=== PATIENT | male | born 1955 | race Caucasian/White ===

== ENCOUNTER 2016-11-12 13:28 | Inpatient (IN) | payer BC ==
[~2016-11-12] VITALS: Ht 152.4 cm; Wt 83.0 kg
[~2016-11-12 13:28] MED LIST: ASPI-664 PO; LISI20TA11 PO; METF500T4 PO
[2016-11-12 20:32] VITALS: Ht 152.4 cm; Wt 83.0 kg
[2016-11-12] MEDS ORDERED: morphine 2 MG INJ IV PRN (21:30)
[2016-11-12] MEDS ORDERED: ONDANSETRON 4 MG INJ IV PRN (21:30)
[2016-11-12] MEDS ORDERED: GLUCOSE GEL 15 GRAM TUBE BUCCAL PRN (22:00)
[2016-11-12] MEDS ORDERED: DEXTROSE 50% 50 ML SYRINGE IV PRN ×2 (22:00)
[2016-11-12] MEDS ORDERED: GLUCOSE GEL 15 GRAM TUBE PO PRN ×2 (22:00)
[2016-11-12] MEDS ORDERED: GLUCAGON 1 MG INJ IM PRN (22:00)
[2016-11-12] MEDS: CEFTRIAXONE 1 GM/50 ML (PMX) 50 ML IVPB SCH (22:29)
[2016-11-13 02:00] VITALS: BP 144/78; PULSE 79; RESP 18
[2016-11-13] MEDS: ACCU-CHEK XX SCH (02:00)
[2016-11-13] MEDS: PANTOPRAZOLE (EC) 40 MG TAB PO SCH (05:50)
[2016-11-13 06:08] LABS: ADD SCAN DIFF NO
[2016-11-13 06:15] LABS: BASOPHILS % 0.3 % (0.0-2.0); EOSINOPHILS # 0.1 10^3/ul (0.0-0.5); EOSINOPHILS % 1.8 % (0.0-7.0); HEMATOCRIT 37.4 % (42.0-52.0); HEMOGLOBIN 12.6 g/dl (14.0-18.0); LYMPHOCYTES # 1.2 10^3/ul (0.8-2.9); MEAN CORPUSCULAR HEMOGLOBIN 28.8 pg (29.0-33.0); MEAN CORPUSCULAR HGB CONC 33.7 g/dl (32.0-37.0); MEAN CORPUSCULAR VOLUME 85.6 fl (82.0-101.0); MEAN PLATELET VOLUME 10.4 fl (7.4-10.4); MONOCYTE # 0.5 10^3/ul (0.3-0.9); MONOCYTES % 6.8 % (0.0-11.0); NEUTROPHIL # 5.2 10^3/ul (1.6-7.5); NEUTROPHILS % 73.5 % (39.0-77.0); PLATELET COUNT 195 10^3/UL (140-415); RED BLOOD COUNT 4.37 10^6/ul (4.70-6.10); RED CELL DISTRIBUTION WIDTH 12.2 % (11.5-14.5); WHITE BLOOD COUNT 7.1 10^3/ul (4.8-10.8)
[2016-11-13 07:00] LABS: ALBUMIN 4.4 g/dl (3.3-4.9); ALBUMIN/GLOBULIN RATIO 1.37; BILIRUBIN,INDIRECT 0.2 mg/dl (0-1.1); BILIRUBIN,TOTAL 0.2 mg/dl (0.2-1.3); CALCIUM 9.7 mg/dl (8.4-10.2); CREATININE 1.17 mg/dl (0.61-1.24); POTASSIUM 4.6 mmol/L (3.5-5.1); TOTAL PROTEIN 7.6 g/dl (6.1-8.1)
[2016-11-13] MEDS ORDERED: metFORMIN 500 MG TAB PO SCH (08:05)
[2016-11-13] MEDS: INSULIN ASPART [NOVOLOG] 3 ML PEN SC SCH ×6 (08:21→21:51)
[2016-11-13 08:23] VITALS: BP 157/87; RESP 18
[2016-11-13] MEDS: ASPIRIN (EC) 81 MG TAB PO SCH (08:58)
[2016-11-13] MEDS: ENOXAPARIN 40 MG/0.4 ML SYG SC SCH (09:02)
--- NOTE | 2016-11-13 12:06 | HP ---
Date/Time of Note Date/Time of Note DATE: 11/13/16 TIME: 12:04 Assessment/Plan VTE Prophylaxis VTE Prophylaxis Intervention: ambulation Lines/Catheters IV Catheter Type (from Nrs): Saline Lock Assessment/Plan Chief Complaint/Hosp Course 1. Cellulitis left foot 2. Anemia 3. Hypertension uncontrolled 4. DM type II, uncontrolled 5. CKD, GFR 56 ml/min 6. Obesity 7. S/p cardiac angioplasty 3 vessels 2004 Problems: Assessment/Plan 1. Better DM type II control 2. Continue a/b 3. Wound care by dr Pardo possible I and D HPI/ROS Admit Date/Time Admit Date/Time Nov 12, 2016 at 19:40 Hx of Present Illness 61 yo [place] male reported that he stepped on the nail on 11/07/16, after that he felt pain and his left leg increases in size. There were purulent drainage out. Pt went in [facility] 0n 11/12/2016. He was transferred to [facility] per his insurance coverage ROS Constitutional: no complaints Respiratory: no complaints Cardiovascular: no complaints Musculoskeletal: restricted range of motion (left leg), swelling (left leg) Skin: skin lesions (left leg with discharge) Endocrine: temp intolerance, No dry skin, No no complaints, No other, No polydypsia, No polyuria, No weight change Psychological: anxiety, confusion, depression, no complaints, No nl mood/affect, No other, No suicidal PMH/Family/Social Past Medical History Medical History: coronary artery disease, high cholesterol, hypertension Past Surgical History Past Surgical Hx: coronary bypass surgery (3 vessels), other (left hernia repair when pt was 18 yo) Family History Significant Family History: no pertinent family hx Social History Alcohol Use: rarely Smoking Status: Former smoker Drug Use: none Exam/Review of Systems Vital Signs Vitals Vital Signs Date Time Temp Pulse Resp B/P Pulse Ox O2 Delivery O2 Flow Rate FiO2 11/13/16 08:23 99.1 94 18 157/87 97 11/13/16 02:00 Room Air Intake and Output 11/12/16 11/12/16 11/13/16 15:00 23:00 07:00 Intake Total 350 ml Output Total 800 ml Balance -450 ml Exam Constitutional: alert, oriented Psych: no complaints Head: normocephalic Eyes: nl conjunctiva ENMT: nl external ears & nose Neck: supple Respiratory: clear to auscultation, normal air movement Cardiovascular: regular rate and rhythm Gastrointestinal: soft Genitourinary - Male: nl scrotum Musculoskeletal: swelling (left foot with wound) Neurological: SYSTEM AUDITOR II-XII intact Lymph: nl lymph nodes Labs Result Diagram: 11/13/1654211/13/16542 Medications Medications Current Medications Aspirin (Halfprin) 81 mg DAILY PO Last administered on 11/13/16 08:58; Admin Dose 81 MG; Start 11/13/16 at 09:00 Pantoprazole (Protonix Tab) 40 mg DAILY@06 PO Last administered on 11/13/16 05: 50; Admin Dose 40 MG; Start 11/13/16 at 06:00 Acetaminophen (Tylenol Tab) 650 mg Q6H PRN PO PAIN AND OR ELEVATED TEMP; Start 11/12/16 at 21:30 Enoxaparin Sodium (Lovenox) 40 mg DAILY SC Last administered on 11/13/16 09:02 ; Admin Dose 40 MG; Start 11/13/16 at 09:00 Morphine Sulfate (morphine) 2 mg Q4H PRN IV PAIN; Start 11/12/16 at 21:30 Ondansetron HCl 4 mg 4 mg Q6H PRN IV NAUSEA AND/OR VOMITING; Start 11/12/16 at 21:30 Ceftriaxone Sodium (Rocephin) 50 ml @ 100 mls/hr Q24H IVPB Last administered on 11/12/16 22:29; Admin Dose 100 MLS/HR; Start 11/12/16 at 21:30 Diagnostic Test (Pha) (Accu-Chek) 1 ea 02 XX Last administered on 11/13/16 02: 00; Admin Dose 1 EA; Start 11/13/16 at 02:00 Miscellaneous Information 1 ea NOTE XX ; Start 11/12/16 at 22:00 Glucose (Glutose) 15 gm Q15M PRN PO DECREASED GLUCOSE; Start 11/12/16 at 22:00 Glucose (Glutose) 22.5 gm Q15M PRN PO DECREASED GLUCOSE; Start 11/12/16 at 22:00 Dextrose (D50w Syringe) 25 ml Q15M PRN IV DECREASED GLUCOSE; Start 11/12/16 at 22:00 Dextrose (D50w Syringe) 50 ml Q15M PRN IV DECREASED GLUCOSE; Start 11/12/16 at 22:00 Glucagon (Glucagen) 1 mg Q15M PRN IM DECREASED GLUCOSE; Start 11/12/16 at 22:00 Glucose (Glutose) 15 gm Q15M PRN BUCCAL DECREASED GLUCOSE; Start 11/12/16 at 22: 00 Insulin Glargine (Lantus) 15 unit DAILY@20 SC ; Start 11/13/16 at 20:00 ADAN PALMA Nov 13, 2016 12:06
[2016-11-13] MEDS ORDERED: METOPROLOL (XL) 50 MG TAB PO SCH (12:30)
[2016-11-13] MEDS: LINAGLIPTIN 5 MG TABLET PO SCH (13:19)
--- NOTE | 2016-11-13 14:00 | CONS ---
Date/Time of Note Date/Time of Note DATE: 11/13/16 TIME: 13:59 Assessment/Plan Assessment/Plan Problems: (1) Abscess of left foot (2) Cellulitis of left foot Additional Assessment/Plan Patient will be scheduled for surgery (I&D) of left foot abscess with cellulitis. Remain nonweightbearing on the left foot. At risk for limb loss. Thank you again for involving me in the care of this patient. If you have any questions regarding this case, please feel free to contact me at pager: or reach me at mobile: [phone]. Consultation Date/Type/Reason Admit Date/Time Nov 12, 2016 at 19:40 Date of Consultation: Nov 13, 2016 Type of Consultation: Foot and ankle surgery Hx of Present Illness Thank you very much for involving me in the care of this patient. As you very well know this is a 61-year-old [place] male patient who apparently stepped on a nail on November 07, 2016. I was consulted for evaluation of an active infection in the left foot. Patient reports pain, swelling and drainage from the left foot. Patient says that he went to [facility] on November 12, 2016 because the condition was getting worse. He says that he was evaluated there and was transferred to [facility] secondary to insurance coverage. Currently, patient denies fever and chills. Patient's past medical history significant for type 2 diabetes mellitus, hypertension, CKD, obesity, status post cardiac angioplasty 3 vessels 2003. Constitutional: No chills, No diaphoresis, No disoriented, No febrile, No improved, No no complaints, No other, No poor po, No requiring IVF, No requiring O2 Eyes: No discharge, No no complaints, No other, No pain, No redness, No visual change ENT: No bleeding, No congestion, No discharge, No dysphagia, No no complaints, No other, No pain, No sore throat Respiratory: no complaints, No cough, No other, No pain, No pleuritic pain, No shortness of breath, No sputum, No wheezing Cardiovascular: no complaints, No chest pain, No edema, No lightheadedness, No orthopenea, No other, No palpitations, No paroxysmal nocturnal dyspnea Gastrointestinal: No blood, No constipation, No decreased appetite, No diarrhea , No flatus, No nausea, No no complaints, No other, No pain, No passing stool, No vomiting Musculoskeletal: restricted range of motion (left leg), swelling (left leg) Skin: skin lesions (left leg with discharge) Psychological: no complaints Past Medical History As per history of present illness. Medical History: coronary artery disease, high cholesterol, hypertension Past Surgical History As per history of present illness. Past Surgical Hx: coronary bypass surgery, other Social History As per history of present illness. Alcohol Use: rarely Smoking Status: Former smoker Drug Use: none Exam/Review of Systems Vital Signs Vitals Vital Signs Date Time Temp Pulse Resp B/P Pulse Ox O2 Delivery O2 Flow Rate FiO2 11/13/16 08:23 99.1 94 18 157/87 97 11/13/16 02:00 Room Air Intake and Output 11/12/16 11/12/16 11/13/16 15:00 23:00 07:00 Intake Total 350 ml Output Total 800 ml Balance -450 ml Exam Morbidly obese male patient laying supine in bed. Dressing present on the left foot. Dressing was removed. Erythema noted involving the plantar medial and medial left foot with an obvious abscess. Puncture wound 2 noted with purulent drainage. Tender to examination to palpation. There is malodor present. Erythema extends to proximal ankle joint and is marked since admission to the emergency room. Labs reviewed. Imaging reviewed. Results Result Diagram: 11/13/16 0543 11/13/16 0543 Results 24 hrs Laboratory Tests Test 11/13/16 02:16 11/13/16 05:43 11/13/16 08:12 11/13/16 11:58 Bedside Glucose 361 H 322 H 393 H White Blood Count 7.1 # Red Blood Count 4.37 L Hemoglobin 12.6 L Hematocrit 37.4 L Mean Corpuscular Volume 85.6 Mean Corpuscular Hemoglobin 28.8 L Mean Corpuscular Hemoglobin Concent 33.7 Red Cell Distribution Width 12.2 Platelet Count 195 Mean Platelet Volume 10.4 Neutrophils % 73.5 Lymphocytes % 17.0 Monocytes % 6.8 Eosinophils % 1.8 Basophils % 0.3 Nucleated Red Blood Cells % 0.0 Neutrophils # 5.2 Lymphocytes # 1.2 Monocytes # 0.5 Eosinophils # 0.1 Basophils # 0.0 Nucleated Red Blood Cells # 0.0 Sodium Level 139 Potassium Level 4.6 Chloride Level 96 L Carbon Dioxide Level 27 Anion Gap 21 H Blood Urea Nitrogen 21 H Creatinine 1.17 Glucose Level 374 H Hemoglobin A1c 10.7 H Calcium Level 9.7 Total Bilirubin 0.2 Direct Bilirubin 0.00 Indirect Bilirubin 0.2 Aspartate Amino Transf (AST/SGOT) 20 Alanine Aminotransferase (ALT/SGPT) 20 Alkaline Phosphatase 78 Total Protein 7.6 Albumin 4.4 Globulin 3.20 Albumin/Globulin Ratio 1.37 Medications Medications Current Medications Aspirin (Halfprin) 81 mg DAILY PO Last administered on 11/13/16 08:58; Admin Dose 81 MG; Start 11/13/16 at 09:00 Pantoprazole (Protonix Tab) 40 mg DAILY@06 PO Last administered on 11/13/16 05: 50; Admin Dose 40 MG; Start 11/13/16 at 06:00 Acetaminophen (Tylenol Tab) 650 mg Q6H PRN PO PAIN AND OR ELEVATED TEMP; Start 11/12/16 at 21:30 Enoxaparin Sodium (Lovenox) 40 mg DAILY SC Last administered on 11/13/16 09:02 ; Admin Dose 40 MG; Start 11/13/16 at 09:00 Morphine Sulfate (morphine) 2 mg Q4H PRN IV PAIN; Start 11/12/16 at 21:30 Ondansetron HCl 4 mg 4 mg Q6H PRN IV NAUSEA AND/OR VOMITING; Start 11/12/16 at 21:30 Ceftriaxone Sodium (Rocephin) 50 ml @ 100 mls/hr Q24H IVPB Last administered on 11/12/16 22:29; Admin Dose 100 MLS/HR; Start 11/12/16 at 21:30 Diagnostic Test (Pha) (Accu-Chek) 1 ea 02 XX Last administered on 11/13/16 02: 00; Admin Dose 1 EA; Start 11/13/16 at 02:00 Miscellaneous Information 1 ea NOTE XX ; Start 11/12/16 at 22:00 Glucose (Glutose) 15 gm Q15M PRN PO DECREASED GLUCOSE; Start 11/12/16 at 22:00 Glucose (Glutose) 22.5 gm Q15M PRN PO DECREASED GLUCOSE; Start 11/12/16 at 22:00 Dextrose (D50w Syringe) 25 ml Q15M PRN IV DECREASED GLUCOSE; Start 11/12/16 at 22:00 Dextrose (D50w Syringe) 50 ml Q15M PRN IV DECREASED GLUCOSE; Start 11/12/16 at 22:00 Glucagon (Glucagen) 1 mg Q15M PRN IM DECREASED GLUCOSE; Start 11/12/16 at 22:00 Glucose (Glutose) 15 gm Q15M PRN BUCCAL DECREASED GLUCOSE; Start 11/12/16 at 22: 00 Insulin Glargine (Lantus) 15 unit DAILY@20 SC ; Start 11/13/16 at 20:00 Linagliptin (Tradjenta) 5 mg DAILY PO Last administered on 11/13/16 13:19; Admin Dose 5 MG; Start 11/13/16 at 12:30 Metoprolol Succinate (Toprol Xl) 50 mg DAILY PO Last administered on 11/13/16 13:22; Admin Dose 50 MG; Start 11/13/16 at 12:30 RAMA ROSSI DPM Nov 13, 2016 14:00
[2016-11-13] MEDS ORDERED: VANCOMYCIN IV PER PHARMACY XX SCH (15:30)
[2016-11-13] MEDS ORDERED: VANCOMYCIN 1.5 GM in SOD CHLORIDE 0.9% 250 ML IVPB SCH (17:00)
[2016-11-13] MEDS: metFORMIN 500 MG TAB PO SCH (17:39)
[2016-11-13] MEDS ORDERED: INSULIN GLARGINE [LANtus] 3 ML PEN SC SCH (20:00)
[2016-11-13 21:38] VITALS: BP 134/71; PULSE 94; RESP 20
[2016-11-13] MEDS: CEFTRIAXONE 1 GM/50 ML (PMX) 50 ML IVPB SCH (23:28)
[2016-11-14] MEDS: ACCU-CHEK XX SCH (02:00)
[2016-11-14] MEDS: VANCOMYCIN 1 GM in NS 250 ML IVPB SCH ×2 (05:27→17:14)
[2016-11-14] MEDS: PANTOPRAZOLE (EC) 40 MG TAB PO SCH (05:30)
[2016-11-14 06:23] LABS: ADD SCAN DIFF NO
[2016-11-14 06:31] LABS: BASOPHILS % 0.2 % (0.0-2.0); EOSINOPHILS # 0.2 10^3/ul (0.0-0.5); EOSINOPHILS % 1.8 % (0.0-7.0); HEMATOCRIT 41.3 % (42.0-52.0); HEMOGLOBIN 13.5 g/dl (14.0-18.0); LYMPHOCYTES # 1.4 10^3/ul (0.8-2.9); LYMPHOCYTES % 15.9 % (15.0-51.0); MEAN CORPUSCULAR HEMOGLOBIN 28.7 pg (29.0-33.0); MEAN CORPUSCULAR HGB CONC 32.7 g/dl (32.0-37.0); MEAN CORPUSCULAR VOLUME 87.9 fl (82.0-101.0); MEAN PLATELET VOLUME 11.3 fl (7.4-10.4); MONOCYTE # 0.5 10^3/ul (0.3-0.9); MONOCYTES % 6.1 % (0.0-11.0); NEUTROPHIL # 6.6 10^3/ul (1.6-7.5); NEUTROPHILS % 75.5 % (39.0-77.0); PLATELET COUNT 183 10^3/UL (140-415); RED CELL DISTRIBUTION WIDTH 11.9 % (11.5-14.5); WHITE BLOOD COUNT 8.8 10^3/ul (4.8-10.8)
[2016-11-14 06:56] LABS: CALCIUM 9.9 mg/dl (8.4-10.2); CREATININE 1.18 mg/dl (0.61-1.24); POTASSIUM 4.3 mmol/L (3.5-5.1)
[2016-11-14 07:49] VITALS: BP 155/82; RESP 18
[2016-11-14] MEDS: METOPROLOL (XL) 100 MG TAB PO SCH (08:38)
[2016-11-14] MEDS: ASPIRIN (EC) 81 MG TAB PO SCH (08:38)
[2016-11-14] MEDS: LINAGLIPTIN 5 MG TABLET PO SCH (08:38)
[2016-11-14] MEDS: metFORMIN 500 MG TAB PO SCH ×2 (08:38→17:20)
[2016-11-14] MEDS: INSULIN ASPART [NOVOLOG] 3 ML PEN SC SCH ×7 (08:40→20:42)
[2016-11-14] MEDS: ENOXAPARIN 40 MG/0.4 ML SYG SC SCH (08:41)
--- NOTE | 2016-11-14 13:27 | RADRPT ---
PROCEDURE: MRI OF THE LEFT FOOT. CLINICAL INDICATION: Left foot abscess. Pain around the toes and metatarsals along with swelling TECHNIQUE: Multiple MRI images of the left foot were obtained in multiple planes utilizing multipl e pulse sequences. Images were interpreted on the high-resolution PACS system. COMPARISON: None. FINDINGS: 1st ray: No evidence for osteomyelitis or fracture. There is degenerative change of the base of the proximal phalanx with changes consisting of chondromalacia and subcortical cyst formation and bone marrow edema on sagittal image number 26. There is diffuse soft tissue swelling of the plantar aspe ct of the left foot superficial to the flexor hallucis longus. Findings could be a phlegmon or erwin y abscess inflammatory mass is best seen on axial STIR images 2 and 3 with a proximal to distal jose elias urement of 4.5 cm and a transverse dimension of 2.1 cm. Dorsal to ventral measurement is 11 mm. Co nsider ultrasound for further evaluation if clinically indicated. There is synovitis of the first m etatarsal phalangeal joint and there is marked thickening and edema and scarring of the medial colla teral ligament. Findings suggest a healing sprain. No 2nd ray: No evidence for osteochondral defect. No evidence for plantar plate defect. No evidence for subluxation. No mass lesion identified. No evidence for tendon tear. Ligaments are intact. No evidence for metatarsal fracture. 3rd ray through 5th ray: No evidence for osteochondral defect. No evidence for plantar plate defec t. No evidence for subluxation. No mass lesion identified. No evidence for tendon tear. Ligaments are intact. No evidence for metatarsal fracture. Other findings: There is no evidence for neuroma. No evidence for plantar fibroma. No solid mass l esion identified. IMPRESSION: 1. Inflammatory, possibly fluid filled mass along the plantar aspect of the left forefoot plantar t o the first metatarsal phalangeal joint. Findings could be a phlegmon or early abscess. Consider u ltrasound for further clarification if clinically indicated. 2. No evidence for osteomyelitis. There is moderate degenerative change of the first metatarsal ph alangeal joint and there are findings suggesting a healing medial collateral ligament tear. RPTAT: XX .Gregorio Morales MD, MD Date Time Electronically viewed and signed by .Gregorio Morales MD, on 11/14/2016 13:27 .T/
--- NOTE | 2016-11-14 15:09 | PN ---
Date/Time of Note Date/Time of Note DATE: 11/14/16 TIME: 15:08 Assessment/Plan VTE Prophylaxis VTE Prophylaxis Intervention: other Lines/Catheters IV Catheter Type (from Nrsg): Saline Lock Assessment/Plan Chief Complaint/Hosp Course 1. Cellulitis left foot,ABSCESS 2. Anemia 3. Hypertension 4. DM type II, uncontrolled 5. CKD, GFR 56 ml/min 6. Obesity 7. S/p cardiac angioplasty 3 vessels 2003 PLAN PER PODIATRY Problems: Subjective 24 Hr Interval Summary Respiratory: no complaints Cardiovascular: no complaints Skin: other (FOOT PAIN+) Exam/Review of Systems Vital Signs Vitals Vital Signs Date Time Temp Pulse Resp B/P Pulse Ox O2 Delivery O2 Flow Rate FiO2 11/14/16 07:49 98.6 89 18 155/82 96 11/13/16 21:38 Room Air Intake and Output 11/13/16 11/13/16 11/14/16 15:00 23:00 07:00 Intake Total 1450 ml 290 ml Output Total 350 ml Balance 1450 ml -60 ml Exam Neck: supple Respiratory: clear to auscultation Cardiovascular: regular rate and rhythm Gastrointestinal: soft Extremities: edema (+FOOT) Results Result Diagram: 11/14/16 0535 11/14/16 0535 Results 24 hrs Laboratory Tests Test 11/13/16 17:40 11/13/16 21:43 11/14/16 02:21 11/14/16 05:35 Bedside Glucose 238 H 281 H 212 White Blood Count 8.8 # Red Blood Count 4.70 Hemoglobin 13.5 L Hematocrit 41.3 L Mean Corpuscular Volume 87.9 Mean Corpuscular Hemoglobin 28.7 L Mean Corpuscular Hemoglobin Concent 32.7 Red Cell Distribution Width 11.9 Platelet Count 183 Mean Platelet Volume 11.3 H Neutrophils % 75.5 Lymphocytes % 15.9 Monocytes % 6.1 Eosinophils % 1.8 Basophils % 0.2 Nucleated Red Blood Cells % 0.0 Neutrophils # 6.6 Lymphocytes # 1.4 Monocytes # 0.5 Eosinophils # 0.2 Basophils # 0.0 Nucleated Red Blood Cells # 0.0 Sodium Level 140 Potassium Level 4.3 Chloride Level 95 L Carbon Dioxide Level 28 Anion Gap 21 H Blood Urea Nitrogen 21 H Creatinine 1.18 Glucose Level 233 #H Calcium Level 9.9 Test 11/14/16 08:12 11/14/16 12:11 Bedside Glucose 281 H 196 Medications Medications Current Medications Aspirin (Halfprin) 81 mg DAILY PO Last administered on 11/14/16 08:38; Admin Dose 81 MG; Start 11/13/16 at 09:00 Pantoprazole (Protonix Tab) 40 mg DAILY@06 PO Last administered on 11/14/16 05: 30; Admin Dose 40 MG; Start 11/13/16 at 06:00 Acetaminophen (Tylenol Tab) 650 mg Q6H PRN PO PAIN AND OR ELEVATED TEMP; Start 11/12/16 at 21:30 Enoxaparin Sodium (Lovenox) 40 mg DAILY SC Last administered on 11/14/16 08:41 ; Admin Dose 40 MG; Start 11/13/16 at 09:00 Morphine Sulfate (morphine) 2 mg Q4H PRN IV PAIN Last administered on 11/13/16 18:41; Admin Dose 2 MG; Start 11/12/16 at 21:30 Ondansetron HCl 4 mg 4 mg Q6H PRN IV NAUSEA AND/OR VOMITING; Start 11/12/16 at 21:30 Ceftriaxone Sodium (Rocephin) 50 ml @ 100 mls/hr Q24H IVPB Last administered on 11/13/16 23:28; Admin Dose 100 MLS/HR; Start 11/12/16 at 21:30 Diagnostic Test (Pha) (Accu-Chek) 1 ea 02 XX Last administered on 11/13/16 02: 00; Admin Dose 1 EA; Start 11/13/16 at 02:00 Miscellaneous Information 1 ea NOTE XX ; Start 11/12/16 at 22:00 Glucose (Glutose) 15 gm Q15M PRN PO DECREASED GLUCOSE; Start 11/12/16 at 22:00 Glucose (Glutose) 22.5 gm Q15M PRN PO DECREASED GLUCOSE; Start 11/12/16 at 22:00 Dextrose (D50w Syringe) 25 ml Q15M PRN IV DECREASED GLUCOSE; Start 11/12/16 at 22:00 Dextrose (D50w Syringe) 50 ml Q15M PRN IV DECREASED GLUCOSE; Start 11/12/16 at 22:00 Glucagon (Glucagen) 1 mg Q15M PRN IM DECREASED GLUCOSE; Start 11/12/16 at 22:00 Glucose (Glutose) 15 gm Q15M PRN BUCCAL DECREASED GLUCOSE; Start 11/12/16 at 22: 00 Insulin Glargine (Lantus) 15 unit DAILY@20 SC Last administered on 11/13/16 21: 48; Admin Dose 15 UNIT; Start 11/13/16 at 20:00 Linagliptin 5 mg 5 mg DAILY PO Last administered on 11/14/16 08:38; Admin Dose 5 MG; Start 11/13/16 at 12:30 Vancomycin HCl (Vancocin) 250 ml @ 125 mls/hr Q12H IVPB Last administered on 05:27; Admin Dose 125 MLS/HR; Start 11/14/16 at 05:00 Metoprolol Succinate (Toprol Xl) 100 mg DAILY PO Last administered on 11/14/16 08:38; Admin Dose 100 MG; Start 11/14/16 at 09:00 Miscellaneous Information (*Rx Drug Level Order Reminder*) VANCOMYCIN TROUGH AT 0400 ONCE ONCE XX ; Start 11/15/16 at 04:00; Stop 11/15/16 at 04:01 DENY VELASQUEZ MD Nov 14, 2016 15:09
--- NOTE | 2016-11-14 15:55 | CONS ---
Date/Time of Note Date/Time of Note DATE: 11/14/16 TIME: 15:54 Assessment/Plan Assessment/Plan Chief Complaint/Hosp Course No acute changes overnight, patient is alert, looks comfortable, no fevers T-max 99.6 pulse 89 respirations 18 blood pressure 155/82 saturation 96 on room air WBC 8.8, no shift, BUN 21 creatinine 1.18 MRI of the left foot revealed fluid-filled mass along the plantar aspect of the left forefoot. No evidence of osteomyelitis Antibiotics: Vancomycin Rocephin. Physical examination: Obese, well-developed elderly man who is alert in no distress. Head atraumatic, normocephalic. Neck is supple. Chest rise symmetrical breath sounds clear bilaterally. S1-S2. Abdomen soft, bowel tones present. Extremities with left foot edema and erythema Assessment: 1. Left foot cellulitis with abscess, no evidence of osteomyelitis per MRI 2. Systemic inflammatory response syndrome 3. Diabetes with diabetic neuropathy 4. Hypertension 5. Chronic kidney disease Plan: Continue present care, antibiotics, follow podiatry recommendations, pending debridement Discussed with staff and patient Problems: Consultation Date/Type/Reason Admit Date/Time Nov 12, 2016 at 19:40 Initial Consult Date Type of Consultation: id Exam/Review of Systems Vital Signs Vitals Vital Signs Date Time Temp Pulse Resp B/P Pulse Ox O2 Delivery O2 Flow Rate FiO2 11/14/16 07:49 98.6 89 18 155/82 96 11/13/16 21:38 Room Air Intake and Output 11/13/16 11/13/16 11/14/16 15:00 23:00 07:00 Intake Total 1450 ml 290 ml Output Total 350 ml Balance 1450 ml -60 ml Results Result Diagram: 11/14/16 0535 11/14/16 0535 Results 24 hrs Laboratory Tests Test 11/13/16 17:40 11/13/16 21:43 11/14/16 02:21 11/14/16 05:35 Bedside Glucose 238 H 281 H 212 White Blood Count 8.8 # Red Blood Count 4.70 Hemoglobin 13.5 L Hematocrit 41.3 L Mean Corpuscular Volume 87.9 Mean Corpuscular Hemoglobin 28.7 L Mean Corpuscular Hemoglobin Concent 32.7 Red Cell Distribution Width 11.9 Platelet Count 183 Mean Platelet Volume 11.3 H Neutrophils % 75.5 Lymphocytes % 15.9 Monocytes % 6.1 Eosinophils % 1.8 Basophils % 0.2 Nucleated Red Blood Cells % 0.0 Neutrophils # 6.6 Lymphocytes # 1.4 Monocytes # 0.5 Eosinophils # 0.2 Basophils # 0.0 Nucleated Red Blood Cells # 0.0 Sodium Level 140 Potassium Level 4.3 Chloride Level 95 L Carbon Dioxide Level 28 Anion Gap 21 H Blood Urea Nitrogen 21 H Creatinine 1.18 Glucose Level 233 #H Calcium Level 9.9 Test 11/14/16 08:12 11/14/16 12:11 Bedside Glucose 281 H 196 Medications Medications Current Medications Aspirin (Halfprin) 81 mg DAILY PO Last administered on 11/14/16 08:38; Admin Dose 81 MG; Start 11/13/16 at 09:00 Pantoprazole (Protonix Tab) 40 mg DAILY@06 PO Last administered on 11/14/16 05: 30; Admin Dose 40 MG; Start 11/13/16 at 06:00 Acetaminophen (Tylenol Tab) 650 mg Q6H PRN PO PAIN AND OR ELEVATED TEMP; Start 11/12/16 at 21:30 Enoxaparin Sodium (Lovenox) 40 mg DAILY SC Last administered on 11/14/16 08:41 ; Admin Dose 40 MG; Start 11/13/16 at 09:00 Morphine Sulfate (morphine) 2 mg Q4H PRN IV PAIN Last administered on 11/13/16 18:41; Admin Dose 2 MG; Start 11/12/16 at 21:30 Ondansetron HCl 4 mg 4 mg Q6H PRN IV NAUSEA AND/OR VOMITING; Start 11/12/16 at 21:30 Ceftriaxone Sodium (Rocephin) 50 ml @ 100 mls/hr Q24H IVPB Last administered on 11/13/16 23:28; Admin Dose 100 MLS/HR; Start 11/12/16 at 21:30 Diagnostic Test (Pha) (Accu-Chek) 1 ea 02 XX Last administered on 11/13/16 02: 00; Admin Dose 1 EA; Start 11/13/16 at 02:00 Miscellaneous Information 1 ea NOTE XX ; Start 11/12/16 at 22:00 Glucose (Glutose) 15 gm Q15M PRN PO DECREASED GLUCOSE; Start 11/12/16 at 22:00 Glucose (Glutose) 22.5 gm Q15M PRN PO DECREASED GLUCOSE; Start 11/12/16 at 22:00 Dextrose (D50w Syringe) 25 ml Q15M PRN IV DECREASED GLUCOSE; Start 11/12/16 at 22:00 Dextrose (D50w Syringe) 50 ml Q15M PRN IV DECREASED GLUCOSE; Start 11/12/16 at 22:00 Glucagon (Glucagen) 1 mg Q15M PRN IM DECREASED GLUCOSE; Start 11/12/16 at 22:00 Glucose (Glutose) 15 gm Q15M PRN BUCCAL DECREASED GLUCOSE; Start 11/12/16 at 22: 00 Linagliptin 5 mg 5 mg DAILY PO Last administered on 11/14/16 08:38; Admin Dose 5 MG; Start 11/13/16 at 12:30 Vancomycin HCl (Vancocin) 250 ml @ 125 mls/hr Q12H IVPB Last administered on 05:27; Admin Dose 125 MLS/HR; Start 11/14/16 at 05:00 Metoprolol Succinate (Toprol Xl) 100 mg DAILY PO Last administered on 11/14/16 08:38; Admin Dose 100 MG; Start 11/14/16 at 09:00 Miscellaneous Information (*Rx Drug Level Order Reminder*) VANCOMYCIN TROUGH AT 0400 ONCE ONCE XX ; Start 11/15/16 at 04:00; Stop 11/15/16 at 04:01 Insulin Glargine (Lantus) 20 unit DAILY@20 SC ; Start 11/14/16 at 20:00 SENG DUKE NP Nov 14, 2016 15:55
[2016-11-14 19:58] VITALS: BP 151/79; RESP 20
[2016-11-14] MEDS: INSULIN GLARGINE [LANtus] 3 ML PEN SC SCH (20:44)
[2016-11-14] MEDS: CEFTRIAXONE 1 GM/50 ML (PMX) 50 ML IVPB SCH (20:46)
[2016-11-14] MEDS: ACETAMINOPHEN 325 MG TAB PO PRN (20:53)
[2016-11-15] VITALS (15 sets, daily range): BP systolic 100–134; BP diastolic 56–78; PULSE 75–88; RESP 17–25
[2016-11-15] MEDS: ACCU-CHEK XX SCH (02:00)
[2016-11-15] MEDS: PANTOPRAZOLE (EC) 40 MG TAB PO SCH (05:26)
[2016-11-15] MEDS: VANCOMYCIN 1 GM in NS 250 ML IVPB SCH ×2 (05:26→17:20)
[2016-11-15] MEDS: metFORMIN 500 MG TAB PO SCH ×2 (07:51→17:19)
[2016-11-15] MEDS: INSULIN ASPART [NOVOLOG] 3 ML PEN SC SCH ×7 (07:57→21:00)
[2016-11-15] MEDS: ASPIRIN (EC) 81 MG TAB PO SCH (08:46)
[2016-11-15] MEDS: METOPROLOL (XL) 100 MG TAB PO SCH (08:47)
[2016-11-15] MEDS: LINAGLIPTIN 5 MG TABLET PO SCH (08:47)
[2016-11-15] MEDS: ENOXAPARIN 40 MG/0.4 ML SYG SC SCH (09:27)
--- NOTE | 2016-11-15 13:28 | CONS ---
Date/Time of Note Date/Time of Note DATE: 11/15/16 TIME: 13:27 Assessment/Plan Assessment/Plan Chief Complaint/Hosp Course No acute changes overnight, patient is alert, looks comfortable, no fevers MRI of the left foot revealed fluid-filled mass along the plantar aspect of the left forefoot. No evidence of osteomyelitis Antibiotics: Vancomycin Rocephin. Microbiology: Left foot drainage growing staph aureus preliminary Physical examination: Obese, well-developed elderly man who is alert in no distress. Head atraumatic, normocephalic. Neck is supple. Chest rise symmetrical breath sounds clear bilaterally. S1-S2. Abdomen soft, bowel tones present. Extremities with left foot edema, erythema and purulent drainage Assessment: 1. Left foot cellulitis with abscess, no evidence of osteomyelitis per MRI 2. Systemic inflammatory response syndrome 3. Diabetes with diabetic neuropathy 4. Hypertension 5. Chronic kidney disease Plan: Remains stable, continue present care, antibiotics, follow final cultures and podiatry recommendations, pending debridement Discussed with staff and patient Problems: Consultation Date/Type/Reason Admit Date/Time Nov 12, 2016 at 19:40 Type of Consultation: id Exam/Review of Systems Vital Signs Vitals Vital Signs Date Time Temp Pulse Resp B/P Pulse Ox O2 Delivery O2 Flow Rate FiO2 11/15/16 07:23 98.0 76 18 134/78 96 11/13/16 21:38 Room Air Intake and Output 11/14/16 11/14/16 11/15/16 15:00 23:00 07:00 Intake Total 250 ml 900 ml 360 ml Balance 250 ml 900 ml 360 ml Results Result Diagram: 11/14/16 0535 11/14/16 0535 Results 24 hrs Laboratory Tests Test 11/14/16 17:11 11/14/16 20:41 11/15/16 03:54 11/15/16 07:50 Bedside Glucose 243 H 151 151 Vancomycin Level Trough 12.9 Test 11/15/16 12:00 Bedside Glucose 160 Medications Medications Current Medications Aspirin (Halfprin) 81 mg DAILY PO Last administered on 11/15/16 08:46; Admin Dose 81 MG; Start 11/13/16 at 09:00 Pantoprazole (Protonix Tab) 40 mg DAILY@06 PO Last administered on 11/15/16 05 :26; Admin Dose 40 MG; Start 11/13/16 at 06:00 Acetaminophen (Tylenol Tab) 650 mg Q6H PRN PO PAIN AND OR ELEVATED TEMP Last administered on 11/14/16 20:53; Admin Dose 650 MG; Start 11/12/16 at 21:30 Enoxaparin Sodium (Lovenox) 40 mg DAILY SC Last administered on 11/15/16 09:27 ; Admin Dose 40 MG; Start 11/13/16 at 09:00 Morphine Sulfate (morphine) 2 mg Q4H PRN IV PAIN Last administered on 11/13/16 18:41; Admin Dose 2 MG; Start 11/12/16 at 21:30 Ondansetron HCl 4 mg 4 mg Q6H PRN IV NAUSEA AND/OR VOMITING; Start 11/12/16 at 21:30 Ceftriaxone Sodium (Rocephin) 50 ml @ 100 mls/hr Q24H IVPB Last administered on 11/14/16 20:46; Admin Dose 100 MLS/HR; Start 11/12/16 at 21:30 Diagnostic Test (Pha) (Accu-Chek) 1 ea 02 XX Last administered on 11/13/16 02: 00; Admin Dose 1 EA; Start 11/13/16 at 02:00 Miscellaneous Information 1 ea NOTE XX ; Start 11/12/16 at 22:00 Glucose (Glutose) 15 gm Q15M PRN PO DECREASED GLUCOSE; Start 11/12/16 at 22:00 Glucose (Glutose) 22.5 gm Q15M PRN PO DECREASED GLUCOSE; Start 11/12/16 at 22:00 Dextrose (D50w Syringe) 25 ml Q15M PRN IV DECREASED GLUCOSE; Start 11/12/16 at 22:00 Dextrose (D50w Syringe) 50 ml Q15M PRN IV DECREASED GLUCOSE; Start 11/12/16 at 22:00 Glucagon (Glucagen) 1 mg Q15M PRN IM DECREASED GLUCOSE; Start 11/12/16 at 22:00 Glucose (Glutose) 15 gm Q15M PRN BUCCAL DECREASED GLUCOSE; Start 11/12/16 at 22: 00 Linagliptin 5 mg 5 mg DAILY PO Last administered on 11/15/16 08:47; Admin Dose 5 MG; Start 11/13/16 at 12:30 Vancomycin HCl (Vancocin) 250 ml @ 125 mls/hr Q12H IVPB Last administered on 05:26; Admin Dose 125 MLS/HR; Start 11/14/16 at 05:00 Metoprolol Succinate (Toprol Xl) 100 mg DAILY PO Last administered on 08:47; Admin Dose 100 MG; Start 11/14/16 at 09:00 Insulin Glargine (Lantus) 20 unit DAILY@20 SC Last administered on 11/14/16 20: 44; Admin Dose 20 UNIT; Start 11/14/16 at 20:00 SENG DUKE NP Nov 15, 2016 13:28
--- NOTE | 2016-11-15 18:22 | HPN ---
Date/Time of Note Date/Time of Note DATE: 11/15/16 TIME: 18:21 Interval H&P Admission Note Pt. seen H&P reviewed: No system changes RAMA ROSSI DPM Nov 15, 2016 18:22
--- NOTE | 2016-11-15 18:22 | PN ---
Date/Time of Note Date/Time of Note DATE: 11/15/16 TIME: 18:21 Assessment/Plan Lines/Catheters IV Catheter Type (from [facility]): Saline Lock Assessment/Plan Problems: (1) Abscess of left foot (2) Cellulitis of left foot (3) S/P angioplasties (4) Former cigarette smoker Assessment/Plan Patient is scheduled for surgical intervention to include incision and drainage of the left foot. Patient will be seen in the operating room. Preoperative orders have been written. Risks and complications of this type of surgery was discussed with patient in great detail. Risks and complications include, but are not limited to, postop pain, postoperative infection, chronic pain and disability, failure of surgery to correct the problem, need for additional surgical procedures, wound infection , allergic reactions to suture material, deep venous thrombosis, limb loss, loss of life. Patient seems to understand the risks and complications discussed and agrees to the procedure. An informed consent was signed, obtained and placed in the chart. Subjective 24 Hr Interval Summary Patient was seen at bedside. Patient is in no acute distress. Patient reports no new adverse events. Patient denies fever, chills, nausea or vomiting. Patient denies pain. Patient denies recent trauma. Patient reports bandages are being changed as directed. Patient does not report any new problems. Constitutional: BM, ambulates, flatus, improved, no complaints, urine output Pain Control: well controlled Exam/Review of Systems Vital Signs Vitals Vital Signs Date Time Temp Pulse Resp B/P Pulse Ox O2 Delivery O2 Flow Rate FiO2 11/17/16 07:26 98.1 66 18 127/68 68 11/15/16 23:00 Room Air Intake and Output 11/16/16 11/16/16 11/17/16 15:00 23:00 07:00 Intake Total 1410 ml 340 ml Balance 1410 ml 340 ml Exam Free Text/Dictation No major changes noted on examination today except for slight decrease in erythema of the left foot. Patient continues to have purulent drainage from the left foot and has open wound 2 from the puncture lesion. There is decrease in tenderness to palpation. Temperature gradient is also normalized. Patient is scheduled for incision and drainage. Results Result Diagram: 11/16/16 0501 11/16/16 0501 RAMA ROSSI DPM Nov 15, 2016 18:21
[2016-11-15] MEDS ORDERED: ROPIVACAINE 0.5 % 30 ML VIAL ONE (19:32)
[2016-11-15] MEDS ORDERED: MIDAZOLAM 1 MG/ML 2 ML INJ ONE (19:32)
[2016-11-15] MEDS ORDERED: FENTAnyl 50 MCG/ML VIAL ONE (19:49)
[2016-11-15] MEDS ORDERED: LIDOCAINE 1% (MDV) 20 ML INJ ONE (19:51)
[2016-11-15] MEDS ORDERED: LIDOCAINE 1% (MDV) 20 ML INJ INJ ONE (19:52)
[2016-11-15] MEDS ORDERED: POLYMYXIN/BACITRACIN 1L IRRIG IRR ONE (19:52)
[2016-11-15] MEDS ORDERED: LABETALOL HCL 20MG INJ ONE (20:00)
[2016-11-15] MEDS ORDERED: KETAMINE 500 MG INJ ONE (20:19)
[2016-11-15] MEDS ORDERED: HYDROmorphONE (0.2 MG/ML) 10ML SYG IV ONE (20:37)
--- NOTE | 2016-11-15 20:58 | PN ---
Date/Time of Note Date/Time of Note DATE: 11/15/16 TIME: 20:57 Assessment/Plan VTE Prophylaxis VTE Prophylaxis Intervention: other Lines/Catheters IV Catheter Type (from [facility]): Saline Lock Assessment/Plan Chief Complaint/Hosp Course 1. Cellulitis left foot,ABSCESS 2. Anemia 3. Hypertension 4. DM type II, uncontrolled 5. CKD, GFR 56 ml/min 6. Obesity 7. S/p cardiac angioplasty 3 vessels 2003 PLAN PER PODIATRY antibiotic Problems: Subjective 24 Hr Interval Summary Subjective hx not possible: other (surgery today) Exam/Review of Systems Vital Signs Vitals Vital Signs Date Time Temp Pulse Resp B/P Pulse Ox O2 Delivery O2 Flow Rate FiO2 11/15/16 20:28 75 18 127/70 98 Room Air 11/15/16 20:18 98.2 Intake and Output 11/14/16 11/14/16 11/15/16 15:00 23:00 07:00 Intake Total 250 ml 900 ml 360 ml Balance 250 ml 900 ml 360 ml Exam Respiratory: clear to auscultation Cardiovascular: regular rate and rhythm Gastrointestinal: soft Results Result Diagram: 11/14/16 0535 11/14/16 0535 Results 24 hrs Laboratory Tests Test 11/15/16 03:54 11/15/16 07:50 11/15/16 12:00 11/15/16 17:15 Vancomycin Level Trough 12.9 Bedside Glucose 151 160 127 Medications Medications Current Medications Aspirin (Halfprin) 81 mg DAILY PO Last administered on 11/15/16 08:46; Admin Dose 81 MG; Start 11/13/16 at 09:00 Pantoprazole (Protonix Tab) 40 mg DAILY@06 PO Last administered on 11/15/16 05 :26; Admin Dose 40 MG; Start 11/13/16 at 06:00 Acetaminophen (Tylenol Tab) 650 mg Q6H PRN PO PAIN AND OR ELEVATED TEMP Last administered on 11/14/16 20:53; Admin Dose 650 MG; Start 11/12/16 at 21:30 Enoxaparin Sodium (Lovenox) 40 mg DAILY SC Last administered on 11/15/16 09:27 ; Admin Dose 40 MG; Start 11/13/16 at 09:00 Morphine Sulfate (morphine) 2 mg Q4H PRN IV PAIN Last administered on 11/13/16 18:41; Admin Dose 2 MG; Start 11/12/16 at 21:30 Ondansetron HCl 4 mg 4 mg Q6H PRN IV NAUSEA AND/OR VOMITING; Start 11/12/16 at 21:30 Ceftriaxone Sodium (Rocephin) 50 ml @ 100 mls/hr Q24H IVPB Last administered on 11/14/16 20:46; Admin Dose 100 MLS/HR; Start 11/12/16 at 21:30 Diagnostic Test (Pha) (Accu-Chek) 1 ea 02 XX Last administered on 11/13/16 02: 00; Admin Dose 1 EA; Start 11/13/16 at 02:00 Miscellaneous Information 1 ea NOTE XX ; Start 11/12/16 at 22:00 Glucose (Glutose) 15 gm Q15M PRN PO DECREASED GLUCOSE; Start 11/12/16 at 22:00 Glucose (Glutose) 22.5 gm Q15M PRN PO DECREASED GLUCOSE; Start 11/12/16 at 22:00 Dextrose (D50w Syringe) 25 ml Q15M PRN IV DECREASED GLUCOSE; Start 11/12/16 at 22:00 Dextrose (D50w Syringe) 50 ml Q15M PRN IV DECREASED GLUCOSE; Start 11/12/16 at 22:00 Glucagon (Glucagen) 1 mg Q15M PRN IM DECREASED GLUCOSE; Start 11/12/16 at 22:00 Glucose (Glutose) 15 gm Q15M PRN BUCCAL DECREASED GLUCOSE; Start 11/12/16 at 22: 00 Linagliptin 5 mg 5 mg DAILY PO Last administered on 11/15/16 08:47; Admin Dose 5 MG; Start 11/13/16 at 12:30 Vancomycin HCl (Vancocin) 250 ml @ 125 mls/hr Q12H IVPB Last administered on 17:20; Admin Dose 125 MLS/HR; Start 11/14/16 at 05:00 Metoprolol Succinate (Toprol Xl) 100 mg DAILY PO Last administered on 08:47; Admin Dose 100 MG; Start 11/14/16 at 09:00 Insulin Glargine (Lantus) 20 unit DAILY@20 SC Last administered on 11/14/16 20: 44; Admin Dose 20 UNIT; Start 11/14/16 at 20:00 DENY VELASQUEZ MD Nov 15, 2016 20:57
[2016-11-15] MEDS ORDERED: HYDROmorphONE (0.2 MG/ML) 10ML SYG IV PRN ×2 (21:00)
[2016-11-15] MEDS ORDERED: DIPHENHYDRAMINE 50 MG INJ IV PRN (21:00)
[2016-11-15] MEDS ORDERED: ONDANSETRON 4 MG INJ IV PRN (21:00)
[2016-11-15] MEDS ORDERED: LABETALOL HCL 20MG INJ IV PRN (21:00)
[2016-11-15] MEDS ORDERED: MEPERIDINE 25 MG INJ IV PRN (21:00)
[2016-11-15] MEDS ORDERED: hydrALAzine 20 MG INJ IV PRN (21:00)
[2016-11-15] MEDS: CEFTRIAXONE 1 GM/50 ML (PMX) 50 ML IVPB SCH (21:38)
[2016-11-15] MEDS: INSULIN GLARGINE [LANtus] 3 ML PEN SC SCH (21:40)
--- NOTE | 2016-11-15 21:52 | RADRPT ---
PROCEDURE: XR Left Foot. CLINICAL INDICATION: Left foot pain. Postop. TECHNIQUE: Three views. Frontal, lateral, and oblique. COMPARISON: None. FINDINGS: There is no fracture or dislocation. There is soft tissue swelling overlying the metatarsals. Articular surfaces are intact. There is no lytic or blastic lesion. There is no radiopaque foreign body. IMPRESSION: 1. Soft tissue swelling overlying the metatarsals. 2. Otherwise unremarkable images of the left foot. RPTAT: QQ .Colton Ansari MD, MD Date Time Electronically viewed and signed by .Colton Ansari MD, on 11/15/2016 21:51 .R/
--- NOTE | 2016-11-15 21:52 | OPR ---
Date/Time of Note Date/Time of Note DATE: 11/15/16 TIME: 20:15 Operative Report Procedure Date: Nov 15, 2016 Preoperative Diagnosis left foot abscess left foot cellulitis s/p puncture wound to the left foot Postoperative Diagnosis same Operation Performed Incision and drainage of left foot abscess with cellulitis Surgeon: RAMA ROSSI DPM Anesthesia: MAC Estimated Blood Loss: minimal Specimens wound culture of the left foot Complications: None Pt Condition Post Procedure: stable Disposition: PACU Indications Risks and complications of this type of surgery was discussed with patient in great detail. Risks and complications discussed include, but are not limited to , post operative infection, post operative pain, chronic pain and disability, gait disturbance, non union, delayed union, mal union of bone, failure of surgery to correct the problem, need for additional surgical procedures, DVT, limb loss and loss of life. Patient understands the above discussion and agrees to the procedure. An informed consent was obtained, signed and placed in the chart. No guarantee or warrantee was given or implied as to the outcome of the procedure, either in verbal or written form. Operative\Procedure Findings Left foot abscess with cellulitis. Procedure Description Patient was seen in the pre operative area. Proposed surgery was discussed with patient in great detail. Risks and complications were discussed in detail. An informed consent was obtained, signed and placed in the chart. The patient was then taken to the operating room and was placed on the operating table in the supine position. The patient was placed under general anesthesia. The anesthesiologist administered a left popliteal block. The left lower extremity was then scrubbed, prepped and draped in the usual aseptic manner. A time-out was called by the circulating nurse. Attention was directed to the left foot. Large abscess with cellulitis of the left foot noted on the plantar medial and distal left foot. Using a #10 blade, an incision was made in the center of the abscess. Jose C purulent drainage noted. This drainage was cultured. A second small wound was explored and was found to communicate with the abscess. Using sharp curette, the wound was sharply debrided to bleeding wound. Next, the area was flushed with copious amounts of sterile normal saline using pulse irrigation. Next, the wound was also irrigated with PB irrigation. Post operative injection was done using 10cc of 1% Lidocaine plain. Next, sterile dressing was applied to the left foot. RAMA ROSSI DPM Nov 15, 2016 20:25
[2016-11-16] MEDS: ACCU-CHEK XX SCH (02:00)
[2016-11-16 02:32] VITALS: BP 119/68; RESP 20
[2016-11-16] MEDS: VANCOMYCIN 1 GM in NS 250 ML IVPB SCH (05:34)
[2016-11-16] MEDS: PANTOPRAZOLE (EC) 40 MG TAB PO SCH (05:34)
[2016-11-16 05:44] LABS: ADD SCAN DIFF NO
[2016-11-16 05:45] LABS: BASOPHILS % 0.3 % (0.0-2.0); EOSINOPHILS # 0.2 10^3/ul (0.0-0.5); EOSINOPHILS % 2.2 % (0.0-7.0); HEMATOCRIT 34.8 % (42.0-52.0); HEMOGLOBIN 11.5 g/dl (14.0-18.0); LYMPHOCYTES # 0.8 10^3/ul (0.8-2.9); LYMPHOCYTES % 11.2 % (15.0-51.0); MEAN CORPUSCULAR HEMOGLOBIN 28.8 pg (29.0-33.0); MEAN CORPUSCULAR VOLUME 87.2 fl (82.0-101.0); MEAN PLATELET VOLUME 10.2 fl (7.4-10.4); MONOCYTE # 0.5 10^3/ul (0.3-0.9); MONOCYTES % 7.2 % (0.0-11.0); NEUTROPHIL # 5.2 10^3/ul (1.6-7.5); NEUTROPHILS % 78.2 % (39.0-77.0); PLATELET COUNT 208 10^3/UL (140-415); RED BLOOD COUNT 3.99 10^6/ul (4.70-6.10); RED CELL DISTRIBUTION WIDTH 11.8 % (11.5-14.5); WHITE BLOOD COUNT 6.7 10^3/ul (4.8-10.8)
[2016-11-16 06:25] LABS: ALBUMIN 3.9 g/dl (3.3-4.9); ALBUMIN/GLOBULIN RATIO 1.3; BILIRUBIN,INDIRECT 0.1 mg/dl (0-1.1); BILIRUBIN,TOTAL 0.1 mg/dl (0.2-1.3); CALCIUM 9.2 mg/dl (8.4-10.2); CREATININE 1.15 mg/dl (0.61-1.24); POTASSIUM 4.5 mmol/L (3.5-5.1); TOTAL PROTEIN 6.9 g/dl (6.1-8.1)
[2016-11-16 07:53] VITALS: BP 123/59; RESP 18
[2016-11-16] MEDS: metFORMIN 500 MG TAB PO SCH ×2 (08:04→17:13)
[2016-11-16] MEDS: ASPIRIN (EC) 81 MG TAB PO SCH (08:10)
[2016-11-16] MEDS: LINAGLIPTIN 5 MG TABLET PO SCH (08:10)
[2016-11-16] MEDS: METOPROLOL (XL) 100 MG TAB PO SCH (08:10)
[2016-11-16] MEDS: ENOXAPARIN 40 MG/0.4 ML SYG SC SCH (08:30)
[2016-11-16] MEDS: INSULIN ASPART [NOVOLOG] 3 ML PEN SC SCH ×7 (08:30→20:49)
--- NOTE | 2016-11-16 13:41 | CONS ---
Date/Time of Note Date/Time of Note DATE: 11/16/16 TIME: 13:39 Assessment/Plan Assessment/Plan Chief Complaint/Hosp Course No acute changes overnight, patient is alert, looks comfortable, no fevers MRI of the left foot revealed fluid-filled mass along the plantar aspect of the left forefoot. No evidence of osteomyelitis Antibiotics: Vancomycin Rocephin. Microbiology: Left foot drainage growing methicillin sensitive staph aureus Physical examination: Obese, well-developed elderly man who is alert in no distress. Head atraumatic, normocephalic. Neck is supple. Chest rise symmetrical breath sounds clear bilaterally. S1-S2. Abdomen soft, bowel tones present. Extremities with left foot Renzo wrap intact Assessment: 1. Left foot cellulitis with abscess, no evidence of osteomyelitis per MRI===> status post debridement with abscess drainage 2. Systemic inflammatory response syndrome 3. Diabetes with diabetic neuropathy 4. Hypertension 5. Chronic kidney disease Plan: Remains stable, change antibiotics to clindamycin, out the probiotics continue present care, follow podiatry recommendations Discussed with staff and patient Problems: Consultation Date/Type/Reason Admit Date/Time Nov 12, 2016 at 19:40 Type of Consultation: id Exam/Review of Systems Vital Signs Vitals Vital Signs Date Time Temp Pulse Resp B/P Pulse Ox O2 Delivery O2 Flow Rate FiO2 11/16/16 07:53 98.3 83 18 123/59 97 11/15/16 23:00 Room Air Intake and Output 11/15/16 11/15/16 11/16/16 15:00 23:00 07:00 Intake Total 250 ml 1025 ml 1625 ml Output Total 20 ml Balance 250 ml 1005 ml 1625 ml Results Result Diagram: 11/16/16 0501 11/16/16 0501 Results 24 hrs Laboratory Tests Test 11/15/16 17:15 11/15/16 21:36 11/16/16 05:01 11/16/16 08:11 Bedside Glucose 127 152 329 H White Blood Count 6.7 # Red Blood Count 3.99 L Hemoglobin 11.5 L Hematocrit 34.8 L Mean Corpuscular Volume 87.2 Mean Corpuscular Hemoglobin 28.8 L Mean Corpuscular Hemoglobin Concent 33.0 Red Cell Distribution Width 11.8 Platelet Count 208 Mean Platelet Volume 10.2 Neutrophils % 78.2 H Lymphocytes % 11.2 L Monocytes % 7.2 Eosinophils % 2.2 Basophils % 0.3 Nucleated Red Blood Cells % 0.0 Neutrophils # 5.2 Lymphocytes # 0.8 Monocytes # 0.5 Eosinophils # 0.2 Basophils # 0.0 Nucleated Red Blood Cells # 0.0 Sodium Level 138 Potassium Level 4.5 Chloride Level 95 L Carbon Dioxide Level 26 Anion Gap 22 H Blood Urea Nitrogen 27 H Creatinine 1.15 Glucose Level 365 H Calcium Level 9.2 Total Bilirubin 0.1 L Direct Bilirubin 0.00 Indirect Bilirubin 0.1 Aspartate Amino Transf (AST/SGOT) 15 Alanine Aminotransferase (ALT/SGPT) 19 Alkaline Phosphatase 57 Total Protein 6.9 Albumin 3.9 Globulin 3.00 Albumin/Globulin Ratio 1.30 Test 11/16/16 11:49 Bedside Glucose 253 H Medications Medications Current Medications Aspirin (Halfprin) 81 mg DAILY PO Last administered on 11/16/16 08:10; Admin Dose 81 MG; Start 11/13/16 at 09:00 Pantoprazole (Protonix Tab) 40 mg DAILY@06 PO Last administered on 11/16/16 05 :34; Admin Dose 40 MG; Start 11/13/16 at 06:00 Acetaminophen (Tylenol Tab) 650 mg Q6H PRN PO PAIN AND OR ELEVATED TEMP Last administered on 11/14/16 20:53; Admin Dose 650 MG; Start 11/12/16 at 21:30 Enoxaparin Sodium (Lovenox) 40 mg DAILY SC Last administered on 11/16/16 08:30 ; Admin Dose 40 MG; Start 11/13/16 at 09:00 Morphine Sulfate (morphine) 2 mg Q4H PRN IV PAIN Last administered on 11/13/16 18:41; Admin Dose 2 MG; Start 11/12/16 at 21:30 Ondansetron HCl 4 mg 4 mg Q6H PRN IV NAUSEA AND/OR VOMITING; Start 11/12/16 at 21:30 Ceftriaxone Sodium (Rocephin) 50 ml @ 100 mls/hr Q24H IVPB Last administered on 11/15/16 21:38; Admin Dose 100 MLS/HR; Start 11/12/16 at 21:30 Diagnostic Test (Pha) (Accu-Chek) 1 ea 02 XX Last administered on 11/13/16 02: 00; Admin Dose 1 EA; Start 11/13/16 at 02:00 Miscellaneous Information 1 ea NOTE XX ; Start 11/12/16 at 22:00 Glucose (Glutose) 15 gm Q15M PRN PO DECREASED GLUCOSE; Start 11/12/16 at 22:00 Glucose (Glutose) 22.5 gm Q15M PRN PO DECREASED GLUCOSE; Start 11/12/16 at 22:00 Dextrose (D50w Syringe) 25 ml Q15M PRN IV DECREASED GLUCOSE; Start 11/12/16 at 22:00 Dextrose (D50w Syringe) 50 ml Q15M PRN IV DECREASED GLUCOSE; Start 11/12/16 at 22:00 Glucagon (Glucagen) 1 mg Q15M PRN IM DECREASED GLUCOSE; Start 11/12/16 at 22:00 Glucose (Glutose) 15 gm Q15M PRN BUCCAL DECREASED GLUCOSE; Start 11/12/16 at 22: 00 Linagliptin 5 mg 5 mg DAILY PO Last administered on 11/16/16 08:10; Admin Dose 5 MG; Start 11/13/16 at 12:30 Vancomycin HCl (Vancocin) 250 ml @ 125 mls/hr Q12H IVPB Last administered on 05:34; Admin Dose 125 MLS/HR; Start 11/14/16 at 05:00 Metoprolol Succinate (Toprol Xl) 100 mg DAILY PO Last administered on 08:10; Admin Dose 100 MG; Start 11/14/16 at 09:00 Insulin Glargine (Lantus) 25 unit DAILY@20 SC ; Start 11/16/16 at 20:00 SENG DUKE NP Nov 16, 2016 13:40
[2016-11-16] MEDS: CLINDAMYCIN 600 MG/D5W (PMX) 50 ML IVPB SCH ×2 (17:14→23:50)
[2016-11-16 19:33] VITALS: BP 119/75; RESP 20
[2016-11-16] MEDS: L ACIDOPHIL/B LACTIS/B LONGUM CAPSULE PO SCH (20:37)
--- NOTE | 2016-11-16 20:42 | PN ---
Date/Time of Note Date/Time of Note DATE: 11/16/16 TIME: 20:41 Assessment/Plan VTE Prophylaxis VTE Prophylaxis Intervention: other Lines/Catheters [facility] Saline Lock Assessment/Plan Chief Complaint/Hosp Course 1. Cellulitis left foot,ABSCESS 2. Anemia 3. Hypertension 4. DM type II, uncontrolled 5. CKD, GFR 56 ml/min 6. Obesity 7. S/p cardiac angioplasty 3 vessels 2003 8 s/p i and d PLAN PER PODIATRY antibiotic Problems: Subjective 24 Hr Interval Summary Subjective hx not possible: other (s/p i and d) Exam/Review of Systems Vital Signs Vitals Vital Signs Date Time Temp Pulse Resp B/P Pulse Ox O2 Delivery O2 Flow Rate FiO2 11/16/16 19:33 98.0 82 20 119/75 94 11/15/16 23:00 Room Air Intake and Output 11/15/16 11/15/16 11/16/16 15:00 23:00 07:00 Intake Total 250 ml 1025 ml 1625 ml Output Total 20 ml Balance 250 ml 1005 ml 1625 ml Exam Neck: supple Respiratory: clear to auscultation Cardiovascular: regular rate and rhythm Gastrointestinal: soft Musculoskeletal: nl extremities to inspection Results Result Diagram: 11/16/16 0501 11/16/16 0501 Results 24 hrs Laboratory Tests Test 11/15/16 21:36 11/16/16 05:01 11/16/16 08:11 11/16/16 11:49 Bedside Glucose 152 329 H 253 H White Blood Count 6.7 # Red Blood Count 3.99 L Hemoglobin 11.5 L Hematocrit 34.8 L Mean Corpuscular Volume 87.2 Mean Corpuscular Hemoglobin 28.8 L Mean Corpuscular Hemoglobin Concent 33.0 Red Cell Distribution Width 11.8 Platelet Count 208 Mean Platelet Volume 10.2 Neutrophils % 78.2 H Lymphocytes % 11.2 L Monocytes % 7.2 Eosinophils % 2.2 Basophils % 0.3 Nucleated Red Blood Cells % 0.0 Neutrophils # 5.2 Lymphocytes # 0.8 Monocytes # 0.5 Eosinophils # 0.2 Basophils # 0.0 Nucleated Red Blood Cells # 0.0 Sodium Level 138 Potassium Level 4.5 Chloride Level 95 L Carbon Dioxide Level 26 Anion Gap 22 H Blood Urea Nitrogen 27 H Creatinine 1.15 Glucose Level 365 H Calcium Level 9.2 Total Bilirubin 0.1 L Direct Bilirubin 0.00 Indirect Bilirubin 0.1 Aspartate Amino Transf (AST/SGOT) 15 Alanine Aminotransferase (ALT/SGPT) 19 Alkaline Phosphatase 57 Total Protein 6.9 Albumin 3.9 Globulin 3.00 Albumin/Globulin Ratio 1.30 Test 11/16/16 17:12 11/16/16 20:35 Bedside Glucose 115 75 Medications Medications Current Medications Aspirin (Halfprin) 81 mg DAILY PO Last administered on 11/16/16 08:10; Admin Dose 81 MG; Start 11/13/16 at 09:00 Pantoprazole (Protonix Tab) 40 mg DAILY@06 PO Last administered on 11/16/16 05 :34; Admin Dose 40 MG; Start 11/13/16 at 06:00 Acetaminophen (Tylenol Tab) 650 mg Q6H PRN PO PAIN AND OR ELEVATED TEMP Last administered on 11/14/16 20:53; Admin Dose 650 MG; Start 11/12/16 at 21:30 Enoxaparin Sodium (Lovenox) 40 mg DAILY SC Last administered on 11/16/16 08:30 ; Admin Dose 40 MG; Start 11/13/16 at 09:00 Morphine Sulfate (morphine) 2 mg Q4H PRN IV PAIN Last administered on 11/13/16 18:41; Admin Dose 2 MG; Start 11/12/16 at 21:30 Ondansetron HCl (Zofran Inj) 4 mg Q6H PRN IV NAUSEA AND/OR VOMITING; Start 11/12 at 21:30 Diagnostic Test (Pha) (Accu-Chek) 1 ea 02 XX Last administered on 11/13/16 02: 00; Admin Dose 1 EA; Start 11/13/16 at 02:00 Miscellaneous Information 1 ea NOTE XX ; Start 11/12/16 at 22:00 Glucose (Glutose) 15 gm Q15M PRN PO DECREASED GLUCOSE; Start 11/12/16 at 22:00 Glucose (Glutose) 22.5 gm Q15M PRN PO DECREASED GLUCOSE; Start 11/12/16 at 22:00 Dextrose (D50w Syringe) 25 ml Q15M PRN IV DECREASED GLUCOSE; Start 11/12/16 at 22:00 Dextrose (D50w Syringe) 50 ml Q15M PRN IV DECREASED GLUCOSE; Start 11/12/16 at 22:00 Glucagon (Glucagen) 1 mg Q15M PRN IM DECREASED GLUCOSE; Start 11/12/16 at 22:00 Glucose (Glutose) 15 gm Q15M PRN BUCCAL DECREASED GLUCOSE; Start 11/12/16 at 22: 00 Linagliptin (Tradjenta) 5 mg DAILY PO Last administered on 11/16/16 08:10; Admin Dose 5 MG; Start 11/13/16 at 12:30 Metoprolol Succinate (Toprol Xl) 100 mg DAILY PO Last administered on 08:10; Admin Dose 100 MG; Start 11/14/16 at 09:00 Insulin Glargine 25 unit 25 unit DAILY@20 SC ; Start 11/16/16 at 20:00 Clindamycin HCl/ Dextrose (Cleocin 600 Mg/ D5W (Pmx)) 50 ml @ 50 mls/hr Q6 IVPB Last administered on 11/16/16 17:14; Admin Dose 50 MLS/HR; Start 11/16/16 at 18:00 Lactobacillus Acidophilus (Florajen3 Capsule) 1 each BID PO ; Start 11/16/16 at 21:00 DENY VELASQUEZ MD Nov 16, 2016 20:42
[2016-11-16] MEDS: INSULIN GLARGINE [LANtus] 3 ML PEN SC SCH (20:49)
[2016-11-17] MEDS: ACCU-CHEK XX SCH (02:00)
[2016-11-17] MEDS: PANTOPRAZOLE (EC) 40 MG TAB PO SCH (05:29)
[2016-11-17] MEDS: CLINDAMYCIN 600 MG/D5W (PMX) 50 ML IVPB SCH ×4 (05:29→23:43)
[2016-11-17] MEDS: ACETAMINOPHEN 325 MG TAB PO PRN ×2 (05:35→23:50)
[2016-11-17 07:26] VITALS: BP 127/68; RESP 18
[2016-11-17] MEDS: ASPIRIN (EC) 81 MG TAB PO SCH (08:03)
[2016-11-17] MEDS: LINAGLIPTIN 5 MG TABLET PO SCH (08:03)
[2016-11-17] MEDS: METOPROLOL (XL) 100 MG TAB PO SCH (08:03)
[2016-11-17] MEDS: metFORMIN 500 MG TAB PO SCH ×2 (08:03→17:14)
[2016-11-17] MEDS: INSULIN ASPART [NOVOLOG] 3 ML PEN SC SCH ×7 (08:11→21:00)
[2016-11-17] MEDS: ENOXAPARIN 40 MG/0.4 ML SYG SC SCH (08:12)
[2016-11-17] MEDS: L ACIDOPHIL/B LACTIS/B LONGUM CAPSULE PO SCH ×2 (08:53→21:15)
--- NOTE | 2016-11-17 08:54 | CONS ---
Date/Time of Note Date/Time of Note DATE: 11/17/16 TIME: 08:54 Consultation Date/Type/Reason Admit Date/Time Nov 12, 2016 at 19:40 Respiratory: no complaints Cardiovascular: no complaints Musculoskeletal: restricted range of motion (left leg), swelling (left leg) Skin: other (FOOT PAIN+) Psychological: no complaints Past Medical History Medical History: coronary artery disease, high cholesterol, hypertension Past Surgical History Past Surgical Hx: coronary bypass surgery, other Social History Alcohol Use: rarely Smoking Status: Former smoker Drug Use: none Exam/Review of Systems Vital Signs Vitals Vital Signs Date Time Temp Pulse Resp B/P Pulse Ox O2 Delivery O2 Flow Rate FiO2 11/17/16 07:26 98.1 66 18 127/68 68 11/15/16 23:00 Room Air Intake and Output 11/16/16 11/16/16 11/17/16 15:00 23:00 07:00 Intake Total 1410 ml 340 ml Balance 1410 ml 340 ml Results Result Diagram: 11/16/16 0501 11/16/16 0501 Results 24 hrs Laboratory Tests Test 11/16/16 11:49 11/16/16 17:12 11/16/16 20:35 11/17/16 08:01 Bedside Glucose 253 H 115 75 212 Medications Medications Current Medications Aspirin (Halfprin) 81 mg DAILY PO Last administered on 11/17/16 08:03; Admin Dose 81 MG; Start 11/13/16 at 09:00 Pantoprazole (Protonix Tab) 40 mg DAILY@06 PO Last administered on 11/17/16 05 :29; Admin Dose 40 MG; Start 11/13/16 at 06:00 Acetaminophen (Tylenol Tab) 650 mg Q6H PRN PO PAIN AND OR ELEVATED TEMP Last administered on 11/17/16 05:35; Admin Dose 650 MG; Start 11/12/16 at 21:30 Enoxaparin Sodium (Lovenox) 40 mg DAILY SC Last administered on 11/17/16 08:12 ; Admin Dose 40 MG; Start 11/13/16 at 09:00 Morphine Sulfate (morphine) 2 mg Q4H PRN IV PAIN Last administered on 11/13/16 18:41; Admin Dose 2 MG; Start 11/12/16 at 21:30 Ondansetron HCl (Zofran Inj) 4 mg Q6H PRN IV NAUSEA AND/OR VOMITING; Start 11/12 at 21:30 Diagnostic Test (Pha) (Accu-Chek) 1 ea 02 XX Last administered on 11/13/16 02: 00; Admin Dose 1 EA; Start 11/13/16 at 02:00 Miscellaneous Information 1 ea NOTE XX ; Start 11/12/16 at 22:00 Glucose (Glutose) 15 gm Q15M PRN PO DECREASED GLUCOSE; Start 11/12/16 at 22:00 Glucose (Glutose) 22.5 gm Q15M PRN PO DECREASED GLUCOSE; Start 11/12/16 at 22:00 Dextrose (D50w Syringe) 25 ml Q15M PRN IV DECREASED GLUCOSE; Start 11/12/16 at 22:00 Dextrose (D50w Syringe) 50 ml Q15M PRN IV DECREASED GLUCOSE; Start 11/12/16 at 22:00 Glucagon (Glucagen) 1 mg Q15M PRN IM DECREASED GLUCOSE; Start 11/12/16 at 22:00 Glucose (Glutose) 15 gm Q15M PRN BUCCAL DECREASED GLUCOSE; Start 11/12/16 at 22: 00 Linagliptin (Tradjenta) 5 mg DAILY PO Last administered on 11/17/16 08:03; Admin Dose 5 MG; Start 11/13/16 at 12:30 Metoprolol Succinate (Toprol Xl) 100 mg DAILY PO Last administered on 08:03; Admin Dose 100 MG; Start 11/14/16 at 09:00 Insulin Glargine 25 unit 25 unit DAILY@20 SC Last administered on 11/16/16 20: 49; Admin Dose 25 UNIT; Start 11/16/16 at 20:00 Clindamycin HCl/ Dextrose (Cleocin 600 Mg/ D5W (Pmx)) 50 ml @ 50 mls/hr Q6 IVPB Last administered on 11/17/16 05:29; Admin Dose 50 MLS/HR; Start 11/16/16 at 18:00 Lactobacillus Acidophilus (Florajen3 Capsule) 1 each BID PO Last administered on 11/16/16 20:37; Admin Dose 1 EACH; Start 11/16/16 at 21:00 CHARAN MAGAÑA MD Nov 17, 2016 08:54
--- NOTE | 2016-11-17 11:39 | RADRPT ---
PROCEDURE: US Lower extremity Venous. CLINICAL INDICATION: Vein mapping, TECHNIQUE: Multiple sonographic images of the bilateral lower extremity superficial venous system was obtained utilizing grayscale, color-flow, compressive sonography and doppler imaging with augmen tation. The images were reviewed on a PACS workstation. COMPARISON: None. FINDINGS: Measurements from the great saphenous veins were obtained. Right great saphenous vein was divided into eight segments with the first segment being more proxima l in the 8th segment more distal. Measurements were obtained as below in mm. 1. 5.2 mm 2. 2.7 mm 3. 2.3 mm 4. 2.2 mm 5. 1.9 mm 6. 1.5 mm 7. 1.3 mm 8. 0.9 mm Right LSV in the calf: Proximal: 2.3 mm Mid: 1.7 mm Distal: 1.3 mm Left great saphenous vein was divided into eight segments with the first segment being more proximal in the 8th segment more distal. Measurements were obtained as below in mm. 1. 4.5 mm 2. 4.8 mm 3. 4.6 mm 4. 4.5 mm 5. 2.3 mm 6. 1.9 mm 7. 1.5 mm 8. 1.3 mm . Left LSV in the calf: Proximal: 2.3 mm Mid: 1.9 mm Distal: 1.7 mm IMPRESSION: Bilateral greater saphenous vein mapping as described.. RPTAT: AA .Dawson Enriquez MD, MD Date Time Electronically viewed and signed by .Dawson Enriquez MD, MD on 11/17/2016 11:39 .S/
--- NOTE | 2016-11-17 12:03 | CONS ---
Date/Time of Note Date/Time of Note DATE: 11/17/16 TIME: 12:02 Assessment/Plan Assessment/Plan Chief Complaint/Hosp Course No acute changes overnight, patient is alert, looks comfortable, no fevers MRI of the left foot revealed fluid-filled mass along the plantar aspect of the left forefoot. No evidence of osteomyelitis Antibiotics: Clindamycin. Microbiology: Left foot drainage growing methicillin sensitive staph aureus, negative for anaerobes Physical examination: Obese, well-developed elderly man who is alert in no distress. Head atraumatic, normocephalic. Neck is supple. Chest rise symmetrical breath sounds clear bilaterally. S1-S2. Abdomen soft, bowel tones present. Extremities with left foot Rnezo wrap intact Assessment: 1. Left foot cellulitis with abscess, no evidence of osteomyelitis per MRI===> status post debridement with abscess drainage 2. Systemic inflammatory response syndrome 3. Diabetes with diabetic neuropathy 4. Hypertension 5. Chronic kidney disease Plan: Remains stable, continue antibiotics and probiotics, follow podiatry and vascular surgery recommendations Discussed with staff Problems: Consultation Date/Type/Reason Admit Date/Time Nov 12, 2016 at 19:40 Type of Consultation: id Exam/Review of Systems Vital Signs Vitals Vital Signs Date Time Temp Pulse Resp B/P Pulse Ox O2 Delivery O2 Flow Rate FiO2 11/17/16 07:26 98.1 66 18 127/68 68 11/15/16 23:00 Room Air Intake and Output 11/16/16 11/16/16 11/17/16 15:00 23:00 07:00 Intake Total 1410 ml 340 ml Balance 1410 ml 340 ml Results Result Diagram: 11/16/16 0501 11/16/16 0501 Results 24 hrs Laboratory Tests Test 11/16/16 17:12 11/16/16 20:35 11/17/16 08:01 Bedside Glucose 115 75 212 Medications Medications Current Medications Aspirin (Halfprin) 81 mg DAILY PO Last administered on 11/17/16 08:03; Admin Dose 81 MG; Start 11/13/16 at 09:00 Pantoprazole (Protonix Tab) 40 mg DAILY@06 PO Last administered on 11/17/16 05 :29; Admin Dose 40 MG; Start 11/13/16 at 06:00 Acetaminophen (Tylenol Tab) 650 mg Q6H PRN PO PAIN AND OR ELEVATED TEMP Last administered on 11/17/16 05:35; Admin Dose 650 MG; Start 11/12/16 at 21:30 Enoxaparin Sodium (Lovenox) 40 mg DAILY SC Last administered on 11/17/16 08:12 ; Admin Dose 40 MG; Start 11/13/16 at 09:00 Morphine Sulfate (morphine) 2 mg Q4H PRN IV PAIN Last administered on 11/13/16 18:41; Admin Dose 2 MG; Start 11/12/16 at 21:30 Ondansetron HCl (Zofran Inj) 4 mg Q6H PRN IV NAUSEA AND/OR VOMITING; Start 11/12 at 21:30 Diagnostic Test (Pha) (Accu-Chek) 1 ea 02 XX Last administered on 11/13/16 02: 00; Admin Dose 1 EA; Start 11/13/16 at 02:00 Miscellaneous Information 1 ea NOTE XX ; Start 11/12/16 at 22:00 Glucose (Glutose) 15 gm Q15M PRN PO DECREASED GLUCOSE; Start 11/12/16 at 22:00 Glucose (Glutose) 22.5 gm Q15M PRN PO DECREASED GLUCOSE; Start 11/12/16 at 22:00 Dextrose (D50w Syringe) 25 ml Q15M PRN IV DECREASED GLUCOSE; Start 11/12/16 at 22:00 Dextrose (D50w Syringe) 50 ml Q15M PRN IV DECREASED GLUCOSE; Start 11/12/16 at 22:00 Glucagon (Glucagen) 1 mg Q15M PRN IM DECREASED GLUCOSE; Start 11/12/16 at 22:00 Glucose (Glutose) 15 gm Q15M PRN BUCCAL DECREASED GLUCOSE; Start 11/12/16 at 22: 00 Linagliptin (Tradjenta) 5 mg DAILY PO Last administered on 11/17/16 08:03; Admin Dose 5 MG; Start 11/13/16 at 12:30 Metoprolol Succinate (Toprol Xl) 100 mg DAILY PO Last administered on 08:03; Admin Dose 100 MG; Start 11/14/16 at 09:00 Insulin Glargine 25 unit 25 unit DAILY@20 SC Last administered on 11/16/16 20: 49; Admin Dose 25 UNIT; Start 11/16/16 at 20:00 Clindamycin HCl/ Dextrose (Cleocin 600 Mg/ D5W (Pmx)) 50 ml @ 50 mls/hr Q6 IVPB Last administered on 11/17/16 05:29; Admin Dose 50 MLS/HR; Start 11/16/16 at 18:00 Lactobacillus Acidophilus (Florajen3 Capsule) 1 each BID PO Last administered on 11/17/16 08:53; Admin Dose 1 EACH; Start 11/16/16 at 21:00 SENG DUKE NP Nov 17, 2016 12:03
--- NOTE | 2016-11-17 14:02 | RADRPT ---
PROCEDURE: US bilateral lower extremity arteries. CLINICAL INDICATION: Bilateral leg pain. Claudication that interferes significantly with the meliton ent's lifestyle. TECHNIQUE: Multiple longitudinal and transverse images of the bilateral lower extremity arteries w ere obtained with oliveros scale, pulsed Doppler, and color Doppler imaging. COMPARISON: No prior studies are available for comparison. FINDINGS: Right PRE PRESS PROOFER:87 cm/sec PSFA:73 cm/sec MSFA:48 cm/sec DSFA:50 cm/sec POP:44 cm/sec WIRELINE SUPERVISOR:71 cm/sec DPA:46 cm/sec Left PRE PRESS PROOFER:79 cm/sec PSFA:67 cm/sec MSFA:83 cm/sec DSFA:69 cm/sec POP:52 cm/sec WIRELINE SUPERVISOR:60 cm/sec DPA:75 cm/sec On the right side, there is normal triphasic flow throughout the arterial system. On the left side, there is normal triphasic flow in the femoral and popliteal systems. Biphasic yvan w is present in the calf arteries. IMPRESSION: 1. Possible stenosis in the left calf arteries or distal left popliteal artery. 2. Otherwise unremarkable study. RPTAT: QQ .Colton Ansari MD, MD Date Time Electronically viewed and signed by .Colton Ansari MD, on 11/17/2016 14:01 .R/
--- NOTE | 2016-11-17 19:36 | PN ---
Date/Time of Note Date/Time of Note DATE: 11/17/16 TIME: 19:33 Assessment/Plan Lines/Catheters IV [facility]from [facility] Saline Lock Assessment/Plan Problems: (1) Abscess of left foot (2) Cellulitis of left foot (3) S/P angioplasties (4) Former cigarette smoker Assessment/Plan The cellulitis is apparently resolved and the abscess has been drained. Patient 's prognosis has improved. I would like him to continue nonweightbearing on the left foot for now. Dressing was removed and a new dressing was applied to the left foot. As far as foot and ankle surgery is concerned, patient may be discharged home. Patient will follow up next week in the amputation prevention center. Thank you again for involving me in the care of this patient. Subjective 24 Hr Interval Summary Postop day 2, status post incision and drainage of the left foot. Patient denies overnight adverse events. Reports that his pain is no longer present in the left foot. Patient denies fever and chills and denies chest pain or shortness of breath. Patient has remained nonweightbearing as directed. Constitutional: BM, ambulates, flatus, improved, no complaints, urine output Pain Control: well controlled Exam/Review of Systems Vital Signs Vitals Vital Signs Date Time Temp Pulse Resp B/P Pulse Ox O2 Delivery O2 Flow Rate FiO2 11/17/16 07:26 98.1 66 18 127/68 68 11/15/16 23:00 Room Air Intake and Output 11/16/16 11/16/16 11/17/16 15:00 23:00 07:00 Intake Total 1410 ml 340 ml Balance 1410 ml 340 ml Exam Free Text/Dictation Morbidly obese male in no acute distress. Bandages were removed from the left foot. The foot appears to have improved significantly with significant reduction in edema. The erythema is practically gone and there is no drainage of any kind noted. The area is nontender to palpation according to the patient. Labs reviewed. Imaging reviewed. Results Result Diagram: 11/16/16 0501 11/16/16 0501 RAMA ROSSI DPM Nov 17, 2016 19:36
[2016-11-17 20:00] VITALS: BP 128/70; PULSE 72; RESP 18
--- NOTE | 2016-11-17 20:38 | PN ---
Date/Time of Note Date/Time of Note DATE: 11/17/16 TIME: 20:37 Assessment/Plan VTE Prophylaxis VTE Prophylaxis Intervention: other Lines/Catheters IV Catheter Type (from Nrsg): Saline Lock Assessment/Plan Chief Complaint/Hosp Course 1. Cellulitis left foot,ABSCESS 2. Anemia 3. Hypertension 4. DM type II, uncontrolled 5. CKD, GFR 56 ml/min 6. Obesity 7. S/p cardiac angioplasty 3 vessels 2004 8 s/p i and d PLAN PER PODIATRY and surgery antibiotic Problems: Subjective 24 Hr Interval Summary Cardiovascular: no complaints Gastrointestinal: no complaints Exam/Review of Systems Vital Signs Vitals Vital Signs Date Time Temp Pulse Resp B/P Pulse Ox O2 Delivery O2 Flow Rate FiO2 11/17/16 07:26 98.1 66 18 127/68 68 11/15/16 23:00 Room Air Intake and Output 11/16/16 11/16/16 11/17/16 15:00 23:00 07:00 Intake Total 1410 ml 340 ml Balance 1410 ml 340 ml Exam Respiratory: clear to auscultation Cardiovascular: regular rate and rhythm Gastrointestinal: soft Musculoskeletal: nl extremities to inspection Extremities: edema (+) Results Result Diagram: 11/16/16 0501 11/16/16 0501 Results 24 hrs Laboratory Tests Test 11/17/16 08:01 11/17/16 12:11 11/17/16 17:14 Bedside Glucose 212 188 128 Medications Medications Current Medications Aspirin (Halfprin) 81 mg DAILY PO Last administered on 11/17/16 08:03; Admin Dose 81 MG; Start 11/13/16 at 09:00 Pantoprazole (Protonix Tab) 40 mg DAILY@06 PO Last administered on 11/17/16 05 :29; Admin Dose 40 MG; Start 11/13/16 at 06:00 Acetaminophen (Tylenol Tab) 650 mg Q6H PRN PO PAIN AND OR ELEVATED TEMP Last administered on 11/17/16 05:35; Admin Dose 650 MG; Start 11/12/16 at 21:30 Enoxaparin Sodium (Lovenox) 40 mg DAILY SC Last administered on 11/17/16 08:12 ; Admin Dose 40 MG; Start 11/13/16 at 09:00 Morphine Sulfate (morphine) 2 mg Q4H PRN IV PAIN Last administered on 11/13/16 18:41; Admin Dose 2 MG; Start 11/12/16 at 21:30 Ondansetron HCl (Zofran Inj) 4 mg Q6H PRN IV NAUSEA AND/OR VOMITING; Start 11/12 at 21:30 Diagnostic Test (Pha) (Accu-Chek) 1 ea 02 XX Last administered on 11/13/16 02: 00; Admin Dose 1 EA; Start 11/13/16 at 02:00 Miscellaneous Information 1 ea NOTE XX ; Start 11/12/16 at 22:00 Glucose (Glutose) 15 gm Q15M PRN PO DECREASED GLUCOSE; Start 11/12/16 at 22:00 Glucose (Glutose) 22.5 gm Q15M PRN PO DECREASED GLUCOSE; Start 11/12/16 at 22:00 Dextrose (D50w Syringe) 25 ml Q15M PRN IV DECREASED GLUCOSE; Start 11/12/16 at 22:00 Dextrose (D50w Syringe) 50 ml Q15M PRN IV DECREASED GLUCOSE; Start 11/12/16 at 22:00 Glucagon (Glucagen) 1 mg Q15M PRN IM DECREASED GLUCOSE; Start 11/12/16 at 22:00 Glucose (Glutose) 15 gm Q15M PRN BUCCAL DECREASED GLUCOSE; Start 11/12/16 at 22: 00 Linagliptin (Tradjenta) 5 mg DAILY PO Last administered on 11/17/16 08:03; Admin Dose 5 MG; Start 11/13/16 at 12:30 Metoprolol Succinate (Toprol Xl) 100 mg DAILY PO Last administered on 08:03; Admin Dose 100 MG; Start 11/14/16 at 09:00 Insulin Glargine 25 unit 25 unit DAILY@20 SC Last administered on 11/16/16 20: 49; Admin Dose 25 UNIT; Start 11/16/16 at 20:00 Clindamycin HCl/ Dextrose (Cleocin 600 Mg/ D5W (Pmx)) 50 ml @ 50 mls/hr Q6 IVPB Last administered on 11/17/16 17:18; Admin Dose 50 MLS/HR; Start 11/16/16 at 18:00 Lactobacillus Acidophilus (Florajen3 Capsule) 1 each BID PO Last administered on 11/17/16 08:53; Admin Dose 1 EACH; Start 7/11/17 at 21:00 DENY VELASQUEZ MD Nov 17, 2016 20:38
[2016-11-17] MEDS: INSULIN GLARGINE [LANtus] 3 ML PEN SC SCH (21:17)
[2016-11-18 02:00] VITALS: BP 144/70; PULSE 68; RESP 19
[2016-11-18] MEDS: ACCU-CHEK XX SCH (02:00)
[2016-11-18] MEDS: PANTOPRAZOLE (EC) 40 MG TAB PO SCH (05:48)
[2016-11-18] MEDS: CLINDAMYCIN 600 MG/D5W (PMX) 50 ML IVPB SCH ×3 (05:49→17:16)
[2016-11-18] MEDS: metFORMIN 500 MG TAB PO SCH ×2 (07:56→17:16)
[2016-11-18] MEDS: METOPROLOL (XL) 100 MG TAB PO SCH (07:56)
[2016-11-18] MEDS: L ACIDOPHIL/B LACTIS/B LONGUM CAPSULE PO SCH (07:56)
[2016-11-18] MEDS: ASPIRIN (EC) 81 MG TAB PO SCH (07:56)
[2016-11-18] MEDS: LINAGLIPTIN 5 MG TABLET PO SCH (07:56)
[2016-11-18] MEDS: ENOXAPARIN 40 MG/0.4 ML SYG SC SCH (08:08)
[2016-11-18] MEDS: INSULIN ASPART [NOVOLOG] 3 ML PEN SC SCH ×6 (08:08→17:18)
[2016-11-18 08:10] VITALS: BP 128/73; RESP 18
--- NOTE | 2016-11-18 10:25 | CONS ---
DATE OF ADMISSION: 11/12/2016 DATE OF CONSULTATION: 11/17/2016 Dear Doctors: Mr. Ferro is a 61-year-old gentleman who presented to [facility] secondary to left lower extremity pain and discomfort that had increased with a purulent drainage from his plantar aspect of his left foot. It was identified that the patient has had a history of second toe and third toe metatarsal ulcers. The patient mentioned that he has been having the issue with this for over the past few months, however, it has been gradually getting worse. The patient currently denies shortness of breath, chest pain, nausea, vomiting, fever or chills. Denies lower extremity rest pain. REASON FOR CONSULTATION: A 14-point review performed and negative except what is mentioned in the HPI. PAST MEDICAL HISTORY: Entails anemia of chronic disease, hypertension, coronary artery disease, diabetes, obesity, morbidly obese. PAST SURGICAL HISTORY: Coronary artery angioplasty, chronic kidney disease stage II to III, CABG, history of left hernia repair. FAMILY HISTORY: Positive for coronary artery disease and hypertension. SOCIAL HISTORY: Ex-smoker. Denies current tobacco, alcohol or illicit drug use. PHYSICAL EXAMINATION: GENERAL: Alert and oriented x3. In no apparent distress. HEENT: Normocephalic, atraumatic. PERRLA. EOMI. Mucosa moist. NECK: Supple. No carotid bruits. LUNGS: Clear to auscultation bilaterally. No crackles. HEART: S1, S2 present. No murmurs. ABDOMEN: Soft, nontender, nondistended. Positive bowel sounds. Truncal obesity. EXTREMITIES: Right lower extremity: Palpable femoral pulse. Nonpalpable pedal pulse. Motor and sensory intact. Capillary refill 3 to 4 seconds. Left lower extremity: Palpable femoral pulse. Nonpalpable pedal pulse. Motor and sensory intact. Capillary refill 3 to 4 seconds. Dressing with serosanguineous drainage on the plantar aspect of the foot. ASSESSMENT AND PLAN: 1. Bilateral lower extremity atherosclerosis with left lower extremity diabetic foot infection and nonhealing ulcer. It seems that the patient has developed significant diabetic foot ulcer in addition to him having an infrainguinal disease. Will plan to obtain noninvasive vascular studies for further evaluation of his lower extremity perfusion. 2. Optimize vascular status (diet and nutrition, exercise, antiplatelets). 3. Discussed findings and management with the patient. He understands. 4. Encouraged the patient for weight loss and continue with his smoking cessation. 5. Will continue his wound care management per our podiatry colleagues. Thank you for allowing us to partake in the care of your patient. Please call with any questions. Dictated By: Carlos Richards MD /[email or web address]/[email or web address] /Document#: [id number]
--- NOTE | 2016-11-18 12:33 | CONS ---
Date/Time of Note Date/Time of Note DATE: 11/18/16 TIME: 12:32 Assessment/Plan Assessment/Plan Chief Complaint/Hosp Course No acute changes overnight, patient is alert, looks comfortable, no fevers MRI of the left foot revealed fluid-filled mass along the plantar aspect of the left forefoot. No evidence of osteomyelitis Antibiotics: Clindamycin. Microbiology: Left foot drainage growing methicillin sensitive staph aureus, negative for anaerobes Physical examination: Obese, well-developed elderly man who is alert in no distress. Head atraumatic, normocephalic. Neck is supple. Chest rise symmetrical breath sounds clear bilaterally. S1-S2. Abdomen soft, bowel tones present. Extremities with left foot Renzo wrap intact Assessment: 1. Left foot cellulitis with abscess, no evidence of osteomyelitis per MRI===> status post debridement with abscess drainage 2. Systemic inflammatory response syndrome 3. Diabetes with diabetic neuropathy 4. Hypertension 5. Chronic kidney disease Plan: Remains stable, anticipate discharge on oral clindamycin for 2 more weeks , continue probiotics, follow podiatry and vascular surgery recommendations Discussed with staff Problems: Consultation Date/Type/Reason Admit Date/Time Nov 12, 2016 at 19:40 Type of Consultation: ID Exam/Review of Systems Vital Signs Vitals Vital Signs Date Time Temp Pulse Resp B/P Pulse Ox O2 Delivery O2 Flow Rate FiO2 11/18/16 08:10 98.4 75 18 128/73 98 11/18/16 02:00 Room Air Intake and Output 11/17/16 11/17/16 11/18/16 15:00 23:00 07:00 Intake Total 980 ml 780 ml Balance 980 ml 780 ml Results Result Diagram: 11/16/16 0501 11/16/16 0501 Results 24 hrs Laboratory Tests Test 11/17/16 17:14 11/17/16 21:13 11/18/16 07:58 11/18/16 12:02 Bedside Glucose 128 101 249 H 88 Medications Medications Current Medications Aspirin (Halfprin) 81 mg DAILY PO Last administered on 11/18/16 07:56; Admin Dose 81 MG; Start 11/13/16 at 09:00 Pantoprazole (Protonix Tab) 40 mg DAILY@06 PO Last administered on 11/18/16 05 :48; Admin Dose 40 MG; Start 11/13/16 at 06:00 Acetaminophen (Tylenol Tab) 650 mg Q6H PRN PO PAIN AND OR ELEVATED TEMP Last administered on 11/17/16 23:50; Admin Dose 650 MG; Start 11/12/16 at 21:30 Enoxaparin Sodium (Lovenox) 40 mg DAILY SC Last administered on 11/18/16 08:08 ; Admin Dose 40 MG; Start 11/13/16 at 09:00 Morphine Sulfate (morphine) 2 mg Q4H PRN IV PAIN Last administered on 11/13/16 18:41; Admin Dose 2 MG; Start 11/12/16 at 21:30 Ondansetron HCl (Zofran Inj) 4 mg Q6H PRN IV NAUSEA AND/OR VOMITING; Start 11/12 at 21:30 Diagnostic Test (Pha) (Accu-Chek) 1 ea 02 XX Last administered on 11/13/16 02: 00; Admin Dose 1 EA; Start 11/13/16 at 02:00 Miscellaneous Information 1 ea NOTE XX ; Start 11/12/16 at 22:00 Glucose (Glutose) 15 gm Q15M PRN PO DECREASED GLUCOSE; Start 11/12/16 at 22:00 Glucose (Glutose) 22.5 gm Q15M PRN PO DECREASED GLUCOSE; Start 11/12/16 at 22:00 Dextrose (D50w Syringe) 25 ml Q15M PRN IV DECREASED GLUCOSE; Start 11/12/16 at 22:00 Dextrose (D50w Syringe) 50 ml Q15M PRN IV DECREASED GLUCOSE; Start 11/12/16 at 22:00 Glucagon (Glucagen) 1 mg Q15M PRN IM DECREASED GLUCOSE; Start 11/12/16 at 22:00 Glucose (Glutose) 15 gm Q15M PRN BUCCAL DECREASED GLUCOSE; Start 11/12/16 at 22: 00 Linagliptin (Tradjenta) 5 mg DAILY PO Last administered on 11/18/16 07:56; Admin Dose 5 MG; Start 11/13/16 at 12:30 Metoprolol Succinate (Toprol Xl) 100 mg DAILY PO Last administered on 07:56; Admin Dose 100 MG; Start 11/14/16 at 09:00 Insulin Glargine 25 unit 25 unit DAILY@20 SC Last administered on 11/17/16 21: 17; Admin Dose 25 UNIT; Start 11/16/16 at 20:00 Clindamycin HCl/ Dextrose (Cleocin 600 Mg/ D5W (Pmx)) 50 ml @ 50 mls/hr Q6 IVPB Last administered on 11/18/16 12:04; Admin Dose 50 MLS/HR; Start 11/16/16 at 18:00 Lactobacillus Acidophilus (Florajen3 Capsule) 1 each BID PO Last administered on 11/18/16 07:56; Admin Dose 1 EACH; Start 11/16/16 at 21:00 SENG DUKE NP Nov 18, 2016 12:33
[2016-11-18 13:40] VITALS: BP 113/71; RESP 18
--- NOTE | 2016-11-18 17:05 | PDOCDIS ---
Discharge Instructions CONDITION Patient Condition: Stable HOME CARE INSTRUCTIONS: Special Diet: 1800 leonardo diet ACTIVITY: Activity Restrictions: Slowly Increase Activity FOLLOW UP/APPOINTMENTS Follow-up Plan f/u own pcp [address] servin [address] caceres 2 wks DENY VELASQUEZ MD Nov 18, 2016 17:04
[2016-11-18] MEDS ORDERED: LANT3I SC (17:08)
[2016-11-18] MEDS ORDERED: METF500T PO (17:08)
[2016-11-18] MEDS ORDERED: NOVO3I SC (17:08)
[2016-11-18] MEDS ORDERED: LINA5TAB PO (17:08)
[2016-11-18] MEDS ORDERED: PANT40TA4 PO (17:08)
[2016-11-18] MEDS ORDERED: METO100T13 PO (17:08)
[2016-11-18] MEDS ORDERED: L.AC460C PO (17:08)
[2016-11-18] MEDS ORDERED: CLIN-73 PO (17:11)
--- NOTE | 2016-11-21 08:31 | CONS ---
DATE OF ADMISSION: 11/12/2016 DATE OF CONSULTATION: 11/13/2016 REASON FOR CONSULTATION: Antibiotic management. HISTORY OF PRESENT ILLNESS: Simi Ferro is a 61-year-old Malay male who reportedly stepped on a nail on 11/07/2016. Subsequently, he had pain and the left leg became swollen and increased in size along with purulent drainage. He went to [facility] and was transferred to [facility]. PAST MEDICAL HISTORY: His past problems include: 1. Coronary artery disease. 2. Hypercholesterolemia. 3. Hypertension. PAST SURGICAL HISTORY: Status post coronary artery bypass grafting x3 and left hernia repair when he was 18. FAMILY HISTORY: Noncontributory. SOCIAL HISTORY: He is a former smoker. He rarely uses alcohol and he does not abuse drugs. ALLERGIES: NONE TO PENICILLIN, SULFA OR FOODS. MEDICATION: Per chart. REVIEW OF SYSTEMS: As per HPI. PHYSICAL EXAMINATION: GENERAL APPEARANCE: The patient is a well-developed, well- nourished male, who is awake, responsive, in no acute distress. VITAL SIGNS: Stable. He is afebrile. T-max 99.1. SKIN: Without generalized rash. HEENT: Within normal limits. NECK: Supple. Lymph nodes nonpalpable. CHEST: Clear to P and A. CARDIAC: Without murmur or gallop. ABDOMEN: Soft, nontender, without organosplenomegaly or masses. EXTREMITIES: Without clubbing, cyanosis, or edema. He has a swollen left foot with a draining wound. RECTAL AND GENITAL: Exams deferred. NEUROLOGIC: No focal neurological abnormalities. LABORATORY: His white count was 7.1, H and H 12.6 and 37.4, platelet count of 195,000. BUN and creatinine 21/1.17 and random glucose was 374, indicative of the fact that the patient is diabetic. IMPRESSION AND PLAN: Patient was seen by Dr. Eyal Pardo, who noted that patient had an abscess of left foot, along with cellulitis and will be scheduled for surgery, incision and drainage of the left foot abscess. The patient was begun on vancomycin and ceftriaxone. We will await culture reports, as well as the incision and drainage. I will dictate my findings to Dr. Pardo. Dictated By: Mike Day MD JD/yaima/chung /Document#: [id number]
--- NOTE | 2016-11-22 22:05 | DS ---
Date/Time of Note Date/Time of Note DATE: 11/22/16 TIME: 21:59 Discharge Summary Admission/Discharge Info Admit Date/Time Nov 12, 2016 at 19:40 Discharge Date/Time Nov 18, 2016 at 19:00 Discharge Diagnosis left foot abscess Patient Condition: Good Consults dr Day and Dr Ortiz Procedures i and d left foot Hx of Present Illness 61 yo [place] male reported that he stepped on the nail on 11/07/16, after that he felt pain and his left leg increases in size. There were purulent drainage out. Pt went in [facility] 0n 11/12/2016. He was transferred to [facility] per his insurance coverage Hospital Course No acute changes overnight, patient is alert, looks comfortable, no fevers MRI of the left foot revealed fluid-filled mass along the plantar aspect of the left forefoot. No evidence of osteomyelitis Antibiotics: Clindamycin. Microbiology: Left foot drainage growing methicillin sensitive staph aureus, negative for anaerobes Physical examination: Obese, well-developed elderly man who is alert in no distress. Head atraumatic, normocephalic. Neck is supple. Chest rise symmetrical breath sounds clear bilaterally. S1-S2. Abdomen soft, bowel tones present. Extremities with left foot Renzo wrap intact Assessment: 1. Left foot cellulitis with abscess, no evidence of osteomyelitis per MRI===> status post debridement with abscess drainage 2. Systemic inflammatory response syndrome 3. Diabetes with diabetic neuropathy 4. Hypertension 5. Chronic kidney disease Plan: Remains stable, anticipate discharge on oral clindamycin for 2 more weeks , continue probiotics, follow podiatry and vascular surgery recommendations Discussed with staff Home Meds Active Scripts Clindamycin Hcl* (Clindamycin Hcl*) 300 Mg Capsule, 300 MG PO Q6 for 14 Days, CAP Prov:DENY VELASQUEZ MD 11/18/16 Metformin Hcl (Glucophage) 500 Mg Tablet, 1000 MG PO BID WITH MEALS for 28 Days , TAB Prov:DENY VELASQUEZ MD 11/18/16 Linagliptin (TRADJENTA) 5 Mg Tablet, 5 MG PO DAILY for 28 Days, TAB Prov:DENY VELASQUEZ MD 11/18/16 Insulin Glargine* (Lantus*) 100 Unit/Ml Soln, 25 UNIT SC DAILY@20 for 28 Days Prov:DENY VELASQUEZ MD 11/18/16 Insulin Aspart* (Novolog Insulin Pen*) 100 Unit/Ml Soln, 10 UNIT SC WITH MEALS for 28 Days Prov:DENY VELASQUEZ MD 11/18/16 Pantoprazole* (Pantoprazole*) 40 Mg Tablet.dr, 40 MG PO DAILY@06 for 14 Days Prov:DENY VELASQUEZ MD 11/18/16 L Acidophil/B Lactis/B Longum (FLORAJEN3 CAPSULE) 460 Mg Capsule, 1 EACH PO BID for 28 Days, CAP Prov:DENY VELASQUEZ MD 11/18/16 Metoprolol Succinate* (Toprol XL*) 100 Mg Tab.sr.24h, 100 MG PO DAILY for 28 Days Prov:DENY VELASQUEZ MD 11/18/16 Reported Medications Metformin Hcl* (Metformin Hcl*) 500 Mg Tablet, 500 MG PO WITH BREAKFAST, #30 TAB 10/22/15 Aspirin* (Aspirin* EC) 81 Mg Tablet.dr, 81 MG PO DAILY, TAB 10/22/15 Lisinopril* (Lisinopril*) 20 Mg Tablet, 20 MG PO DAILY, #30 TAB 10/22/15 Follow-up Plan amputation prevention center Primary Care Provider Danni Powell Time spent on discharge: < 30 minutes ADAN PALMA Nov 22, 2016 22:05
== END 2016-11-18 19:00 | disposition home health service (06) | DRG 603 ==
LOC: MS2 19:40
PROVIDERS: ADMIT Internal Medicine Nephrology; ATTEND Internal Medicine Nephrology
PROC: 0J9R3ZZ Drainage of Left Foot Subcutaneous Tissue and Fascia, Percutaneous Approach (ICD-10-PCS; principal; 2016-11-15 18:00)
DX: L03.116 Cellulitis of left lower limb (principal); R65.10 Systemic inflammatory response syndrome (SIRS) of non-infectious origin without acute organ dysfunction; E11.22 Type 2 diabetes mellitus with diabetic chronic kidney disease; N18.3 Chronic kidney disease, stage 3 (moderate); E11.42 Type 2 diabetes mellitus with diabetic polyneuropathy; L02.612 Cutaneous abscess of left foot; E11.65 Type 2 diabetes mellitus with hyperglycemia; I12.9 Hypertensive chronic kidney disease with stage 1 through stage 4 chronic kidney disease, or unspecified chronic kidney disease; E66.9 Obesity, unspecified; Z68.35 Body mass index [BMI] 35.0-35.9, adult; D64.9 Anemia, unspecified; I25.10 Atherosclerotic heart disease of native coronary artery without angina pectoris; I70.245 Atherosclerosis of native arteries of left leg with ulceration of other part of foot; E11.51 Type 2 diabetes mellitus with diabetic peripheral angiopathy without gangrene; E11.621 Type 2 diabetes mellitus with foot ulcer; L97.529 Non-pressure chronic ulcer of other part of left foot with unspecified severity; Z95.1 Presence of aortocoronary bypass graft; Z95.5 Presence of coronary angioplasty implant and graft; Z87.891 Personal history of nicotine dependence
CPT/HCPCS: 73718; 80048; 80053; 80202; 82962; 83036; 85025; 87070; 87075; 87081; 87102; 93922; 93970; J0696; J1170; J1650; J1815; J2250; J2270; J2795; J3010; J3370; J7050

== ENCOUNTER 2018-11-18 18:14 | Inpatient (IN) | payer BC ==
[~2018-11-18] VITALS: Ht 165.1 cm; Wt 82.2 kg
[~2018-11-18 18:14] MED LIST changes: -ASPI-664 PO; +ASPI-817 PO; +CLIN300C10 PO; +L.AC460C PO; +LANT3I SC; +LINA5TAB PO; +LISI-471 PO; -LISI20TA11 PO; +METF500T PO; +METF500T24 PO; -METF500T4 PO; +METO-336 PO; +NOVO3I SC; +PANT40TA4 PO
[2018-11-18 18:30] VITALS: BP 130/61; PULSE 99; RESP 17; Ht 165.1 cm; Wt 82.2 kg
[2018-11-18] MEDS ORDERED: hydrALAzine 20 MG INJ IV PRN (20:00)
[2018-11-18] MEDS ORDERED: ACETAMINOPHEN 325 MG TAB PO PRN (20:00)
[2018-11-18] MEDS ORDERED: GLUCAGON 1 MG INJ IM PRN (21:00)
[2018-11-18] MEDS: INSULIN ASPART [NOVOLOG] 3 ML PEN SC SCH (21:00)
[2018-11-18] MEDS ORDERED: DEXTROSE 50% 50 ML SYRINGE IV PRN ×2 (21:00)
[2018-11-18] MEDS ORDERED: GLUCOSE GEL 15 GRAM TUBE PO PRN ×2 (21:00)
[2018-11-18] MEDS ORDERED: GLUCOSE GEL 15 GRAM TUBE BUCCAL PRN (21:00)
[2018-11-18 21:21] VITALS: BP 171/97; PULSE 95; RESP 20
[2018-11-18] MEDS: DEXTROSE 5%-0.9% NACL 1,000 ML IV SCH (23:14)
[2018-11-19 00:40] VITALS: BP 143/83; PULSE 86; RESP 18
[2018-11-19] MEDS: INSULIN ASPART [NOVOLOG] 3 ML PEN SC SCH ×5 (01:00→16:16)
[2018-11-19 05:19] VITALS: BP 138/86; PULSE 87; RESP 20
[2018-11-19] MEDS ORDERED: PANTOPRAZOLE 40 MG INJ IV SCH (06:00)
[2018-11-19] MEDS: ACCU-CHEK XX SCH ×3 (07:00→16:10)
[2018-11-19] MEDS: ASPIRIN 81 MG TAB PO SCH (09:00)
[2018-11-19] MEDS: DEXTROSE 5%-0.9% NACL 1,000 ML IV SCH (09:35)
[2018-11-19 10:02] VITALS: BP 132/86; PULSE 90; RESP 17
[2018-11-19 11:47] VITALS: BP 145/86; PULSE 95; RESP 18
--- NOTE | 2018-11-19 13:29 | HP ---
Date/Time of Note Date/Time of Note DATE: 11/19/18 TIME: 13:20 Assessment/Plan VTE Prophylaxis Risk score (from Ns)>0 risk: 4 SCD applied (from [facility]): No SCD contraindicated: low risk/ambulating Pharmacological prophylaxis: NA/contraindicated Pharm contraindication: other (diagnostic in process) Lines/Catheters IV C[facility]ter Type (from [facility]): Peripheral IV Assessment/Plan Hospital Course 1. right arm weakness 2. DM type II 3. Obesity 4. Hypertension 5. SIRS, with elevated lactic acid twice. The left shift of neutrophils. 6. Hx of 3 vessel heart bypass. 2003 7. hx of herniorrhaphy left 8. Injury of the right big toe 9. Hx of cellulitis 10. Chronic kidney disease. UA is negative Assessment/Plan -DVT proph. -Start physical therapy -if passes swallow eval start 1800 ADA iet _GI proph. Protonix -MRI head done, pending -hypoglycemic control -MRI brain pending -c/w home meds -c/w Aspirin due to stents -cardiology consult dr Bonner -neurology consult Dr Matthews Results 24hrs Laboratory Tests Test 11/18/18 21:02 11/18/18 23:02 11/19/18 00:37 11/19/18 01:55 Triglycerides Level 210 H Cholesterol Level 281 H LDL Cholesterol, 198 Calculated HDL Cholesterol 41 Cholesterol/HDL 6.8 Ratio Bedside Glucose 105 115 Troponin I 0.013 Test 11/19/18 05:06 11/19/18 05:48 11/19/18 09:36 11/19/18 11:40 Troponin I < 0.012 < 0.012 Bedside Glucose 166 176 HPI/ROS Admit Date/Time Admit Date/Time Nov 18, 2018 at 18:14 Hx of Present Illness This 63 y.o male woke up two days ago and felt weakness of right arm. He has hx of DM type ii, obesity, CAD, hypertension. While walking he injured big toe right foot. Denied ground fall, pt headed to [facility]. X-ray of the chest was performed ; showed mild cardiomegaly without significant pulmonary vascular congestion no discrete focal pneumonia effusion or pneumothorax. Sternotomy sutures and surgical s[place] in the mediastinal upper abdomen appears normal.. Hematology showed WBC 5.7 RBC 5.63. Hemoglobin 14.7 hematocrit crit 45.8 sodium 136 potassium 4.6 chloride 102 CO2 19 gap 15 BUN 20 creatinine 1.31 glucose 81 GFR 66 lactate was 2.8 once and lactate was 2.4 once troponin I was negative UA showed pH 5.5 protein 300 glucose 300 UA blood small leukocyte esterase negative nitrate negative. CT brain without contrast showed no definite acute intracranial or cranial findings. No midline shift no hydrocephalus diffuse chronic microvascular ischemic changes. Small likely chronic lacunar along the left posterior cerebellum. No definite large te rritorial acute cortical infarct. Recommended MRI. Social history , denied alcohol or smoking ROS Musculoskeletal: other (weakness right arm) PMH/Family/Social Past Medical History Medical History: coronary artery disease, diabetes, hypertension Medications Current Medications Aspirin (Aspirin) 81 mg DAILY PO ; Start 11/19/18 at 09:00 Dextrose/Sodium Chloride 1,000 ml @ 30 mls/hr Q24H IV Last administered on 11/19/18at 09:35; Admin Dose 30 MLS/HR; Start 11/18/18 at 20:00 Pantoprazole (Protonix Iv) 40 mg DAILY@06 IV Last administered on 11/19/18at 05:49; Admin Dose 40 MG; Start 11/19/18 at 06:00 Acetaminophen (Tylenol Tab) 650 mg Q6H PRN PO MILD PAIN(1-3)OR ELEVATED TEMP; Start 11/18/18 at 20:00 Diagnostic Test (Pha) (Accu-Chek) 1 ea AC MEALS XX ; Start 11/19/18 at 07:00 Hydralazine HCl (Apresoline) 5 mg Q6H PRN IV SBP GREATER THAN 160; Start 11/18/18 at 20:00 Insulin Aspart (Novolog Insulin Pen) NOVOLOG *MILD* ALGORI... Q4 SC Last administered on 11/19/18at 09:40; Admin Dose 1 UNIT; Start 11/18/18 at 21:00 Miscellaneous Information 1 ea NOTE XX ; Start 11/18/18 at 21:00 Glucose (Glutose) 15 gm Q15M PRN PO DECREASED GLUCOSE; Start 11/18/18 at 21:00 Glucose (Glutose) 22.5 gm Q15M PRN PO DECREASED GLUCOSE; Start 11/18/18 at 21:00 Dextrose (D50w Syringe) 25 ml Q15M PRN IV DECREASED GLUCOSE; Start 11/18/18 at 21:00 Dextrose (D50w Syringe) 50 ml Q15M PRN IV DECREASED GLUCOSE; Start 11/18/18 at 21:00 Glucagon (Glucagen) 1 mg Q15M PRN IM DECREASED GLUCOSE; Start 11/18/18 at 21:00 Glucose (Glutose) 15 gm Q15M PRN BUCCAL DECREASED GLUCOSE; Start 11/18/18 at 21:00 Coded Allergies: iodine (Verified Allergy, Unknown, 10/22/15) Past Surgical History Past Surgical Hx: coronary bypass surgery (2003), other (inguinal hernia repair 30 years ago) Family History Significant Family History: no pertinent family hx Social History Alcohol Use: none Smoking Status: Never smoker Drug Use: none Exam/Review of Systems Vital Signs Vitals Vital Signs Date Temp Pulse Resp B/P (MAP) Pulse Ox O2 O2 Flow FiO2 Time Delivery Rate 11/19/18 Room Air 12:00 11/19/18 98.2 95 18 145/86 97 11:47 (105) 11/18/18 2.0 22:00 Exam Constitutional: alert, oriented Head: normocephalic Eyes: nl conjunctiva Neck: supple Respiratory: diminished breath sounds Cardiovascular: regular rate and rhythm Gastrointestinal: soft, surgical scars Musculoskeletal: muscle weakness (right arm) Extremities: other (right big toe wound) ADAN PALMA Nov 19, 2018 13:29
[2018-11-19 15:44] VITALS: BP 137/84; PULSE 98; RESP 18
[2018-11-19] MEDS: ASPIRIN (EC) 81 MG TAB PO SCH (16:10)
[2018-11-19] MEDS: LISINOPRIL 20 MG TAB PO SCH (16:10)
[2018-11-19] MEDS: LINAGLIPTIN 5 MG TABLET PO SCH (16:10)
[2018-11-19] MEDS: MUPIROCIN 2% 22 GM OINT TOP SCH ×2 (16:46→20:21)
--- NOTE | 2018-11-19 18:03 | CONS ---
DATE OF ADMISSION: 11/18/2018 DATE OF CONSULTATION: 11/19/2018 REASON FOR CONSULTATION: CAD, history of CABG, assess for acute coronary syndrome as well as hyperte nsion. REQUESTING PHYSICIAN: Akin Velasquez MD HISTORY OF PRESENT ILLNESS: Mr. Ferro is a 63-year-old male with history of coronary artery dise ase, status post coronary artery bypass graft surgery 2004 x3 with 2 grafts being patent by catheteri zation 2016, ECHEVARRIA to LAD and an SVG to OM with a third graft occluded at that time, diabetes mellitus , hypertension, prior hernia surgery who initially presented to an outside hospital, [facility], with complaints of right arm weakness. The patient at the outside hospital was noted to h ave a negative troponin, underwent a head CT that revealed no acute intracranial abnormalities. The patient thereafter transferred to [facility] due to insurance reasons. Since arri seth at [facility], the patient with relatively reasonable blood pressures with some lability and mild elevations, and heart rates have been sinus rhythm to sinus tachycardia, especiall y with ambulation. PAST MEDICAL HISTORY: As above in HPI. MEDICATIONS CURRENTLY IN HOSPITAL: 1. Toprol-XL 100 mg daily being started today. 2. Metformin. 3. Protonix. 4. Insulin. 5. Aspirin 81 mg daily. 6. Tradjenta. 7. Zestril 20 mg daily. 8. D5 fluid hydration. 9. Tylenol. 10. Hydralazine IV push p.r.n. ALLERGIES: IODINE. SOCIAL HISTORY: No current tobacco, ETOH or illicit drug use. FAMILY HISTORY: No history of sudden cardiac or early CAD. REVIEW OF SYSTEMS: As above in HPI. CONSTITUTIONAL: No fevers, chills. PULMONARY: No current signs of respiratory compromise. GASTROINTESTINAL: No vomiting. GENITOURINARY: No hematuria. MUSCULOSKELETAL: Right arm weakness. PSYCHIATRIC: No documented psych history. NEUROLOGIC: Right arm weakness. ENDOCRINE: Diabetes mellitus. CARDIOVASCULAR: History of coronary artery bypass graft. PHYSICAL EXAMINATION: VITAL SIGNS: Temperature 98.2, blood pressure 145/86, pulse 95, respiratory rate 18, satting 97%. GENERAL: The patient is alert, awake, complaining of right arm weakness. NECK: JVP approximately 8 to 9 of water. CHEST: Fair air movement throughout. HEART: Tachycardic, regular rhythm, normal S1, S2, I/ systolic murmur, nondisplaced PMI. ABDOMEN: Positive bowel sounds, soft. EXTREMITIES: No edema, 1+ pulses bilaterally at the dorsalis pedis. LABORATORIES: Most recently since arrival here, LDL of 198, HDL of 41. Troponins are negative x3. From an outside hospital on November 18 was also noted to have renal failure with a creatinine of 1.31, w zana blood cell count of 5.7, hemoglobin 14.7, platelet count 204. IMAGING STUDIES: A carotid Doppler done here reveals no evidence for hemodynamically significant chip nosis. ECG: No electrocardiograms for my review at this time. IMPRESSION: 1. Hypertension, mildly elevated but since started on baseline antihypertensives. Follow up after r eceiving. 2. History of coronary artery disease, status post coronary artery bypass grafting with a known occl usion of one graft by catheterization 2015. Negative troponin x3 here. No chest pain. 3. Dyslipidemia. 4. Right arm weakness. Rule out acute cerebrovascular accident, rule out radiculopathy. Negative h ead CT at outside hospital. 5. Diabetes mellitus. 6. Renal failure from outside hospital. RECOMMENDATIONS: 1. At this time, would maintain patient on telemetry monitoring to follow rhythm and rates closely. 2. Continue the patient's aspirin for prophylaxis against further cardiovascular events and for chin t patency. Would continue the patient's current lisinopril and Toprol and follow blood pressure afte r receiving. 3. Start patient on statin therapy in the setting of a significantly elevated LDL and known coronary artery bypass graft surgery. 4. Continue the patient's metformin. Follow blood sugars closely. 5. Pending neurologic evaluation of right arm weakness. Thank you for allowing me to take part in the care of this patient. I will continue to follow him al nuria very closely with you. Further recommendations will be made as the patient progresses through hi s inpatient hospital course. Dictated By: JUDAH SALEH/FLAKITA Conf#: [id number] DID#: [id number] CC: AKIN VELASQUEZ MD;*EndCC*
[2018-11-19] MEDS: ATORVASTATIN 40 MG TAB PO SCH (20:20)
[2018-11-19] MEDS: INSULIN GLARGINE [LANTus] (100 UNITS/ML) SYG SC SCH (20:26)
[2018-11-19 20:36] VITALS: BP 117/67; PULSE 86; RESP 18
--- NOTE | 2018-11-19 21:34 | HKNOTE ---
DATE OF SERVICE: HISTORY OF PRESENT ILLNESS: The patient is 63 years old status post past medical history of diabetes , hypertension, obesity, coronary artery disease, bypass in 2003, in which the patient was admitted w ith right-sided weakness in which the patient got a call about him today for more evaluation and tray tment. CURRENT MEDICATIONS: Includes: 1. Toprol 100 mg once a day. 2. Glucophage 500 mg twice a day. 3. Protonix 40 mg once a day. 4. Lipitor 40 mg once a day. 5. Aspirin 81 mg once a day. 6. Tradjenta 5 mg once a day. 7. Zestoretic 20 mg once a day. 8. Aspirin 81 mg once a day. PAST MEDICAL HISTORY: As above, which include non-insulin dependent diabetes, hypertension, dyslipid emia, coronary artery disease, CABG. PHYSICAL EXAMINATION: GENERAL: Patient is alert, awake, oriented, following simple commands. HEART: Regular rate and rhythm. LUNGS: Equal breath sounds. ABDOMEN: Soft, relaxed, nondistended, no tenderness. CRANIAL NERVES: Cranial nerve II: Pupils equal on both sides, reactive to light. Cranial nerves II I, IV, and : Extraocular muscles are intact without nystagmus. Cranial nerve V: Equal sensation to face. Cranial nerve VII: Decreased nasolabial fold on the right side. Cranial nerve VIII: Decr eased hearing bilaterally. Cranial nerves IX and X: Elevates palate. Cranial nerve XI: Elevates s houlder 5/5. Cranial nerve XII: With straight tongue. MOTOR: Decreased right side 4+/5. Sensation decreased on the right side for light touch and tempera ture. COORDINATION: [id number] test intact. HEART: Regular rate and rhythm. LUNGS: Equal. ASSESSMENT AND PLAN: 1. The patient is 63 years old status post right-sided weakness, possibility of underlying acute sub cortical stroke. Follow up the patient's MRI, carotid Doppler, 2D echocardiogram. I will start the patient on Plavix 75 mg once a day until we get the results. 2. Hypertension. Keep the blood pressure at the level of 140/90 to avoid any extension of the strok e. 3. Diabetes. Follow up the patient's sliding scale insulin and Accu-Chek. Patient already include ____. 4. Keep the patient under deep venous thrombosis prophylaxis and decubitus ulcer prophylaxis. 5. Follow up the patient with physical therapy and rehabilitation. 6. Decreased gait. Follow up the patient with gait balance. 7. Peripheral neuropathy, probably secondary to diabetes. Follow up the patient with nerve conducti on study and electromyogram. Again, thank you for asking me to see the patient with you. Dictated By: HALIMA DIEZ MD NA/NTS Conf#: [id number] DID#: [id number] CC: DENY VELASQUEZ MD;*EndCC*
[2018-11-20 00:35] VITALS: BP 144/68; PULSE 78; RESP 20
[2018-11-20 04:31] VITALS: BP 121/69; PULSE 79; RESP 16
[2018-11-20] MEDS: PANTOPRAZOLE (EC) 40 MG TAB PO SCH (05:04)
[2018-11-20 07:18] VITALS: BP 130/72; PULSE 86; RESP 18
[2018-11-20] MEDS: ACCU-CHEK XX SCH ×3 (07:51→17:24)
[2018-11-20] MEDS ORDERED: metFORMIN 500 MG TAB PO SCH (08:00)
[2018-11-20] MEDS: LINAGLIPTIN 5 MG TABLET PO SCH (08:10)
[2018-11-20] MEDS: ASPIRIN 81 MG TAB PO SCH ×2 (08:10→09:00)
[2018-11-20] MEDS: CLOPIDOGREL 75 MG TAB PO SCH (08:10)
[2018-11-20] MEDS: ASPIRIN (EC) 81 MG TAB PO SCH (08:10)
[2018-11-20] MEDS: INSULIN ASPART [NOVOLOG] 3 ML PEN SC SCH ×3 (08:13→17:24)
[2018-11-20] MEDS: LISINOPRIL 20 MG TAB PO SCH (09:00)
[2018-11-20] MEDS ORDERED: METOPROLOL (XL) 100 MG TAB PO SCH (09:00)
[2018-11-20] MEDS: MUPIROCIN 2% 22 GM OINT TOP SCH ×2 (09:59→21:40)
--- NOTE | 2018-11-20 10:43 | CONS ---
Assessment/Plan Assessment/Plan Hospital Course (Demo Recall) IMPRESSION: 1. Hypertension, mildly elevate-per neuro is to have mild permissive HTN>140/90 2. History of coronary artery disease, status post coronary artery bypass grafting with a known occlusion of one graft by catheterization 2016. Negative troponin x3 here. No chest pain. 3. Dyslipidemia. 4. Right arm weakness. Rule out acute cerebrovascular accident. Negative head CT at outside hospital. Now s/p MRI revealing acute CVA. No sig arrythmias noted on tele 5. Diabetes mellitus. 6. Renal failure from outside hospital. Recc: -Tele -Reduce doses of BB/ACEI and give hold parameters to allow for permissive HTN -Continue asa/plavix -will f/u echo -neuro following -continue statin Consultation Date/Type/Reason Admit Date/Time Nov 18, 2018 at 18:14 Initial Consult Date 11/19/18 Type of Consult Cardiology Reason for Consultation cad s/p cabg Requesting Provider: DENY VELASQUEZ MD Date/Time of Note DATE: 11/20/18 TIME: 10:39 Exam/Review of Systems Vital Signs Vitals Vital Signs Date Temp Pulse Resp B/P (MAP) Pulse Ox O2 O2 Flow FiO2 Time Delivery Rate 11/20/18 97.8 86 18 130/72 95 Room Air 07:18 (91) 11/18/18 2.0 22:00 Intake and Output 11/19/18 11/19/18 11/20/18 1515:00 23:00 07:00 IntakeIntake Total 60 ml 1300 ml BalanceBalance 60 ml 1300 ml Exam Exam Review of Systems: CONSTITUTIONAL: No fevers, chills. PULMONARY: No sob CARDIOVASCULAR: No chest pain/palpitations GASTROINTESTINAL: No nausea/vomiting. GENITOURINARY: No hematuria/dysuria. MUSCULOSKELETAL: No myagias/arthalgias. PSYCHIATRIC: The patient denies depression. NEUROLOGIC: RUE weakness Constitutional: alert Psych: no complaints Head: normocephalic ENMT: mucosa pink and moist Neck: supple, jvd (8 cm wter) Respiratory: clear to auscultation Cardiovascular: regular rate and rhythm Gastrointestinal: soft, non-tender Musculoskeletal: muscle tone (normal) Extremities: edema (none) Neurological: focal weakness (RUE) Labs Result Diagram: 11/20/1852511/20/18 05 Results 24hrs Laboratory Tests Test 11/19/18 11:40 11/19/18 16:12 11/19/18 20:15 11/20/18 05:26 Troponin I < 0.012 Bedside Glucose 226 H 191 White Blood Count 5.3 # Red Blood Count 5.40 # Hemoglobin 14.2 # Hematocrit 43.9 # Mean Corpuscular 81.3 L Volume Mean Corpuscular 26.3 L Hemoglobin Mean Corpuscular 32.3 Hemoglobin Concent Red Cell 14.7 #H Distribution Width Platelet Count 198 Mean Platelet Volume 10.2 Immature 0.600 H Granulocytes % Neutrophils % 67.7 Lymphocytes % 21.8 Monocytes % 7.0 Eosinophils % 2.3 Basophils % 0.6 Nucleated Red Blood 0.0 Cells % Immature 0.030 Granulocytes # Neutrophils # 3.6 Lymphocytes # 1.2 Monocytes # 0.4 Eosinophils # 0.1 Basophils # 0.0 Nucleated Red Blood 0.0 Cells # Sodium Level 141 Potassium Level 4.3 Chloride Level 106 Carbon Dioxide Level 25 Anion Gap 10 Blood Urea Nitrogen 25 H Creatinine 1.32 H Est Glomerular 54 L Filtrat Rate mL/min Glucose Level 215 Hemoglobin A1c 9.5 H Calcium Level 9.3 Test 11/20/18 07:37 Bedside Glucose 192 Medications Medications Current Medications Aspirin (Aspirin) 81 mg DAILY PO ; Start 11/19/18 at 09:00 Acetaminophen (Tylenol Tab) 650 mg Q6H PRN PO MILD PAIN(1-3)OR ELEVATED TEMP; Start 11/18/18 at 20:00 Diagnostic Test (Pha) (Accu-Chek) 1 ea AC MEALS XX Last administered on 11/20/18at 07:51; Admin Dose 1 EA; Start 11/19/18 at 07:00 Hydralazine HCl (Apresoline) 5 mg Q6H PRN IV SBP GREATER THAN 160; Start 11/18/18 at 20:00 Miscellaneous Information 1 ea NOTE XX ; Start 11/18/18 at 21:00 Glucose (Glutose) 15 gm Q15M PRN PO DECREASED GLUCOSE; Start 11/18/18 at 21:00 Glucose (Glutose) 22.5 gm Q15M PRN PO DECREASED GLUCOSE; Start 11/18/18 at 21:00 Dextrose (D50w Syringe) 25 ml Q15M PRN IV DECREASED GLUCOSE; Start 11/18/18 at 21:00 Dextrose (D50w Syringe) 50 ml Q15M PRN IV DECREASED GLUCOSE; Start 11/18/18 at 21:00 Glucagon (Glucagen) 1 mg Q15M PRN IM DECREASED GLUCOSE; Start 11/18/18 at 21:00 Glucose (Glutose) 15 gm Q15M PRN BUCCAL DECREASED GLUCOSE; Start 11/18/18 at 21:00 Aspirin (Halfprin) 81 mg DAILY PO Last administered on 11/20/18 08:10; Admin Dose 81 MG; Start 11/19/18 at 14:30 Linagliptin (Tradjenta) 5 mg DAILY PO Last administered on 11/20/18 08:10; Admin Dose 5 MG; Start 11/19/18 at 14:30 Lisinopril (Zestril) 20 mg DAILY PO Last administered on 11/19/18 16:10; Admin Dose 20 MG; Start 11/19/18 at 14:30 Metoprolol Succinate (Toprol Xl) 100 mg DAILY PO ; Start 11/20/18 at 09:00 Pantoprazole (Protonix Tab) 40 mg DAILY@06 PO Last administered on 11/20/18 05:04; Admin Dose 40 MG; Start 11/20/18 at 06:00 Insulin Aspart (Novolog Insulin Pen) NOVOLOG *MILD* ALGORI... AC MEALS SC Last administered on 11/20/18 08:13; Admin Dose 2 UNIT; Start 11/19/18 at 17:30 Atorvastatin Calcium (Lipitor) 40 mg HS PO Last administered on 11/19/18 20:20; Admin Dose 40 MG; Start 11/19/18 at 21:00 Clopidogrel Bisulfate (plaVIX) 75 mg DAILY PO Last administered on 11/20/18 08:10; Admin Dose 75 MG; Start 11/20/18 at 09:00 Mupirocin (Bactroban) 1 applic BID TOP Last administered on 11/20/18 09:59; Admin Dose 1 APPLIC; Start 11/19/18 at 17:30 Insulin Glargine (Lantus) 12 units QHS SC Last administered on 11/19/18 20:26; Admin Dose 12 UNITS; Start 11/19/18 at 21:00 JUDAH SU 15, 2019 10:43
[2018-11-20 11:12] VITALS: BP 109/76; PULSE 95; RESP 18
--- NOTE | 2018-11-20 12:38 | PN ---
Date/Time of Note Date/Time of Note DATE: 11/20/18 TIME: 12:33 Assessment/Plan VTE Prophylaxis Risk score (from [facility] [place])>0 risk: 3 SCD applied (from [facility] [place]): Yes Pharmacological prophylaxis: NA/contraindicated Pharm contraindication: low risk/ambulating Lines/Catheters IV Catheter Type (from [facility]): Saline Lock Assessment/Plan Assessment/Plan 1. right arm weakness MRI brain 11/20/18 1. Acute, ischemic, infarcts in the left posterior frontal paige radiography and left external capsule 2. DM type II 3. Obesity 4. Hypertension 5. SIRS, source ? 6. Hx of 3 vessel heart bypass. 2003 7. hx of herniorrhaphy left 8. Injury of the right big toe 9. Hx of cellulitis 10. Chronic kidney disease. UA is negative CR 1.3 Assessment/Plan -CW ASA 81 and plavix 75 and atorvastatin 40 -Lisinopril and metoprolol per cardiology -Aggressive PT/OT -cwWith Lantus 12/Tradjenta -Echo pending and carotid ultrasound negative -cardiology consult dr Bonner -neurology consult Dr Byron lacy Result Diagram: 11/20/1852511/20/18525 Results 24hrs Laboratory Tests Test 11/19/18 16:12 11/19/18 20:15 11/20/18 05:26 11/20/18 07:37 Bedside Glucose 226 H 191 192 White Blood Count 5.3 # Red Blood Count 5.40 # Hemoglobin 14.2 # Hematocrit 43.9 # Mean Corpuscular 81.3 L Volume Mean Corpuscular 26.3 L Hemoglobin Mean Corpuscular 32.3 Hemoglobin Concent Red Cell 14.7 #H Distribution Width Platelet Count 198 Mean Platelet Volume 10.2 Immature 0.600 H Granulocytes % Neutrophils % 67.7 Lymphocytes % 21.8 Monocytes % 7.0 Eosinophils % 2.3 Basophils % 0.6 Nucleated Red Blood 0.0 Cells % Immature 0.030 Granulocytes # Neutrophils # 3.6 Lymphocytes # 1.2 Monocytes # 0.4 Eosinophils # 0.1 Basophils # 0.0 Nucleated Red Blood 0.0 Cells # Sodium Level 141 Potassium Level 4.3 Chloride Level 106 Carbon Dioxide Level 25 Anion Gap 10 Blood Urea Nitrogen 25 H Creatinine 1.32 H Est Glomerular 54 L Filtrat Rate mL/min Glucose Level 215 Hemoglobin A1c 9.5 H Calcium Level 9.3 Test 11/20/18 11:58 Bedside Glucose 252 H Subjective 24 Hr Interval Summary Free Text/Dictation mri revirewed Weakness in RUE Exam/Review of Systems Exam Vitals onstitutional: alert, oriented Head: normocephalic Eyes: nl conjunctiva Neck: supple Respiratory: diminished breath sounds Cardiovascular: regular rate and rhythm Gastrointestinal: soft, surgical scars Musculoskeletal: muscle weakness (right arm) Results Results 24hrs Laboratory Tests Test 11/19/18 16:12 11/19/18 20:15 11/20/18 05:26 11/20/18 07:37 Bedside Glucose 226 H 191 192 White Blood Count 5.3 # Red Blood Count 5.40 # Hemoglobin 14.2 # Hematocrit 43.9 # Mean Corpuscular 81.3 L Volume Mean Corpuscular 26.3 L Hemoglobin Mean Corpuscular 32.3 Hemoglobin Concent Red Cell 14.7 #H Distribution Width Platelet Count 198 Mean Platelet Volume 10.2 Immature 0.600 H Granulocytes % Neutrophils % 67.7 Lymphocytes % 21.8 Monocytes % 7.0 Eosinophils % 2.3 Basophils % 0.6 Nucleated Red Blood 0.0 Cells % Immature 0.030 Granulocytes # Neutrophils # 3.6 Lymphocytes # 1.2 Monocytes # 0.4 Eosinophils # 0.1 Basophils # 0.0 Nucleated Red Blood 0.0 Cells # Sodium Level 141 Potassium Level 4.3 Chloride Level 106 Carbon Dioxide Level 25 Anion Gap 10 Blood Urea Nitrogen 25 H Creatinine 1.32 H Est Glomerular 54 L Filtrat Rate mL/min Glucose Level 215 Hemoglobin A1c 9.5 H Calcium Level 9.3 Test 11/20/18 11:58 Bedside Glucose 252 H Medications Medication Current Medications Aspirin (Aspirin) 81 mg DAILY PO ; Start 11/19/18 at 09:00 Acetaminophen (Tylenol Tab) 650 mg Q6H PRN PO MILD PAIN(1-3)OR ELEVATED TEMP; Start 11/18/18 at 20:00 Diagnostic Test (Pha) (Accu-Chek) 1 ea AC MEALS XX Last administered on 11/20/18at 12:10; Admin Dose 1 EA; Start 11/19/18 at 07:00 Hydralazine HCl (Apresoline) 5 mg Q6H PRN IV SBP GREATER THAN 160; Start 11/18/18 at 20:00 Miscellaneous Information 1 ea NOTE XX ; Start 11/18/18 at 21:00 Glucose (Glutose) 15 gm Q15M PRN PO DECREASED GLUCOSE; Start 11/18/18 at 21:00 Glucose (Glutose) 22.5 gm Q15M PRN PO DECREASED GLUCOSE; Start 11/18/18 at 21:00 Dextrose (D50w Syringe) 25 ml Q15M PRN IV DECREASED GLUCOSE; Start 11/18/18 at 21:00 Dextrose (D50w Syringe) 50 ml Q15M PRN IV DECREASED GLUCOSE; Start 11/18/18 at 21:00 Glucagon (Glucagen) 1 mg Q15M PRN IM DECREASED GLUCOSE; Start 11/18/18 at 21:00 Glucose (Glutose) 15 gm Q15M PRN BUCCAL DECREASED GLUCOSE; Start 11/18/18 at 21:00 Linagliptin (Tradjenta) 5 mg DAILY PO Last administered on 11/20/18at 08:10; Admin Dose 5 MG; Start 11/19/18 at 14:30 Pantoprazole (Protonix Tab) 40 mg DAILY@06 PO Last administered on 11/20/18at 05:04; Admin Dose 40 MG; Start 11/20/18 at 06:00 Insulin Aspart (Novolog Insulin Pen) NOVOLOG *MILD* ALGORI... AC MEALS SC Last administered on 11/20/18at 12:04; Admin Dose 3 UNIT; Start 11/19/18 at 17:30 Atorvastatin Calcium (Lipitor) 40 mg HS PO Last administered on 11/19/18at 20:20; Admin Dose 40 MG; Start 11/19/18 at 21:00 Clopidogrel Bisulfate (plaVIX) 75 mg DAILY PO Last administered on 11/20/18at 08:10; Admin Dose 75 MG; Start 11/20/18 at 09:00 Mupirocin (Bactroban) 1 applic BID TOP Last administered on 11/20/18at 09:59; Admin Dose 1 APPLIC; Start 11/19/18 at 17:30 Insulin Glargine (Lantus) 12 units QHS SC Last administered on 11/19/18at 20:26; Admin Dose 12 UNITS; Start 11/19/18 at 21:00 Lisinopril (Zestril) 10 mg DAILY PO ; Start 11/21/18 at 09:00 Metoprolol Succinate (Toprol Xl) 50 mg DAILY PO ; Start 11/21/18 at 09:00 JAMES WILLIS MD Nov 20, 2018 12:37
--- NOTE | 2018-11-20 13:19 | RADRPT ---
Echocardiogram Report Patient Name: TERESITA JOSÉPatient ID: [id number] : 1955 (63y 3m)Study Date: 11/20/2018 7:06:49 AM Gender: MAccession #: [id number] Tech: RaymondElyssa Pritchett [facility] Location: 626 Ref.Physician: DENY VELASQUEZ Height(Cm): BSA: Weight(Kg): Quality: Technically Difficult StudyOrder Physician: DENY VELASQUEZ Account #: Procedures: Echocardiographic Report: Transthoracic echocardiogram with complete 2D, M-Mode, and doppler examination. Indications: RS weakness. Measurements: 2D/M Mode Doppler Measurement Value Normal Range Measurement Value Normal Range LVIDd 2D 4.8 [ 4.2 - 5.8 ] cm AV Peak William 1.7 [ 100.0 - 170.0 ] cm/sec LVIDs 2D 3.7 [ 2.5 - 4.0 ] cm AV Peak PG 12.0 [ 2.0 - 9.0 ] mmHg LVPWd 2D 1.0 [ 0.6 - 1.0 ] cm LVOT Peak William 0.8 [ 70.0 - 110.0 ] cm/sec IVSd 2D 1.0 [ 0.6 - 1.0 ] cm LVOT Peak PG 3.0 [ 2.0 - 6.0 ] mmHg AoR Diam 2D 3.4 [ 2.6 - 3.4 ] cm MV E Peak William 0.8 [ 60.0 - 130.0 ] cm/sec EDV 2D 105.0 [ 62.0 - 150.0 ] ml MV A Peak William 0.6 [ 100.0 - 120.0 ] cm/sec ESV 2D 58.5 [ 21.0 - 61.0 ] ml MV E/A 1.3 [ 0.8 - 1.5 ] ratio EF 2D 44.3 [ 52.0 - 72.0 ] percent MV Decel Time 204 [ 104 - 258 ] msec LA Dimen 2D 4.0 [ 3.0 - 4.0 ] cm Lat E` William 0.1 [ 10.0 - 15.0 ] cm/sec Lateral E/E` 11.9 [ 1.0 - 2.0 ] ratio MV E/A 1.3 [ 0.8 - 1.5 ] ratio TR Peak William 2.0 [ 100.0 - 280.0 ] cm/sec TR Peak PG 16.0 mmHg RVSP 19.0 [ 10.0 - 36.0 ] mmHg RA Pressure 3.0 mmHg Findings: Left Ventricle: Lower limits of normal systolic function. Normal left ventricular cavity size. Normal left ventricular wall thickness. Ejection fraction is visually estimated at 50 %. Right Ventricle: Normal right ventricular size. Normal right ventricular systolic function. Left Atrium: There is mild enlargement of left atrium. Right Atrium: The right atrium is normal in size. Mitral Valve: Mitral valve leaflets appear mildly thickened. Mild mitral annular calcification. Trace mitral regurgitation. Aortic Valve: No significant aortic stenosis or insufficiency. Aortic cusps appear mildly calcified. Tricuspid Valve: Normal appearance of the tricuspid valve. The estimated Peak RVSP is 19 mmHg. There is trace tricuspid regurgitation. Pulmonic Valve: Normal pulmonic valve appearance. Pericardium: Normal pericardium with no significant pericardial effusion. Aorta: Normal aortic root. IVC: Normal size and normal respiratory collapse consistent with normal right atrial pressure. Conclusions: Lower limits of normal systolic function. Normal left ventricular cavity size. Normal left ventricular wall thickness. Ejection fraction is visually estimated at 50 %. There is mild enlargement of left atrium. Mitral valve leaflets appear mildly thickened. Mild mitral annular calcification. Trace mitral regurgitation. Normal appearance of the tricuspid valve. The estimated Peak RVSP is 19 mmHg. There is trace tricuspid regurgitation. Electronically Signed By: Cristo Bonner 2018-11-20 13:18:21 PDT
[2018-11-20 15:47] VITALS: BP 154/88; PULSE 89; RESP 18
[2018-11-20 19:56] VITALS: BP 132/74; PULSE 96; RESP 20
[2018-11-20] MEDS: ATORVASTATIN 40 MG TAB PO SCH (21:39)
[2018-11-20] MEDS: INSULIN GLARGINE [LANTus] (100 UNITS/ML) SYG SC SCH (21:42)
[2018-11-21 00:08] VITALS: BP 124/79; PULSE 97; RESP 20
[2018-11-21 04:14] VITALS: BP 125/80; PULSE 85; RESP 20
--- NOTE | 2018-11-21 04:24 | HKNOTE ---
DATE OF SERVICE: HISTORY OF PRESENT ILLNESS: The patient is a 63-year-old status post right-sided weakness with the p atient having underlying hypertension, diabetes, dyslipidemia. CURRENT MEDICATIONS: 1. Plavix 75 mg once a day. 2. Aspirin 81 mg once a day. 3. Zestoretic 20 mg once a day. 4. Tradjenta 5 mg once a day. 5. Lipitor 40 mg once a day. 6. Protonix 40 mg once a day. 7. Glucophage 500 mg twice a day. 8. Toprol 100 mg once a day. PAST MEDICAL HISTORY: As above, includes hypertension, diabetes, dyslipidemia, coronary artery disea se, CABG. PHYSICAL EXAMINATION: GENERAL: Today, the patient is alert, awake, following simple commands. CRANIAL NERVES: Cranial nerve II: Pupils equal both sides, reactive to light. Cranial nerves III, IV and : Extraocular muscles are intact without nystagmus. Cranial nerve V: Equal sensation to f hosea. Cranial nerve VII: Decreased nasolabial fold on the right side. Cranial nerve VIII: Decrease d hearing bilaterally. Cranial nerve IX and X: Elevates palate. Cranial nerve XI: Elevates should er 5/5. Cranial nerve XII: With straight tongue. MOTOR: Right side 4+/5. SENSATION: Decreased on the right side for glove and sock area for light touch and temperature. COORDINATION: [id number] test intact with some weakness on the right side. HEART: Regular rate and rhythm. LUNGS: Equal breath sounds. ABDOMEN: Soft, relaxed, nondistended. No tenderness. ASSESSMENT AND PLAN: 1. The patient is 63 years old status post right hemiparesis. Follow up the patient with physical t herapy and rehabilitation. 2. Left subcortical stroke. Continue the patient on Plavix 75 mg once a day for stroke prophylaxis besides the aspirin. 3. Hypertension. Keep the blood pressure at the level of 140/90 to avoid any extension of the strok e. 4. Diabetes. Followup the patient's sliding scale insulin and Accu-Chek twice a day. 5. Keep the patient under deep venous thrombosis prophylaxis and decubitus ulcer prophylaxis. 6. Follow up the patient with fall precaution and gait balance. 7. Peripheral neuropathy, probably secondary to diabetes. Follow up in outpatient clinic. 8. Continue the patient with physical medicine and rehabilitation. Dictated By: HALIMA JACOB/FLAKITA Conf#: [id number] DID#: [id number] CC: DENY VELASQUEZ MD;*End*
[2018-11-21] MEDS: PANTOPRAZOLE (EC) 40 MG TAB PO SCH (06:34)
[2018-11-21] MEDS: INSULIN ASPART [NOVOLOG] 3 ML PEN SC SCH ×2 (06:50→12:10)
[2018-11-21] MEDS: ACCU-CHEK XX SCH ×2 (07:19→12:08)
[2018-11-21 07:47] VITALS: BP 118/74; PULSE 85; RESP 20
[2018-11-21] MEDS: CLOPIDOGREL 75 MG TAB PO SCH (08:12)
[2018-11-21] MEDS: LINAGLIPTIN 5 MG TABLET PO SCH (08:12)
[2018-11-21] MEDS: MUPIROCIN 2% 22 GM OINT TOP SCH (08:13)
[2018-11-21] MEDS: ASPIRIN 81 MG TAB PO SCH (08:13)
[2018-11-21] MEDS ORDERED: LISINOPRIL 10 MG TAB PO SCH (09:00)
[2018-11-21] MEDS ORDERED: METOPROLOL (XL) 50 MG TAB PO SCH (09:00)
--- NOTE | 2018-11-21 11:26 | CONS ---
Consult Date/Type/Reason Admit Date/Time Nov 18, 2018 at 18:14 Initial Consult Date Requesting Provider: DENY VELASQUEZ MD Date/Time of Note DATE: 11/21/18 TIME: 11:25 Subjective NO acute events - pt reasonably controlled - no CP -now - in good fluid status ROS: No fever, no chills, no nausea, no vomiting, no diarrhea/constipation No recent weight changes No chest pain, no PND, no orthopnea No dizziness, blurred vision No thirst, no heat or cold intolerance Objective Vitals Vital Signs Date Temp Pulse Resp B/P (MAP) Pulse Ox O2 O2 Flow FiO2 Time Delivery Rate 11/21/18 97.7 85 20 118/74 97 Room Air 07:47 (89) 11/18/18 2.0 22:00 Intake and Output 11/20/18 11/20/18 11/21/18 1515:00 23:00 07:00 IntakeIntake Total 700 ml OutputOutput Total 200 ml BalanceBalance 500 ml Exam General: WN/WD/NAD, AOx 3 HEENT: Unicetric/atraumatic/EOMI (follows commands) NECK: JVD elevated, no thyromegaly Lymph: no lymphadenopathy HEART: regular with no S3, II/ systolic murmur at apex, PMI L LUNGS: Coarse sounds ABD: soft, NT, ND, +BS : Intact Neuro: non focal SKIN: chronic changes EXT: trace edema Results/Medications Result Diagram: 11/20/1852511/20/18 05 Results 24 hrs Laboratory Tests Test 11/20/18 11:58 11/20/18 17:21 11/20/18 21:36 11/21/18 06:44 Bedside Glucose 252 H 181 201 254 H Home Meds Active Scripts Clindamycin Hcl* (Clindamycin Hcl*) 300 Mg Capsule, 300 MG PO Q6 for 14 Days, CAP Prov:DENY VELASQUEZ MD 11/18/16 Metformin Hcl (Glucophage) 500 Mg Tablet, 1000 MG PO BID WITH MEALS for 28 Days, TAB Prov:DENY VELASQUEZ MD 11/18/16 Linagliptin (TRADJENTA) 5 Mg Tablet, 5 MG PO DAILY for 28 Days, TAB Prov:DENY VELASQUEZ MD 11/18/16 Insulin Glargine* (Lantus*) 100 Unit/Ml Soln, 25 UNIT SC DAILY@20 for 28 Days Prov:DENY VELASQUEZ MD 11/18/16 Insulin Aspart* (Novolog Insulin Pen*) 100 Unit/Ml Soln, 10 UNIT SC WITH MEALS for 28 Days Prov:DEYN VELASQUEZ MD 11/18/16 Pantoprazole* (Pantoprazole*) 40 Mg Tablet.dr, 40 MG PO DAILY@06 for 14 Days Prov:DENY VELASQUEZ MD 11/18/16 L Acidophil/B Lactis/B Longum (FLORAJEN3 CAPSULE) 460 Mg Capsule, 1 EACH PO BID for 28 Days, CAP Prov:DENY VELASQUEZ MD 11/18/16 Metoprolol Succinate* (Toprol XL*) 100 Mg Tab.sr.24h, 100 MG PO DAILY for 28 Days Prov:DENY VELASQUEZ MD 11/18/16 Reported Medications Metformin Hcl* (Metformin Hcl*) 500 Mg Tablet, 500 MG PO WITH BREAKFAST, #30 TAB 10/22/15 Aspirin* (Aspirin* EC) 81 Mg Tablet.dr, 81 MG PO DAILY, TAB 10/22/15 Lisinopril* (Lisinopril*) 20 Mg Tablet, 20 MG PO DAILY, #30 TAB 10/22/15 Medications Current Medications Aspirin (Aspirin) 81 mg DAILY PO ; Start 11/19/18 at 09:00 Acetaminophen (Tylenol Tab) 650 mg Q6H PRN PO MILD PAIN(1-3)OR ELEVATED TEMP; Start 11/18/18 at 20:00 Diagnostic Test (Pha) (Accu-Chek) 1 ea AC MEALS XX Last administered on 11/21/18at 07:19; Admin Dose 1 EA; Start 11/19/18 at 07:00 Hydralazine HCl (Apresoline) 5 mg Q6H PRN IV SBP GREATER THAN 160; Start 11/18/18 at 20:00 Miscellaneous Information 1 ea NOTE XX ; Start 11/18/18 at 21:00 Glucose (Glutose) 15 gm Q15M PRN PO DECREASED GLUCOSE; Start 11/18/18 at 21:00 Glucose (Glutose) 22.5 gm Q15M PRN PO DECREASED GLUCOSE; Start 11/18/18 at 21:00 Dextrose (D50w Syringe) 25 ml Q15M PRN IV DECREASED GLUCOSE; Start 11/18/18 at 21:00 Dextrose (D50w Syringe) 50 ml Q15M PRN IV DECREASED GLUCOSE; Start 11/18/18 at 21:00 Glucagon (Glucagen) 1 mg Q15M PRN IM DECREASED GLUCOSE; Start 11/18/18 at 21:00 Glucose (Glutose) 15 gm Q15M PRN BUCCAL DECREASED GLUCOSE; Start 11/18/18 at 21:00 Linagliptin (Tradjenta) 5 mg DAILY PO Last administered on 11/21/18at 08:12; Admin Dose 5 MG; Start 11/19/18 at 14:30 Pantoprazole (Protonix Tab) 40 mg DAILY@06 PO Last administered on 11/21/18at 06:34; Admin Dose 40 MG; Start 11/20/18 at 06:00 Insulin Aspart (Novolog Insulin Pen) NOVOLOG *MILD* ALGORI... AC MEALS SC Last administered on 11/21/18at 06:50; Admin Dose 3 UNIT; Start 11/19/18 at 17:30 Atorvastatin Calcium (Lipitor) 40 mg HS PO Last administered on 11/20/18at 21:39; Admin Dose 40 MG; Start 11/19/18 at 21:00 Clopidogrel Bisulfate (plaVIX) 75 mg DAILY PO Last administered on 11/21/18at 08:12; Admin Dose 75 MG; Start 11/20/18 at 09:00 Mupirocin (Bactroban) 1 applic BID TOP Last administered on 11/21/18at 08:13; Admin Dose 1 APPLIC; Start 11/19/18 at 17:30 Insulin Glargine (Lantus) 12 units QHS SC Last administered on 11/20/18at 21:42; Admin Dose 12 UNITS; Start 11/19/18 at 21:00 Lisinopril (Zestril) 10 mg DAILY PO ; Start 11/21/18 at 09:00 Metoprolol Succinate (Toprol Xl) 50 mg DAILY PO ; Start 11/21/18 at 09:00 Imaging 1. Hypertension, mildly elevate-per neuro is to have mild permissive HTN>140/90 - better now, cont to monitor - CP free now 2. History of coronary artery disease, status post coronary artery bypass grafting with a known occlusion of one graft by catheterization 2015. Negative troponin x3 here. No chest pain. On meds. 3. Dyslipidemia statin Rx 4. Right arm weakness. Rule out acute cerebrovascular accident. Negative head CT at outside hospital. Now s/p MRI revealing acute CVA. No sig arrythmias noted on tele - neuro follows 5. Diabetes mellitus- on meds, keep euglycemic 6. Renal failure from outside hospital - good urine output now TOSHIA LUND MD Nov 21, 2018 11:26
[2018-11-21 12:18] VITALS: BP 124/58; PULSE 89; RESP 20
--- NOTE | 2018-11-21 15:07 | PN ---
Date/Time of Note Date/Time of Note DATE: 11/21/18 TIME: 15:04 Assessment/Plan VTE Prophylaxis [place] [facility] [place]: 3 [place]CD applied [place] [facility] [place] Yes Pharmacological prophylaxis: NA/contraindicated Pharm contraindication: low risk/ambulating Lines/Catheters [facility] Saline Lock Urinary Cath still in place: No Assessment/Plan Assessment/Plan 1 right arm weakness MRI brain 11/20/18 1. Acute, ischemic, infarcts in the left posterior frontal paige radiography and left external capsule 2. DM type II uncontrolled 3. Obesity 4. Hypertension 5. SIRS, source ? 6. Hx of 3 vessel heart bypass. 2003 7. hx of herniorrhaphy left 8. Injury of the right big toe 9. Hx of cellulitis 10. Chronic kidney disease. UA is negative CR 1.3 Assessment/Plan -CW ASA 81 and plavix 75 and atorvastatin 40 -Lisinopril and metoprolol per cardiology -Aggressive PT/OT -cwWith Lantus 12/Tradjenta. add mealtime insulin, increase lantus -Echo neg and carotid ultrasound negative -cardiology consult dr Bonner -neurology consult Dr Matthews transfer to ARU Result Diagram: 11/20/18 0511/20/18 05 Results 24hrs Laboratory Tests Test 11/20/18 17:21 11/20/18 21:36 11/21/18 06:44 11/21/18 12:06 Bedside Glucose 181 201 254 H 341 H Subjective 24 Hr Interval Summary Free Text/Dictation RUE weakness Exam/Review of Systems Exam Vitals Vital Signs Date Temp Pulse Resp B/P (MAP) Pulse Ox O2 O2 Flow FiO2 Time Delivery Rate 11/21/18 98.0 89 20 124/58 95 12:18 (80) 11/21/18 Room Air 07:47 11/18/18 2.0 22:00 Intake and Output 11/20/18 11/20/18 11/21/18 1515:00 23:00 07:00 IntakeIntake Total 700 ml OutputOutput Total 200 ml BalanceBalance 500 ml Exam nstitutional: alert, oriented Head: normocephalic Eyes: nl conjunctiva Neck: supple Respiratory: diminished breath sounds Cardiovascular: regular rate and rhythm Gastrointestinal: soft, surgical scars Musculoskeletal: muscle weakness (right arm) Results Results 24hrs Laboratory Tests Test 11/20/18 17:21 11/20/18 21:36 11/21/18 06:44 11/21/18 12:06 Bedside Glucose 181 201 254 H 341 H Medications Medication Current Medications Aspirin (Aspirin) 81 mg DAILY PO ; Start 11/19/18 at 09:00 Acetaminophen (Tylenol Tab) 650 mg Q6H PRN PO MILD PAIN(1-3)OR ELEVATED TEMP; Start 11/18/18 at 20:00 Diagnostic Test (Pha) (Accu-Chek) 1 ea AC MEALS XX Last administered on at 12:08; Admin Dose 1 EA; Start 11/19/18 at 07:00 Hydralazine HCl (Apresoline) 5 mg Q6H PRN IV SBP GREATER THAN 160; Start 11/18/18 at 20:00 Miscellaneous Information 1 ea NOTE XX ; Start 11/18/18 at 21:00 Glucose (Glutose) 15 gm Q15M PRN PO DECREASED GLUCOSE; Start 11/18/18 at 21:00 Glucose (Glutose) 22.5 gm Q15M PRN PO DECREASED GLUCOSE; Start 11/18/18 at 21:00 Dextrose (D50w Syringe) 25 ml Q15M PRN IV DECREASED GLUCOSE; Start 11/18/18 at 21:00 Dextrose (D50w Syringe) 50 ml Q15M PRN IV DECREASED GLUCOSE; Start 11/18/18 at 21:00 Glucagon (Glucagen) 1 mg Q15M PRN IM DECREASED GLUCOSE; Start 11/18/18 at 21:00 Glucose (Glutose) 15 gm Q15M PRN BUCCAL DECREASED GLUCOSE; Start 11/18/18 at 21:00 Linagliptin (Tradjenta) 5 mg DAILY PO Last administered on 11/21/18at 08:12; Admin Dose 5 MG; Start 11/19/18 at 14:30 Pantoprazole (Protonix Tab) 40 mg DAILY@06 PO Last administered on 11/21/18at 06:34; Admin Dose 40 MG; Start 11/20/18 at 06:00 Insulin Aspart (Novolog Insulin Pen) NOVOLOG *MILD* ALGORI... AC MEALS SC Last administered on 11/21/18at 12:10; Admin Dose 5 UNIT; Start 11/19/18 at 17:30 Atorvastatin Calcium (Lipitor) 40 mg HS PO Last administered on 11/20/18at 21:39; Admin Dose 40 MG; Start 11/19/18 at 21:00 Clopidogrel Bisulfate (plaVIX) 75 mg DAILY PO Last administered on 11/21/18at 08:12; Admin Dose 75 MG; Start 11/20/18 at 09:00 Mupirocin (Bactroban) 1 applic BID TOP Last administered on 11/21/18at 08:13; Admin Dose 1 APPLIC; Start 11/19/18 at 17:30 Insulin Glargine (Lantus) 12 units QHS SC Last administered on 11/20/18at 21:42; Admin Dose 12 UNITS; Start 11/19/18 at 21:00 Lisinopril (Zestril) 10 mg DAILY PO ; Start 11/21/18 at 09:00 Metoprolol Succinate (Toprol Xl) 50 mg DAILY PO ; Start 11/21/18 at 09:00 Miscellaneous Information (* Miscellaneous Pharmacy Order) Discontinue current oral sulfonylur... ONCE ONCE XX ; Start 11/21/18 at 15:30; Stop 11/21/18 at 15:31; Status UNV Diagnostic Test (Pha) (Accu-Chek) 1 ea XX ; Start 11/22/18 at 02:00; Status UNV Insulin Aspart (Novolog Insulin Pen) 4 unit WITH MEALS SC ; Start 11/21/18 at 18:00; Status UNV Miscellaneous Information (* Miscellaneous Pharmacy Order) HYPOGLYCEMIA PROTOCOL w... ONCE ONCE XX ; Start 11/21/18 at 15:30; Stop 11/21/18 at 15:31; Status UNV Miscellaneous Information (* Miscellaneous Pharmacy Order) Discontinue all previ... ONCE ONCE XX ; Start 11/21/18 at 15:30; Stop 11/21/18 at 15:31; Status UNV JAMES WILLIS MD Nov 21, 2018 15:07
--- NOTE | 2018-11-21 15:11 | PDOCDIS ---
Discharge Instructions DIAGNOSIS Discharge Diagnosis Stroke CONDITION [id number] Patient Condition: [id number] Fair HOME CARE INSTRUCTIONS: [id number] Diet Instructions: Sokmr7w Modified Fat [id number] Special Diet: Rsodh4u carb controlled ACTIVITY: [id number] Activity Restrictions: [id number] Slowly Increase Activity Rest between Activity Avoid heavy lifting FOLLOW UP/APPOINTMENTS Follow-up Plan fu Neurology in 1 week JAMES WILLIS MD Nov 21, 2018 15:11
[2018-11-21 16:22] VITALS: BP 143/81; PULSE 91; RESP 20
[2018-11-21] MEDS ORDERED: INSULIN ASPART [NOVOLOG] 3 ML PEN SC SCH (18:00)
[2018-11-21] MEDS ORDERED: INSULIN GLARGINE [LANTus] (100 UNITS/ML) SYG SC SCH (21:00)
[2018-11-22] MEDS ORDERED: ACCU-CHEK XX SCH (02:00)
--- NOTE | 2018-11-24 03:38 | DS ---
DATE OF ADMISSION: 11/18/2018 DATE OF DISCHARGE: 11/21/2018 HISTORY OF PRESENT ILLNESS AND HOSPITAL COURSE: This is a 63-year-old male with a past medical histo ry of diabetes, obesity, coronary artery disease, hypertension, coronary artery bypass, who presente d to the emergency department 2 days ago. Patient woke up and felt weakness on the right arm. On ad mission, white count was 5.7, hemoglobin 14.7, sodium 136, potassium 4.6, chloride 102, bicarb 19, BU N of 20, creatinine 1.31. Troponin was negative. The patient had a CT of the head that showed no ac [place] intracranial hemorrhage. The patient was also seen by cardiology consultation with Dr. Bonner. Negative troponin here. The patient did not have any chest pain. The patient was seen by neurology consultation with Dr. Salguero. Had MRI of the brain that showed acute ischemic infarction of the left posterior frontal paige radiata, left external capsule. Patient also had a carotid Doppler whi ch was negative. The patient was seen by cardiology consultation. Recommendations were followed. N eurology consultation, their recommendations were followed. The patient was started on aspirin and P lavix 75, and atorvastatin. Lisinopril and metoprolol were adjusted per cardiology. Insulin was al so adjusted. The patient was added mealtime insulin. Patient was seen by physical therapy who recom mended the patient to go to ARU. Currently, patient is being transferred to ARU for stroke. FINAL DISCHARGE DIAGNOSES: 1. Acute ischemic infarcts in the left posterior frontal paige radiata, left external capsule. 2. Diabetes. 3. Obesity. 4. Hypertension. 5. Systemic inflammatory response syndrome. 6. History of 3-vessel bypass. 7. History of herniorrhaphy on the left. 8. History of right big toe. 9. History of cellulitis. 10. History of chronic kidney disease. DISCHARGE CONDITION: Stable. Dictated By: JAMES HERNANDEZ/FLAKITA Conf#: [id number] DID#: [id number]
--- NOTE | 2018-11-25 16:15 | RADRPT ---
Vent Rate: 82 bpm RR Interval: 728 msec AL Interval: 172 msec QRS Duration: 97 msec QT Interval: 413 msec QTC Interval: 484 msec P-R-T [place]: 29 - -36 - -89 degrees Sinus rhythm...normal P axis, V-rate 50- 99 Left axis deviation...QRS axis (-30,-90) Abnormal T, consider ischemia, diffuse leads...T <-0.20mV, ant/lat/inf Electronically Signed By: Jerry Bhakta
== END 2018-11-21 16:43 | DRG 66 ==
LOC: 6WM 18:14
PROVIDERS: ADMIT Internal Medicine Nephrology; ATTEND Internal Medicine Nephrology
DX: I63.9 Cerebral infarction, unspecified (principal); E11.22 Type 2 diabetes mellitus with diabetic chronic kidney disease; E11.42 Type 2 diabetes mellitus with diabetic polyneuropathy; I10 Essential (primary) hypertension; I12.9 Hypertensive chronic kidney disease with stage 1 through stage 4 chronic kidney disease, or unspecified chronic kidney disease; N18.9 Chronic kidney disease, unspecified; I25.10 Atherosclerotic heart disease of native coronary artery without angina pectoris; E78.5 Hyperlipidemia, unspecified; E66.9 Obesity, unspecified; Z68.30 Body mass index [BMI] 30.0-30.9, adult; Z79.4 Long term (current) use of insulin; Z79.82 Long term (current) use of aspirin; Z95.1 Presence of aortocoronary bypass graft
CPT/HCPCS: 70551; 80048; 80061; 82962; 83036; 84484; 85025; 92526; 92610; 93005; 93306; 93880; 95819; 97116; 97161; 97167; 97530; C9113; J1815; J7042

== ENCOUNTER 2018-11-21 16:36 | Inpatient (IN) | payer BC ==
[~2018-11-21] VITALS: Ht 165.1 cm; Wt 82.2 kg
[2018-11-21 17:00] VITALS: BP 135/92; PULSE 91; RESP 18
[2018-11-21] MEDS ORDERED: PENDING SANTYL ORDER FOR WOUND CARE XX PRN (17:30)
[2018-11-21] MEDS ORDERED: BISACODYL 10 MG SUPP PR PRN (17:30)
[2018-11-21] MEDS ORDERED: MAGNESIUM HYDROXIDE 30ML CUP PO PRN (17:30)
[2018-11-21] MEDS ORDERED: LACTULOSE 30ML CUP PO PRN (17:30)
[2018-11-21] MEDS ORDERED: ACETAMINOPHEN 325 MG TAB PO PRN (17:30)
[2018-11-21] MEDS ORDERED: GLUCOSE GEL 15 GRAM TUBE PO PRN ×2 (18:00)
[2018-11-21] MEDS ORDERED: GLUCAGON 1 MG INJ IM PRN (18:00)
[2018-11-21] MEDS ORDERED: hydrALAzine 20 MG INJ IV PRN (18:00)
[2018-11-21 20:00] VITALS: BP 155/72; PULSE 100; RESP 18
[2018-11-21] MEDS: INSULIN ASPART [NOVOLOG] 3 ML PEN SC SCH (21:00)
[2018-11-21] MEDS: INSULIN GLARGINE [LANTus] (100 UNITS/ML) SYG SC SCH (21:01)
[2018-11-21] MEDS: ACCU-CHEK XX SCH (21:01)
[2018-11-21] MEDS: MUPIROCIN 2% 22 GM OINT TOP SCH (21:01)
[2018-11-21] MEDS: DOCUSATE SODIUM 100 MG CAP PO SCH (21:02)
[2018-11-21] MEDS: SENNA TAB PO SCH (21:02)
[2018-11-21] MEDS: ATORVASTATIN 40 MG TAB PO SCH (21:02)
[2018-11-22] MEDS: ACCU-CHEK XX SCH ×5 (02:30→21:31)
--- NOTE | 2018-11-22 03:04 | HKNOTE ---
DATE OF SERVICE: HISTORY OF PRESENT ILLNESS: The patient is 63 years old with underlying diabetes, hypertension, stro ke, right-sided weakness. PHYSICAL EXAMINATION: GENERAL: The patient is alert, awake, oriented, follows simple commands. CRANIAL NERVES: Cranial nerve II: Pupils equal on both sides, reactive to light. Cranial nerves II I, IV and : Extraocular muscles are intact without nystagmus. Cranial nerve V: Equal sensation t o face. Cranial nerve VII: Decreased nasolabial fold on the right side. Cranial nerve VIII: Decre ased hearing bilaterally. Cranial nerves IX and X: Elevates palate. Cranial nerve XI: Elevates sh oulder 5/5. Cranial nerve XII: With straight tongue. MOTOR: Decreased right hand city surveyor 4+/5. SENSATION: Decreased for glove and sock area for light touch and temperature. COORDINATION: Eqakny-jf-moub test intact. HEART: Regular rate and rhythm. LUNGS: Equal breath sounds. ASSESSMENT AND PLAN: 1. The patient is 63 years old with right-sided weakness with underlying cerebrovascular accident, t ransient ischemic attack. Continue the patient on Plavix 75 mg once a day. 2. Underlying subcortical stroke, in which follow up the patient with physical therapy. 3. Hypertension. Keep the blood pressure at the level of 140/90. 4. Diabetes. Follow up the patient's sliding scale insulin and Accu-Chek. 5. Keep the patient on deep venous thrombosis prophylaxis and decubitus ulcer prophylaxis. 6. Underlying peripheral neuropathy, probably secondary to diabetes. 7. Continue the patient on physical therapy. Dictated By: HALIMA JACOB/FLAKITA Conf#: [id number] DID#: [id number] CC: JAMES WILLIS;*EndCC*
[2018-11-22] MEDS: PANTOPRAZOLE (EC) 40 MG TAB PO SCH (05:56)
--- NOTE | 2018-11-22 07:01 | CONS ---
DATE OF ADMISSION: 11/21/2018 DATE OF CONSULTATION: 11/21/2018 Patient is 63 years old. EEG done using 10-20 [employer] electrode system. Bilateral occipital h emisphere view showed alpha wave 8 to 9 Hz, medium sized, low amplitude, asymmetric bilateral. No ep ileptiform discharge or seizure activity is recorded. Some electromyogram artifact is recorded. No epileptiform discharge. IMPRESSION: This is a normal electroencephalogram. Normal electroencephalogram does not exclude a c linical history of seizure. Followup EEG may be needed if clinically indicated. Again, thank you for asking me to see the patient with you. Dictated By: HALIMA JACOB/NTS Conf#: [id number] DID#: [id number]
[2018-11-22 07:30] VITALS: BP 144/81; PULSE 80; RESP 20
[2018-11-22] MEDS: INSULIN ASPART [NOVOLOG] 3 ML PEN SC SCH ×7 (08:23→21:26)
[2018-11-22] MEDS: LINAGLIPTIN 5 MG TABLET PO SCH (08:30)
[2018-11-22] MEDS: ASPIRIN 81 MG TAB PO SCH (08:32)
[2018-11-22] MEDS: LISINOPRIL 10 MG TAB PO SCH (08:32)
[2018-11-22] MEDS: CLOPIDOGREL 75 MG TAB PO SCH (08:32)
[2018-11-22] MEDS: DOCUSATE SODIUM 100 MG CAP PO SCH ×2 (08:32→21:26)
[2018-11-22] MEDS: MUPIROCIN 2% 22 GM OINT TOP SCH ×2 (08:33→21:26)
[2018-11-22] MEDS: METOPROLOL (XL) 50 MG TAB PO SCH (08:33)
[2018-11-22 14:00] VITALS: BP 103/64; PULSE 78; RESP 18
--- NOTE | 2018-11-22 14:44 | QN ---
Documentation Comment Pt seen and examined JAMES WILLIS MD Nov 22, 2018 14:44
--- NOTE | 2018-11-22 17:06 | CONS ---
Assessment/Plan Assessment/Plan Hospital Course (Demo Recall) IMPRESSION: 1. Hypertension-reasonable control 2. History of coronary artery disease, status post coronary artery bypass grafting with a known occlusion of one graft by catheterization 2016. Negative troponin x3 here. No chest pain.-Echo EF 50%, no sig valve abnl 3. Dyslipidemia. 4. Right arm weakness. Rule out acute cerebrovascular accident. Negative head CT at outside hospital. Now s/p MRI revealing acute CVA. No sig arrythmias noted on tele 5. Diabetes mellitus. 6. Renal failure from outside hospital. Recc: -Now in rehab -Contineu current BB/ACEI and follow BP clsoely with currently reasonble BP control -Continue asa/plavix -continue statin -PT/OT Consultation Date/Type/Reason Admit Date/Time Nov 21, 2018 at 16:58 Initial Consult Date 11/22/18 Type of Consult Cardiology Reason for Consultation HTN Requesting Provider: JAMES WILLIS MD Date/Time of Note DATE: 11/22/18 TIME: 17:03 Exam/Review of Systems Vital Signs Vitals Vital Signs Date Temp Pulse Resp B/P (MAP) Pulse Ox O2 O2 Flow FiO2 Time Delivery Rate 11/22/18 97.6 78 18 103/64 95 Room Air 14:00 (77) Intake and Output 11/21/18 11/21/18 11/22/18 1515:00 23:00 07:00 OutputOutput Total 250 ml 400 ml BalanceBalance -250 ml -400 ml Exam Exam Review of Systems: CONSTITUTIONAL: No fevers, chills. PULMONARY: No sob CARDIOVASCULAR: No chest pain/palpitations GASTROINTESTINAL: No nausea/vomiting. GENITOURINARY: No hematuria/dysuria. MUSCULOSKELETAL: No myagias/arthalgias. PSYCHIATRIC: The patient denies depression. NEUROLOGIC: RUE weakness Constitutional: alert Psych: no complaints Head: normocephalic ENMT: mucosa pink and moist Neck: supple, jvd (9 cm water) Respiratory: diminished breath sounds Cardiovascular: regular rate and rhythm Gastrointestinal: soft, non-tender Musculoskeletal: muscle weakness (RUE) Extremities: edema (none) Neurological: focal weakness (RUE) Labs Result Diagram: 11/22/18 0623 11/22/18 0623 Results 24hrs Laboratory Tests Test 11/21/18 17:18 11/21/18 20:56 11/22/18 02:28 11/22/18 06:23 Bedside Glucose 167 268 H 241 H White Blood Count 4.6 L Red Blood Count 5.51 Hemoglobin 14.3 Hematocrit 44.1 Mean Corpuscular 80.0 L Volume Mean Corpuscular 26.0 L Hemoglobin Mean Corpuscular 32.4 Hemoglobin Concent Red Cell 14.6 H Distribution Width Platelet Count 202 Mean Platelet Volume 10.0 Immature 0.700 H Granulocytes % Neutrophils % 56.4 Lymphocytes % 28.9 Monocytes % 9.6 Eosinophils % 3.7 Basophils % 0.7 Nucleated Red Blood 0.0 Cells % Immature 0.030 Granulocytes # Neutrophils # 2.6 Lymphocytes # 1.3 Monocytes # 0.4 Eosinophils # 0.2 Basophils # 0.0 Nucleated Red Blood 0.0 Cells # Sodium Level 139 Potassium Level 4.5 Chloride Level 105 Carbon Dioxide Level 25 Anion Gap 9 Blood Urea Nitrogen 29 H Creatinine 1.19 Est Glomerular > 60 Filtrat Rate mL/min Glucose Level 256 H Calcium Level 9.4 Total Bilirubin 0.6 Direct Bilirubin 0.00 Indirect Bilirubin 0.6 Aspartate Amino 21 Transf (AST/SGOT) Alanine 22 Aminotransferase (AL T/SGPT) Alkaline Phosphatase 56 Total Protein 7.4 Albumin 3.9 Globulin 3.50 H Albumin/Globulin 1.11 Ratio Test 11/22/18 08:04 11/22/18 11:59 11/22/18 13:37 Bedside Glucose 238 H 176 Urine Color YELLOW Urine Clarity CLEAR Urine pH 5.0 Urine Specific 1.017 [place] Urine Ketones NEGATIVE Urine Nitrite NEGATIVE Urine Bilirubin NEGATIVE Urine Urobilinogen NEGATIVE Urine Leukocyte NEGATIVE Esterase Urine Microscopic 1 RBC Urine Microscopic 0 WBC Urine Hemoglobin 1+ H Urine Glucose 1+ H Urine Total Protein 3+ H Medications Medications Current Medications Docusate Sodium (Colace) 100 mg BID PO Last administered on 11/22/18at 08:32; Admin Dose 100 MG; Start 11/21/18 at 21:00 Senna (Senokot) 1 tab HS PO Last administered on 11/21/18at 21:02; Admin Dose 1 TAB; Start 11/21/18 at 21:00 Magnesium Hydroxide (Milk Of Mag) 30 ml BID PRN PO CONSTIPATION; Start 11/21/18 at 17:30 Lactulose (Enulose) 20 gm DAILY PRN PO CONSTIPATION; Start 11/21/18 at 17:30 Bisacodyl (Dulcolax Supp) 10 mg DAILY PRN ID CONSTIPATION; Start 11/21/18 at 17:30 Acetaminophen (Tylenol Tab) 650 mg Q4H PRN PO PAIN Last administered on 11/21/18at 22:19; Admin Dose 650 MG; Start 11/21/18 at 17:30 Miscellaneous Information (Pending Santyl Order For Wound Care) This patient bates... PRN PRN XX WOUND CARE; Start 11/21/18 at 17:30 Diagnostic Test (Pha) (Accu-Chek) 1 ea 02 XX Last administered on 11/22/18at 02: 30; Admin Dose 1 EA; Start 11/22/18 at 02:00 Insulin Glargine (Lantus) 15 units DAILY@2000 SC Last administered on 11/21/18at 21:01; Admin Dose 15 UNITS; Start 11/21/18 at 20:00 Insulin Aspart (Novolog Insulin Pen) 4 unit WITH BREAKFAST SC Last administered on 11/22/18at 08:23; Admin Dose 4 UNIT; Start 11/22/18 at 07:35 Insulin Aspart (Novolog Insulin Pen) 4 unit WITH LUNCH SC Last administered on 11/22/18at 12:05; Admin Dose 4 UNIT; Start 11/22/18 at 12:00 Insulin Aspart (Novolog Insulin Pen) 4 unit WITH DINNER SC ; Start 11/22/18 at 17:35 Insulin Aspart (Novolog Insulin Pen) NOVOLOG *MILD* ALGORITHM WITH MEALS BEDTIME SC Last administered on 11/22/18at 12:08; Admin Dose 1 UNIT; Start 11/21/18 at 21:00 Glucagon (Glucagen) 1 mg PRN PRN IM DECREASED GLUCOSE; Start 11/21/18 at 18:00 Glucose (Glutose) 15 gm PRN PRN PO DECREASED GLUCOSE; Start 11/21/18 at 18:00 Glucose (Glutose) 22.5 gm PRN PRN PO DECREASED GLUCOSE; Start 11/21/18 at 18:00 Aspirin (Aspirin) 81 mg DAILY PO Last administered on 11/22/18at 08:32; Admin Dose 81 MG; Start 11/22/18 at 09:00 Atorvastatin Calcium (Lipitor) 40 mg HS PO Last administered on 11/21/18at 21:02; Admin Dose 40 MG; Start 11/21/18 at 21:00 Clopidogrel Bisulfate (plaVIX) 75 mg DAILY PO Last administered on 11/22/18at 08:32; Admin Dose 75 MG; Start 11/22/18 at 09:00 Hydralazine HCl (Apresoline) 5 mg Q6H PRN IV ELEVATED BLOOD PRESSURE; Start 11/21/18 at 18:00 Linagliptin (Tradjenta) 5 mg DAILY PO Last administered on 11/22/18at 08:30; Admin Dose 5 MG; Start 11/22/18 at 09:00 Diagnostic Test (Pha) (Accu-Chek) 1 ea AC MEALS AND BEDTIME XX Last administered on 11/21/18at 21:01; Admin Dose 1 EA; Start 11/21/18 at 21:00 Lisinopril (Zestril) 10 mg DAILY PO Last administered on 11/22/18at 08:32; Admin Dose 10 MG; Start 11/22/18 at 09:00 Metoprolol Succinate (Toprol Xl) 50 mg DAILY PO Last administered on 11/22/18at 08:33; Admin Dose 50 MG; Start 11/22/18 at 09:00 Mupirocin (Bactroban) 1 applic BID TOP Last administered on 11/22/18at 08:33; Admin Dose 1 APPLIC; Start 11/21/18 at 21:00 Pantoprazole (Protonix Tab) 40 mg DAILY@06 PO Last administered on 11/22/18at 05:56; Admin Dose 40 MG; Start 11/22/18 at 06:00 JUDAH SU 17, 2019 17:06
[2018-11-22] MEDS: BALSAM PERU/CASTOR OIL 60 GM TUBE TOP SCH (17:58)
[2018-11-22 19:03] VITALS: BP 140/77; PULSE 82; RESP 18
--- NOTE | 2018-11-22 20:28 | CONS ---
DATE OF ADMISSION: 11/21/2018 DATE OF CONSULTATION: 11/22/2018 REHABILITATION POST ADMISSION PHYSICIAN EVALUATION REHABILITATION IMPAIRMENT CATEGORY: 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 ACTIVE COMORBIDITIES: 1. Hypertension. 2. Coronary artery disease. 3. CABG. 4. Hyperlipidemia. 5. Diabetes mellitus type 2. 6. Acute on chronic kidney disease. 7. Impairments in self-care, mobility, and mild cognition. HISTORY OF PRESENT ILLNESS: The patient is a very pleasant 63-year-old right- handed gentleman who had noted right-sided weakness for which he presented to [facility]. A head CT was negative for acute bleed. The patient was transferred to [facility] where he was noted to have hypertension, sinus tachycardia, in addition to acute ischemic infarcts in the frontal, paige radiata, left external capsule by MRI. The patient was also noted to have significant impairments in self-care and mobility as compared to baseline, and was cleared to transfer to the rehabilitation unit for comprehensive interdisciplinary rehab care. FUNCTIONAL HISTORY: Prior to recent events, he was independent in self-care tasks and mobility. Currently, he requires maximal assist for upper body self- care activities and minimal moderate assist for mobility tasks. I have reviewed the preadmission screen and patient's current functional status is consistent with the preadmission screen. FAMILY AND SOCIAL HISTORY: The patient lives at home and hopes to return there upon discharge. PAST MEDICAL HISTORY: 1. Coronary artery disease with history of coronary artery bypass graft. 2. Diabetes mellitus type 2. 3. Hypertension. 4. Chronic kidney disease. 5. History of hernia repair. CURRENT MEDICATIONS: 1. Aspirin 81 mg p.o. daily. 2. Lipitor 40 mg p.o. at bedtime. 3. Plavix 75 mg p.o. daily. 4. Insulin sliding scale. 5. Lantus 15 units subq daily. 6. Tradjenta 5 mg p.o. daily. 7. Zestril 10 mg p.o. daily. 8. Toprol-XL 50 mg p.o. daily. 9. Protonix 40 mg p.o. daily. 10. NovoLog 4 units subQ before meals. ALLERGIES: IODINE. PHYSICAL EXAMINATION: VITAL SIGNS: The patient is currently afebrile with stable vital signs. HEENT: Extraocular motions are intact. Oropharynx clear. NECK: Supple. LUNGS: Clear anteriorly. CARDIAC: S1, S2. ABDOMEN: Soft, nontender, positive bowel sounds. NEUROLOGIC: He is awake and alert. He is oriented x3. He will follow simple 1-step commands. He demonstrates good strength in the left upper and lower extremity. He has 2+ strength in the right upper extremity, 4- strength in the right lower extremity. PLAN: The patient has been admitted for comprehensive interdisciplinary acute rehab and is anticipated to tolerate 3 hours of daily therapy in divided doses for at least 5/7 days a week. The treatment plan will include: 1. Physical therapy to focus on bed mobility, transfers, and household ambulation with the goal of having the patient reach a standby assist level. 2. Occupational therapy to focus on hygiene, grooming, dressing, bathing, and toileting activities with the goal of having the patient reach a standby assist level. 3. Speech therapy for full cognitive assessment and retraining with the goal of having the patient return to baseline cognition. 4. Rehabilitation nursing for carryover of therapeutic interventions, the goal of continent of bowel and bladder, and the goal of patient education with regards to the aforementioned issues. ESTIMATED LENGTH OF STAY: 14 days. DISPOSITION GOAL: Home with assistance. REHABILITATION BARRIER: Weakness. INTERVENTION FOR BARRIER: Interdisciplinary approach. I acknowledge that I performed a full physical examination on this patient within 24 hours of admission to the rehabilitation unit. I believe the patient is a good candidate for comprehensive interdisciplinary rehab care and is anticipated to make reasonable goals in a reasonable period of time as outlined above. Dictated By: NEHA CR/FLAKITA Conf#: [id number] DID#: [id number] CC: JAMES WILLIS;*EndCC* MTDD
[2018-11-22] MEDS: ATORVASTATIN 40 MG TAB PO SCH (21:26)
[2018-11-22] MEDS: INSULIN GLARGINE [LANTus] (100 UNITS/ML) SYG SC SCH (21:26)
[2018-11-22] MEDS: SENNA TAB PO SCH (21:26)
[2018-11-23 02:00] VITALS: BP 132/68; PULSE 85; RESP 18
[2018-11-23] MEDS: ACCU-CHEK XX SCH ×5 (02:07→20:49)
--- NOTE | 2018-11-23 03:49 | HKNOTE ---
DATE OF SERVICE: HISTORY OF PRESENT ILLNESS: The patient is a 63-year-old status post left subcortical stroke with r ight-sided weakness, for which I recommend the patient to have physical therapy and follow up the pat ient with acute rehabilitation. CURRENT MEDICATIONS: 1. Aspirin 81 mg once a day. 2. Lipitor 40 mg once a day. 3. Plavix 75 mg once a day. 4. Insulin sliding scale. 5. Lantus 15 units once a day. 6. Tradjenta 5 mg once a day. 7. Zestoretic 20 mg once a day. 8. Toprol-XL 50 mg once a day. 9. Protonix 40 mg once a day. 10. NovoLog 4 units subcutaneous. PAST MEDICAL HISTORY: Includes coronary artery disease, diabetes type 2, hypertension, chronic kidne y disease, hernia repair. PHYSICAL EXAMINATION: GENERAL: The patient is alert, awake, oriented. CRANIAL NERVES: Cranial nerve II: Pupils equal on both sides, reactive to light. Cranial nerves II I, IV and : Extraocular muscles are intact without nystagmus. Cranial nerve V: Equal sensation t o face. Cranial nerve VII: Symmetrical face. Cranial nerve VIII: Decreased hearing bilaterally. Cranial nerve IX and X: Elevates palate. Cranial nerve XI: Elevates shoulder 5/5. Cranial nerve X II: With straight tongue. MOTOR: Left side 4+/5. SENSATION: Decreased for glove and sock area for light touch and temperature. COORDINATION: [id number] test intact. HEART: Regular rate and rhythm. LUNGS: Equal breath sounds. ABDOMEN: Soft, relaxed, nondistended, no tenderness. ASSESSMENT AND PLAN: 1. The patient is a 63-year-old status post left subcortical stroke. Continue the patient's aspirin 81 mg as well as Plavix 75 mg. 2. Continue the patient on physical therapy for bed mobility, transfer, ambulation, assisting level. 3. Occupational therapy. Follow up the patient with a hygiene, grooming, bathing, toileting, activi ties, dressing. 4. Follow up the patient with speech therapy for cognitive improvement. 5. Diabetes. Keep the patient on sliding scale insulin and Accu-Chek twice a day. 6. Hypertension. Keep the blood pressure level 140/90 or less to avoid any extension of the stroke. 7. Dyslipidemia. Continue the patient's Lipitor 40 mg once a day. Dictated By: HALIMA JACOB/FLAKITA Conf#: [id number] DID#: [id number] CC: JAMES WILLIS;*EndCC*
[2018-11-23] MEDS: PANTOPRAZOLE (EC) 40 MG TAB PO SCH (05:35)
[2018-11-23 07:30] VITALS: BP 123/78; PULSE 80; RESP 18
[2018-11-23] MEDS: INSULIN ASPART [NOVOLOG] 3 ML PEN SC SCH ×7 (08:02→20:41)
[2018-11-23] MEDS: LINAGLIPTIN 5 MG TABLET PO SCH (08:15)
[2018-11-23] MEDS: CLOPIDOGREL 75 MG TAB PO SCH (08:18)
[2018-11-23] MEDS: MUPIROCIN 2% 22 GM OINT TOP SCH ×2 (08:18→21:50)
[2018-11-23] MEDS: DOCUSATE SODIUM 100 MG CAP PO SCH ×2 (08:19→20:48)
[2018-11-23] MEDS: BALSAM PERU/CASTOR OIL 60 GM TUBE TOP SCH (08:20)
[2018-11-23] MEDS: ASPIRIN 81 MG TAB PO SCH (08:20)
[2018-11-23] MEDS: METOPROLOL (XL) 50 MG TAB PO SCH ×2 (08:21→13:25)
[2018-11-23] MEDS: LISINOPRIL 10 MG TAB PO SCH ×2 (08:22→13:25)
--- NOTE | 2018-11-23 12:03 | PN ---
Date/Time of Note Date/Time of Note DATE: 11/23/18 TIME: 11:59 Objective Vital Signs Date Temp Pulse Resp B/P (MAP) Pulse Ox O2 O2 Flow FiO2 Time Delivery Rate 11/23/18 97.6 80 18 123/78 96 Room Air 07:30 (93) Intake and Output 11/22/18 11/22/18 11/23/18 1515:00 23:00 07:00 IntakeIntake Total 240 ml 800 ml 550 ml OutputOutput Total 540 ml BalanceBalance 240 ml 260 ml 550 ml Exam INTERDISCIPLINARY TEAM CONFERENCE Attended by PT, OT, ST, Social Work, Rehabilitation Nursing, Budget Counselor and Pipe Line GaugerHead Of Loss Prevention Exam: Pulm- cta Abd- soft BOWEL- Cont BLADDER-Cont SKIN- improving OT- DRESSING- cga/min BATHING- min TOILETING- min PT- BED MOBILITY- min/mod TRANSFERS- min AMBULATION- min 30 feet SPEECH- COGNITION- Patient with notable deficits in safety awareness and some cognitive deficits, however he declined formal speech cognitive evaluation. Speech will meet with patient and family to attempt further cognitive evaluation and to provide family education. A/P- Interdisciplinary team conference held today. Please see interdisciplinary sheet. Working toward d.c. on 12/01 with post discharge follow up of physical therapy, occupational therapy. Results/Medications Result Diagram: 11/22/1862211/22/18 0623 Results 24 hrs Laboratory Tests Test 11/22/18 13:37 11/22/18 17:05 11/22/18 21:22 11/23/18 02:05 Urine Color YELLOW Urine Clarity CLEAR Urine pH 5.0 Urine Specific 1.017 [place] Urine Ketones NEGATIVE Urine Nitrite NEGATIVE Urine Bilirubin NEGATIVE Urine Urobilinogen NEGATIVE Urine Leukocyte NEGATIVE Esterase Urine Microscopic 1 RBC Urine Microscopic 0 WBC Urine Hemoglobin 1+ H Urine Glucose 1+ H Urine Total Protein 3+ H Bedside Glucose 214 276 H 281 H Test 11/23/18 07:51 11/23/18 11:53 Bedside Glucose 236 H 227 H Medications Current Medications Docusate Sodium (Colace) 100 mg BID PO Last administered on 11/23/18at 08:19; Admin Dose 100 MG; Start 11/21/18 at 21:00 Senna (Senokot) 1 tab HS PO Last administered on 11/22/18at 21:26; Admin Dose 1 TAB; Start 11/21/18 at 21:00 Magnesium Hydroxide (Milk Of Mag) 30 ml BID PRN PO CONSTIPATION Last administered on 11/23/18at 00:38; Admin Dose 30 ML; Start 11/21/18 at 17:30 Lactulose (Enulose) 20 gm DAILY PRN PO CONSTIPATION; Start 11/21/18 at 17:30 Bisacodyl (Dulcolax Supp) 10 mg DAILY PRN GA CONSTIPATION; Start 11/21/18 at 17:30 Acetaminophen (Tylenol Tab) 650 mg Q4H PRN PO PAIN Last administered on 11/21/18at 22:19; Admin Dose 650 MG; Start 11/21/18 at 17:30 Miscellaneous Information (Pending Santyl Order For Wound Care) This patient bates. .. PRN PRN XX WOUND CARE; Start 11/21/18 at 17:30 Diagnostic Test (Pha) (Accu-Chek) 1 ea 02 XX Last administered on 11/23/18at 02:07; Admin Dose 1 EA; Start 11/22/18 at 02:00 Insulin Glargine (Lantus) 15 units DAILY@2000 SC Last administered on 11/22/18at 21:26; Admin Dose 15 UNITS; Start 11/21/18 at 20:00 Insulin Aspart (Novolog Insulin Pen) 4 unit WITH BREAKFAST SC Last administered on 11/23/18at 08:04; Admin Dose 4 UNIT; Start 11/22/18 at 07:35 Insulin Aspart (Novolog Insulin Pen) 4 unit WITH LUNCH SC Last administered on 11/22/18at 12:05; Admin Dose 4 UNIT; Start 11/22/18 at 12:00 Insulin Aspart (Novolog Insulin Pen) 4 unit WITH DINNER SC Last administered on 11/22/18at 17:12; Admin Dose 4 UNIT; Start 11/22/18 at 17:35 Insulin Aspart (Novolog Insulin Pen) NOVOLOG *MILD* ALGORITHM WITH MEALS BEDTIME SC Last administered on 11/23/18at 08:02; Admin Dose 3 UNIT; Start 11/21/18 at 21:00 Glucagon (Glucagen) 1 mg PRN PRN IM DECREASED GLUCOSE; Start 11/21/18 at 18:00 Glucose (Glutose) 15 gm PRN PRN PO DECREASED GLUCOSE; Start 11/21/18 at 18:00 Glucose (Glutose) 22.5 gm PRN PRN PO DECREASED GLUCOSE; Start 11/21/18 at 18:00 Aspirin (Aspirin) 81 mg DAILY PO Last administered on 11/23/18 08:20; Admin Dose 81 MG; Start 11/22/18 at 09:00 Atorvastatin Calcium (Lipitor) 40 mg HS PO Last administered on 11/22/18 21:26; Admin Dose 40 MG; Start 11/21/18 at 21:00 Clopidogrel Bisulfate (plaVIX) 75 mg DAILY PO Last administered on 11/23/18 08:18; Admin Dose 75 MG; Start 11/22/18 at 09:00 Hydralazine HCl (Apresoline) 5 mg Q6H PRN IV ELEVATED BLOOD PRESSURE; Start 11/21/18 at 18:00 Linagliptin (Tradjenta) 5 mg DAILY PO Last administered on 11/23/18 08:15; Admin Dose 5 MG; Start 11/22/18 at 09:00 Diagnostic Test (Pha) (Accu-Chek) 1 ea AC MEALS AND BEDTIME XX Last administ ered on 11/22/18 21:31; Admin Dose 1 EA; Start 11/21/18 at 21:00 Lisinopril (Zestril) 10 mg DAILY PO Last administered on 11/22/18 08:32; Admin Dose 10 MG; Start 11/22/18 at 09:00 Metoprolol Succinate (Toprol Xl) 50 mg DAILY PO Last administered on 11/22/18 08:33; Admin Dose 50 MG; Start 11/22/18 at 09:00 Mupirocin (Bactroban) 1 applic BID TOP Last administered on 11/23/18 08:18; Admin Dose 1 APPLIC; Start 11/21/18 at 21:00 Pantoprazole (Protonix Tab) 40 mg DAILY@06 PO Last administered on 11/23/18 05:35; Admin Dose 40 MG; Start 11/22/18 at 06:00 NEHA BROOKS MD Nov 23, 2018 12:03
[2018-11-23 14:00] VITALS: BP 141/84; PULSE 94; RESP 18
--- NOTE | 2018-11-23 17:51 | PN ---
Date/Time of Note Date/Time of Note DATE: 11/23/18 TIME: 17:49 Assessment/Plan VTE Prophylaxis Risk score (from Ns)>0 risk: 4 SCD applied (from Ns): Yes Pharmacological prophylaxis: NA/contraindicated Pharm contraindication: low risk/ambulating Lines/Catheters IV [facility] [place] Assessment/Plan Hospital Course 1 right arm weakness MRI brain 11/20/18 1. Acute, ischemic, infarcts in the left posterior frontal paige radiography and left external capsule 2. DM type II uncontrolled 3. Obesity 4. Hypertension 5. SIRS, source ? 6. Hx of 3 vessel heart bypass. 2003 7. hx of herniorrhaphy left 8. Injury of the right big toe 9. Hx of cellulitis 10. Chronic kidney disease. UA is negative CR 1.3 Assessment/Plan -CW ASA 81 and plavix 75 and atorvastatin 40 -Lisinopril and metoprolol per cardiology -Aggressive PT/OT -increase Lantus to 22 and increase her mealtime insulin to 6 and add metformin -Echo neg and carotid ultrasound negative -cardiology consult dr Bonner -neurology consult Dr Matthews Result Diagram: 11/22/18 0623 11/22/18 0623 Results 24hrs Laboratory Tests Test 11/22/18 21:22 11/23/18 02:05 11/23/18 07:51 11/23/18 11:53 Bedside Glucose 276 H 281 H 236 H 227 H Test 11/23/18 17:12 Bedside Glucose 242 H Subjective 24 Hr Interval Summary Free Text/Dictation Sugars over 200 Right upper extremity improved weakness slight improvement Exam/Review of Systems Exam Vitals Vital Signs Date Temp Pulse Resp B/P (MAP) Pulse Ox O2 O2 Flow FiO2 Time Delivery Rate 11/23/18 97.7 94 18 141/84 95 Room Air 14:00 (103) Intake and Output 11/22/18 11/22/18 11/23/18 1515:00 23:00 07:00 IntakeIntake Total 240 ml 800 ml 550 ml OutputOutput Total 540 ml BalanceBalance 240 ml 260 ml 550 ml Exam he is awake alert oriented Right upper extremity weakness Lungs clear to auscultate Results Results 24hrs Laboratory Tests Test 11/22/18 21:22 11/23/18 02:05 11/23/18 07:51 7/18/19 11:53 Bedside Glucose 276 H 281 H 236 H 227 H Test 11/23/18 17:12 Bedside Glucose 242 H Medications Medication Current Medications Docusate Sodium (Colace) 100 mg BID PO Last administered on 11/23/18at 08:19; Admin Dose 100 MG; Start 11/21/18 at 21:00 Senna (Senokot) 1 tab HS PO Last administered on 11/22/18at 21:26; Admin Dose 1 TAB; Start 11/21/18 at 21:00 Magnesium Hydroxide (Milk Of Mag) 30 ml BID PRN PO CONSTIPATION Last administered on 11/23/18at 00:38; Admin Dose 30 ML; Start 11/21/18 at 17:30 Lactulose (Enulose) 20 gm DAILY PRN PO CONSTIPATION; Start 11/21/18 at 17:30 Bisacodyl (Dulcolax Supp) 10 mg DAILY PRN GA CONSTIPATION; Start 11/21/18 at 17:30 Acetaminophen (Tylenol Tab) 650 mg Q4H PRN PO PAIN Last administered on 11/21/18at 22:19; Admin Dose 650 MG; Start 11/21/18 at 17:30 [facility] This patient bates... PRN PRN XX WOUND CARE; Start 11/21/18 at 17:30 Diagnostic Test (Pha) (Accu-Chek) 1 ea 02 XX Last administered on 11/23/18at 02:07; Admin Dose 1 EA; Start 11/22/18 at 02:00 Insulin Aspart (Novolog Insulin Pen) NOVOLOG *MILD* ALGORITHM WITH MEALS BEDTIME SC Last administered on 11/23/18at 17:15; Admin Dose 3 UNIT; Start 11/21/18 at 21:00 Glucagon (Glucagen) 1 mg PRN PRN IM DECREASED GLUCOSE; Start 11/21/18 at 18:00 Glucose (Glutose) 15 gm PRN PRN PO DECREASED GLUCOSE; Start 11/21/18 at 18:00 Glucose (Glutose) 22.5 gm PRN PRN PO DECREASED GLUCOSE; Start 11/21/18 at 18:00 Aspirin (Aspirin) 81 mg DAILY PO Last administered on 11/23/18at 08:20; Admin Dose 81 MG; Start 11/22/18 at 09:00 Atorvastatin Calcium (Lipitor) 40 mg HS PO Last administered on 11/22/18 21:26; Admin Dose 40 MG; Start 11/21/18 at 21:00 Clopidogrel Bisulfate (plaVIX) 75 mg DAILY PO Last administered on 11/23/18at 08:18; Admin Dose 75 MG; Start 11/22/18 at 09:00 Hydralazine HCl (Apresoline) 5 mg Q6H PRN IV ELEVATED BLOOD PRESSURE; Start 11/21/18 at 18:00 Linagliptin (Tradjenta) 5 mg DAILY PO Last administered on 11/23/18at 08:15; Admin Dose 5 MG; Start 11/22/18 at 09:00 Diagnostic Test (Pha) (Accu-Chek) 1 ea AC MEALS AND BEDTIME XX Last administered on 11/22/18at 21:31; Admin Dose 1 EA; Start 11/21/18 at 21:00 Lisinopril (Zestril) 10 mg DAILY PO Last administered on 11/23/18at 13:25; Admin Dose 10 MG; Start 11/22/18 at 09:00 Metoprolol Succinate (Toprol Xl) 50 mg DAILY PO Last administered on 11/23/18at 13:25; Admin Dose 50 MG; Start 11/22/18 at 09:00 Mupirocin (Bactroban) 1 applic BID TOP Last administered on 11/23/18at 08:18; Admin Dose 1 APPLIC; Start 11/21/18 at 21:00 Pantoprazole (Protonix Tab) 40 mg DAILY@06 PO Last administered on 11/23/18at 05:35; Admin Dose 40 MG; Start 11/22/18 at 06:00 Insulin Aspart (Novolog Insulin Pen) 6 unit WITH BREAKFAST SC ; Start 11/24/18 at 07:35; Status UNV Insulin Aspart (Novolog Insulin Pen) 6 unit WITH LUNCH SC ; Start 11/24/18 at 12:00; Status UNV Insulin Aspart (Novolog Insulin Pen) 6 unit WITH DINNER SC ; Start 11/24/18 at 17:35; Status UNV Insulin Glargine (Lantus) 22 units DAILY@2000 SC ; Start 11/23/18 at 20:00; Status UNV Metformin HCl (Glucophage) 500 mg WITH BREAKFAST PO ; Start 11/24/18 at 07:35; Status UNV Metformin HCl (Glucophage) 500 mg WITH DINNER PO ; Start 11/24/18 at 17:35; Status UNV Diagnostic Test (Pha) (Accu-Chek) 1 ea AC MEALS AND BEDTIME XX ; Start 11/23/18 at 21:00; Status UNV JAMES WILLIS MD Nov 23, 2018 17:51
--- NOTE | 2018-11-23 18:39 | CONS ---
Assessment/Plan Assessment/Plan Hospital Course (Demo Recall) IMPRESSION: 1. Hypertension-reasonable control 2. History of coronary artery disease, status post coronary artery bypass grafting with a known occlusion of one graft by catheterization 2016. Negative troponin x3 here. No chest pain.-Echo EF 50%, no sig valve abnl 3. Dyslipidemia. 4. Right arm weakness. Rule out acute cerebrovascular accident. Negative head CT at outside hospital. Now s/p MRI revealing acute CVA. No sig arrythmias noted on tele 5. Diabetes mellitus. 6. Renal failure from outside hospital. Recc: -Now in rehab -Contineu current BB/ACEI and follow BP clsoely but very high hold parameters. If no need for ongoing permissive HTN(per neuro) would decrease hold parameters to assure patient remains normotensive. -Continue asa/plavix -continue statin -PT/OT Consultation Date/Type/Reason Admit Date/Time Nov 21, 2018 at 16:58 Initial Consult Date 11/22/18 Type of Consult Cardiology Reason for Consultation HTN Requesting Provider: JAMES WILLIS MD Date/Time of Note DATE: 11/23/18 TIME: 18:36 Exam/Review of Systems Vital Signs Vitals Vital Signs Date Temp Pulse Resp B/P (MAP) Pulse Ox O2 O2 Flow FiO2 Time Delivery Rate 11/23/18 97.7 94 18 141/84 95 Room Air 14:00 (103) Intake and Output 11/22/18 11/22/18 11/23/18 1515:00 23:00 07:00 IntakeIntake Total 240 ml 800 ml 550 ml OutputOutput Total 540 ml BalanceBalance 240 ml 260 ml 550 ml Exam Exam Review of Systems: CONSTITUTIONAL: No fevers, chills. PULMONARY: No sob CARDIOVASCULAR: No chest pain/palpitations GASTROINTESTINAL: No nausea/vomiting. GENITOURINARY: No hematuria/dysuria. MUSCULOSKELETAL: No myagias/arthalgias. PSYCHIATRIC: The patient denies depression. NEUROLOGIC: RUE weakness Constitutional: alert Psych: no complaints Head: normocephalic ENMT: mucosa pink and moist Neck: supple, jvd (9 cm water) Respiratory: diminished breath sounds Cardiovascular: regular rate and rhythm Gastrointestinal: soft, non-tender Musculoskeletal: muscle tone (normal) Extremities: edema (none) Neurological: focal weakness (RUE weakness), other Labs Result Diagram: 11/22/1823 11/22/1823 Results 24hrs Laboratory Tests Test 11/22/18 21:22 11/23/18 02:05 11/23/18 07:51 11/23/18 11:53 Bedside Glucose 276 H 281 H 236 H 227 H Test 11/23/18 17:12 Bedside Glucose 242 H Medications Medications Current Medications Docusate Sodium (Colace) 100 mg BID PO Last administered on 11/23/18at 08:19; Admin Dose 100 MG; Start 11/21/18 at 21:00 Senna (Senokot) 1 tab HS PO Last administered on 11/22/18at 21:26; Admin Dose 1 TAB; Start 11/21/18 at 21:00 Magnesium Hydroxide (Milk Of Mag) 30 ml BID PRN PO CONSTIPATION Last administered on 11/23/18at 00:38; Admin Dose 30 ML; Start 11/21/18 at 17:30 Lactulose (Enulose) 20 gm DAILY PRN PO CONSTIPATION; Start 11/21/18 at 17:30 Bisacodyl (Dulcolax Supp) 10 mg DAILY PRN [place] CONSTIPATION; Start 11/21/18 at 17:30 Acetaminophen (Tylenol Tab) 650 mg Q4H PRN PO PAIN Last administered on 11/21/18at 22:19; Admin Dose 650 MG; Start 11/21/18 at 17:30 Miscellaneous Information (Pending [facility] Order For Wound Care) This patient bates... PRN PRN XX WOUND CARE; Start 11/21/18 at 17:30 Diagnostic Test (Pha) (Accu-Chek) 1 ea 02 XX Last administered on 11/23/18at 02:07; Admin Dose 1 EA; Start 11/22/18 at 02:00 Insulin Aspart (Novolog Insulin Pen) NOVOLOG *MILD* ALGORITHM WITH MEALS BEDTIME SC Last administered on 11/23/18at 17:15; Admin Dose 3 UNIT; Start 11/21/18 at 21:00 Glucagon (Glucagen) 1 mg PRN PRN IM DECREASED GLUCOSE; Start 11/21/18 at 18:00 Glucose (Glutose) 15 gm PRN PRN PO DECREASED GLUCOSE; Start 11/21/18 at 18:00 Glucose (Glutose) 22.5 gm PRN PRN PO DECREASED GLUCOSE; Start 11/21/18 at 18:00 Aspirin (Aspirin) 81 mg DAILY PO Last administered on 11/23/18at 08:20; Admin Dose 81 MG; Start 11/22/18 at 09:00 Atorvastatin Calcium (Lipitor) 40 mg HS PO Last administered on 11/22/18at 21:26; Admin Dose 40 MG; Start 11/21/18 at 21:00 Clopidogrel Bisulfate (plaVIX) 75 mg DAILY PO Last administered on 11/23/18at 08:18; Admin Dose 75 MG; Start 11/22/18 at 09:00 Hydralazine HCl (Apresoline) 5 mg Q6H PRN IV ELEVATED BLOOD PRESSURE; Start 11/21/18 at 18:00 Linagliptin (Tradjenta) 5 mg DAILY PO Last administered on 11/23/18at 08:15; Admin Dose 5 MG; Start 11/22/18 at 09:00 Lisinopril (Zestril) 10 mg DAILY PO Last administered on 11/23/18at 13:25; Admin Dose 10 MG; Start 11/22/18 at 09:00 Metoprolol Succinate (Toprol Xl) 50 mg DAILY PO Last administered on 11/23/18at 13:25; Admin Dose 50 MG; Start 11/22/18 at 09:00 Mupirocin (Bactroban) 1 applic BID TOP Last administered on 11/23/18at 08:18; Ad min Dose 1 APPLIC; Start 11/21/18 at 21:00 Pantoprazole (Protonix Tab) 40 mg DAILY@06 PO Last administered on 11/23/18at 05:35; Admin Dose 40 MG; Start 11/22/18 at 06:00 Insulin Aspart (Novolog Insulin Pen) 6 unit WITH BREAKFAST SC ; Start 11/24/18 at 07:35 Insulin Aspart (Novolog Insulin Pen) 6 unit WITH LUNCH SC ; Start 11/24/18 at 12:00 Insulin Aspart (Novolog Insulin Pen) 6 unit WITH DINNER SC ; Start 11/24/18 at 17:35 Insulin Glargine (Lantus) 22 units DAILY@2000 SC ; Start 11/23/18 at 20:00 Metformin HCl (Glucophage) 500 mg WITH BREAKFAST PO ; Start 11/24/18 at 07:35 Metformin HCl (Glucophage) 500 mg WITH DINNER PO ; Start 11/24/18 at 17:35 Diagnostic Test (Pha) (Accu-Chek) 1 ea AC MEALS AND BEDTIME XX ; Start 11/23/18 at 21:00 JUDAH SU Nov 23, 2018 18:39
[2018-11-23 20:14] VITALS: BP 101/60; PULSE 80; RESP 19
[2018-11-23] MEDS: INSULIN GLARGINE [LANTus] (100 UNITS/ML) SYG SC SCH (20:42)
[2018-11-23] MEDS: ATORVASTATIN 40 MG TAB PO SCH (20:43)
[2018-11-23] MEDS: SENNA TAB PO SCH (20:49)
[2018-11-24 02:00] VITALS: BP 120/70; PULSE 67; RESP 18
[2018-11-24] MEDS: ACCU-CHEK XX SCH ×5 (02:32→20:31)
[2018-11-24] MEDS: PANTOPRAZOLE (EC) 40 MG TAB PO SCH (05:36)
[2018-11-24 07:30] VITALS: BP 134/80; PULSE 71; RESP 18
[2018-11-24] MEDS: metFORMIN 500 MG TAB PO SCH ×2 (07:58→17:29)
[2018-11-24] MEDS: INSULIN ASPART [NOVOLOG] 3 ML PEN SC SCH ×7 (08:00→20:30)
[2018-11-24] MEDS: CLOPIDOGREL 75 MG TAB PO SCH (08:23)
[2018-11-24] MEDS: LINAGLIPTIN 5 MG TABLET PO SCH (08:23)
[2018-11-24] MEDS: DOCUSATE SODIUM 100 MG CAP PO SCH ×2 (08:23→20:28)
[2018-11-24] MEDS: ASPIRIN 81 MG TAB PO SCH (08:24)
[2018-11-24] MEDS: METOPROLOL (XL) 50 MG TAB PO SCH (09:00)
[2018-11-24] MEDS: LISINOPRIL 10 MG TAB PO SCH (09:00)
[2018-11-24] MEDS: BALSAM PERU/CASTOR OIL 60 GM TUBE TOP SCH (09:28)
[2018-11-24] MEDS: MUPIROCIN 2% 22 GM OINT TOP SCH ×2 (09:28→20:36)
--- NOTE | 2018-11-24 13:21 | CONS ---
Assessment/Plan Assessment/Plan Hospital Course (Demo Recall) IMPRESSION: 1. Hypertension-reasonable control 2. History of coronary artery disease, status post coronary artery bypass grafting with a known occlusion of one graft by catheterization 2016. Negative troponin x3 here. No chest pain.-Echo EF 50%, no sig valve abnl 3. Dyslipidemia. 4. Right arm weakness. Rule out acute cerebrovascular accident. Negative head CT at outside hospital. Now s/p MRI revealing acute CVA. No sig arrythmias noted on tele 5. Diabetes mellitus. 6. Renal failure from outside hospital. Recc: -Now in rehab -Contineu current BB/ACEI and follow BP closely but very high hold parameters. If no need for ongoing permissive HTN(per neuro) would decrease hold parameters to assure patient remains normotensive and will reduce dose of zestril -Continue asa/plavix -continue statin -PT/OT Consultation Date/Type/Reason Admit Date/Time Nov 21, 2018 at 16:58 Initial Consult Date 11/22/18 Type of Consult Cardiology Reason for Consultation HTN Requesting Provider: JAMES WILLIS MD Date/Time of Note DATE: 11/24/18 TIME: 13:20 Exam/Review of Systems Vital Signs Vitals Vital Signs Date Temp Pulse Resp B/P (MAP) Pulse Ox O2 O2 Flow FiO2 Time Delivery Rate 11/24/18 97.9 71 18 134/80 98 Room Air 07:30 (98) Intake and Output 11/23/18 11/23/18 11/24/18 1515:00 23:00 07:00 IntakeIntake Total 1100 ml OutputOutput Total 450 ml 150 ml 1 ml BalanceBalance -450 ml 950 ml -1 ml Exam Exam Review of Systems: CONSTITUTIONAL: No fevers, chills. PULMONARY: No sob CARDIOVASCULAR: No chest pain/palpitations GASTROINTESTINAL: No nausea/vomiting. GENITOURINARY: No hematuria/dysuria. MUSCULOSKELETAL: No myagias/arthalgias. PSYCHIATRIC: The patient denies depression. NEUROLOGIC: focal weakness Constitutional: alert Psych: no complaints Head: normocephalic ENMT: mucosa pink and moist Neck: supple, jvd (9 cm water) Respiratory: clear to auscultation Cardiovascular: regular rate and rhythm Gastrointestinal: soft, non-tender Musculoskeletal: muscle weakness (focal) Extremities: edema (none) Neurological: focal weakness (RUE) Labs Result Diagram: 7/17/19 0623 11/22/18 0623 Results 24hrs Laboratory Tests Test 11/23/18 17:12 11/23/18 20:38 11/24/18 02:20 11/24/18 07:56 Bedside Glucose 242 H 216 219 253 H Test 11/24/18 11:46 Bedside Glucose 192 Medications Medications Current Medications Docusate Sodium (Colace) 100 mg BID PO Last administered on 11/24/18at 08:23; Admin Dose 100 MG; Start 11/21/18 at 21:00 Senna (Senokot) 1 tab HS PO Last administered on 11/22/18 21:26; Admin Dose 1 TAB; Start 11/21/18 at 21:00 Magnesium Hydroxide (Milk Of Mag) 30 ml BID PRN PO CONSTIPATION Last administered on 11/23/18at 00:38; Admin Dose 30 ML; Start 11/21/18 at 17:30 Lactulose (Enulose) 20 gm DAILY PRN PO CONSTIPATION Last administered on 11/24/18at 04:13; Admin Dose 20 GM; Start 11/21/18 at 17:30 Bisacodyl (Dulcolax Supp) 10 mg DAILY PRN [place] CONSTIPATION; Start 11/21/18 at 17:30 Acetaminophen (Tylenol Tab) 650 mg Q4H PRN PO PAIN Last administered on 11/21/18 22:19; Admin Dose 650 MG; Start 11/21/18 at 17:30 Miscellaneous Information (Pending [facility] Order For Wound Care) This patient bates... PRN PRN XX WOUND CARE; Start 11/21/18 at 17:30 Diagnostic Test (Pha) (Accu-Chek) 1 ea 02 XX Last administered on 11/24/18at 02:32; Admin Dose 1 EA; Start 11/22/18 at 02:00 Insulin Aspart (Novolog Insulin Pen) NOVOLOG *MILD* ALGORITHM WITH MEALS BEDTIME SC Last administered on 11/24/18at 11:50; Admin Dose 2 UNIT; Start 11/21/18 at 21:00 Glucagon (Glucagen) 1 mg PRN PRN IM DECREASED GLUCOSE; Start 11/21/18 at 18:00 Glucose (Glutose) 15 gm PRN PRN PO DECREASED GLUCOSE; Start 11/21/18 at 18:00 Glucose (Glutose) 22.5 gm PRN PRN PO DECREASED GLUCOSE; Start 11/21/18 at 18:00 Aspirin (Aspirin) 81 mg DAILY PO Last administered on 11/24/18 08:24; Admin Dose 81 MG; Start 11/22/18 at 09:00 Atorvastatin Calcium (Lipitor) 40 mg HS PO Last administered on 11/23/18 20:43; Admin Dose 40 MG; Start 11/21/18 at 21:00 Clopidogrel Bisulfate (plaVIX) 75 mg DAILY PO Last administered on 11/24/18 08:23; Admin Dose 75 MG; Start 11/22/18 at 09:00 Hydralazine HCl (Apresoline) 5 mg Q6H PRN IV ELEVATED BLOOD PRESSURE; Start 11/21/18 at 18:00 Linagliptin (Tradjenta) 5 mg DAILY PO Last administered on 11/24/18 08:23; Admin Dose 5 MG; Start 11/22/18 at 09:00 Lisinopril (Zestril) 10 mg DAILY PO Last administered on 11/23/18 13:25; Admin Dose 10 MG; Start 11/22/18 at 09:00 Metoprolol Succinate (Toprol Xl) 50 mg DAILY PO Last administered on 11/23/18 13:25; Admin Dose 50 MG; Start 11/22/18 at 09:00 Mupirocin (Bactroban) 1 applic BID TOP Last administered on 11/24/18 09:28; Admin Dose 1 APPLIC; Start 11/21/18 at 21:00 Pantoprazole (Protonix Tab) 40 mg DAILY@06 PO Last administered on 11/24/18 05:36; Admin Dose 40 MG; Start 11/22/18 at 06:00 Insulin Aspart (Novolog Insulin Pen) 6 unit WITH BREAKFAST SC Last administered on 11/24/18 08:01; Admin Dose 6 UNIT; Start 11/24/18 at 07:35 Insulin Aspart (Novolog Insulin Pen) 6 unit WITH LUNCH SC Last administered on 11/24/18 11:52; Admin Dose 6 UNIT; Start 11/24/18 at 12:00 Insulin Aspart (Novolog Insulin Pen) 6 unit WITH DINNER SC ; Start 11/24/18 at 17:35 Insulin Glargine (Lantus) 22 units DAILY@2000 SC Last administered on 7/18/19at 20:42; Admin Dose 22 UNITS; Start 11/23/18 at 20:00 Metformin HCl (Glucophage) 500 mg WITH BREAKFAST PO Last administered on 11/24/18at 07:58; Admin Dose 500 MG; Start 11/24/18 at 07:35 Metformin HCl (Glucophage) 500 mg WITH DINNER PO ; Start 11/24/18 at 17:35 Diagnostic Test (Pha) (Accu-Chek) 1 ea AC MEALS AND BEDTIME XX Last administered on 11/23/18at 20:49; Admin Dose 1 EA; Start 11/23/18 at 21:00 JUDAH SU Nov 24, 2018 13:21
--- NOTE | 2018-11-24 13:30 | PN ---
Date/Time of Note Date/Time of Note DATE: 11/24/18 TIME: 13:29 Subjective Comfortable Objective Vital Signs Date Temp Pulse Resp B/P (MAP) Pulse Ox O2 O2 Flow FiO2 Time Delivery Rate 11/24/18 97.9 71 18 134/80 98 Room Air 07:30 (98) Intake and Output 11/23/18 11/23/18 11/24/18 1515:00 23:00 07:00 IntakeIntake Total 1100 ml OutputOutput Total 450 ml 150 ml 1 ml BalanceBalance -450 ml 950 ml -1 ml Exam min/mod transfer min/mod ambulation 50 feet Results/Medications Result Diagram: 11/22/18 0623 11/22/18 0623 Results 24 hrs Laboratory Tests Test 11/23/18 17:12 11/23/18 20:38 11/24/18 02:20 11/24/18 07:56 Bedside Glucose 242 H 216 219 253 H Test 11/24/18 11:46 Bedside Glucose 192 Medications Current Medications Docusate Sodium (Colace) 100 mg BID PO Last administered on 11/24/18at 08:23; Admin Dose 100 MG; Start 11/21/18 at 21:00 Senna (Senokot) 1 tab HS PO Last administered on 11/22/18at 21:26; Admin Dose 1 TAB; Start 11/21/18 at 21:00 Magnesium Hydroxide (Milk Of Mag) 30 ml BID PRN PO CONSTIPATION Last adm inistered on 11/23/18at 00:38; Admin Dose 30 ML; Start 11/21/18 at 17:30 Lactulose (Enulose) 20 gm DAILY PRN PO CONSTIPATION Last administered on 11/24/18at 04:13; Admin Dose 20 GM; Start 11/21/18 at 17:30 Bisacodyl (Dulcolax Supp) 10 mg DAILY PRN [place] CONSTIPATION; Start 11/21/18 at 17:30 Acetaminophen (Tylenol Tab) 650 mg Q4H PRN PO PAIN Last administered on 11/21/18at 22:19; Admin Dose 650 MG; Start 11/21/18 at 17:30 Miscellaneous Information (Pending [facility] Order For Wound Care) This patient h a... PRN PRN XX WOUND CARE; Start 11/21/18 at 17:30 Diagnostic Test (Pha) (Accu-Chek) 1 ea 02 XX Last administered on 11/24/18at 02:32; Admin Dose 1 EA; Start 11/22/18 at 02:00 Insulin Aspart (Novolog Insulin Pen) NOVOLOG *MILD* ALGORITHM WITH MEALS BEDTIME SC Last administered on 11/24/18 11:50; Admin Dose 2 UNIT; Start 11/21/18 at 21:00 Glucagon (Glucagen) 1 mg PRN PRN IM DECREASED GLUCOSE; Start 11/21/18 at 18:00 Glucose (Glutose) 15 gm PRN PRN PO DECREASED GLUCOSE; Start 11/21/18 at 18:00 Glucose (Glutose) 22.5 gm PRN PRN PO DECREASED GLUCOSE; Start 11/21/18 at 18:00 Aspirin (Aspirin) 81 mg DAILY PO Last administered on 11/24/18 08:24; Admin Dose 81 MG; Start 11/22/18 at 09:00 Atorvastatin Calcium (Lipitor) 40 mg HS PO Last administered on 11/23/18at 20:43; Admin Dose 40 MG; Start 11/21/18 at 21:00 Clopidogrel Bisulfate (plaVIX) 75 mg DAILY PO Last administered on 11/24/18 08:23; Admin Dose 75 MG; Start 11/22/18 at 09:00 Hydralazine HCl (Apresoline) 5 mg Q6H PRN IV ELEVATED BLOOD PRESSURE; Start 11/21/18 at 18:00 Linagliptin (Tradjenta) 5 mg DAILY PO Last administered on 11/24/18 08:23; Admin Dose 5 MG; Start 11/22/18 at 09:00 Metoprolol Succinate (Toprol Xl) 50 mg DAILY PO Last administered on 11/23/18 13:25; Admin Dose 50 MG; Start 11/22/18 at 09:00 Mupirocin (Bactroban) 1 applic BID TOP Last administered on 11/24/18 09:28; Admin Dose 1 APPLIC; Start 11/21/18 at 21:00 Pantoprazole (Protonix Tab) 40 mg DAILY@06 PO Last administered on 11/24/18 05:36; Admin Dose 40 MG; Start 11/22/18 at 06:00 Insulin Aspart (Novolog Insulin Pen) 6 unit WITH BREAKFAST SC Last administered on 11/24/18 08:01; Admin Dose 6 UNIT; Start 11/24/18 at 07:35 Insulin Aspart (Novolog Insulin Pen) 6 unit WITH LUNCH SC Last administered on 11/24/18at 11:52; Admin Dose 6 UNIT; Start 11/24/18 at 12:00 Insulin Aspart (Novolog Insulin Pen) 6 unit WITH DINNER SC ; Start 11/24/18 at 17:35 Insulin Glargine (Lantus) 22 units DAILY@2000 SC Last administered on 11/23/18at 20:42; Admin Dose 22 UNITS; Start 11/23/18 at 20:00 Metformin HCl (Glucophage) 500 mg WITH BREAKFAST PO Last administered on 11/24/18at 07:58; Admin Dose 500 MG; Start 11/24/18 at 07:35 Metformin HCl (Glucophage) 500 mg WITH DINNER PO ; Start 11/24/18 at 17:35 Diagnostic Test (Pha) (Accu-Chek) 1 ea AC MEALS AND BEDTIME XX Last administered on 11/23/18at 20:49; Admin Dose 1 EA; Start 11/23/18 at 21:00 Lisinopril (Zestril) 5 mg DAILY PO ; Start 11/25/18 at 09:00 Assessment/Plan Additional Assessment/Plan rehab- Left frontal paige radiata infarct cerebrovascular accident with right- sided weakness. Continue current treatment plan Hypertension. Coronary artery disease. CABG. Hyperlipidemia. Diabetes mellitus type 2. Acute on chronic kidney disease. NEHA BROOKS MD Nov 24, 2018 13:30
[2018-11-24 14:00] VITALS: BP 123/75; PULSE 93; RESP 20
--- NOTE | 2018-11-24 16:09 | PN ---
Date/Time of Note Date/Time of Note DATE: 11/24/18 TIME: 16:09 Assessment/Plan VTE Prophylaxis Risk score (from Ns)>0 risk: 3 SCD applied (from Ns): Yes Pharmacological prophylaxis: LMWH Lines/Catheters IV Catheter Type (from Nrs): [place] Assessment/Plan Hospital Course 1 Right arm weakness due to ischemic stroke MRI brain 11/20/18 showed : Acute, ischemic, infarcts in the left posterior frontal paige radiography and left external capsule 2. DM type II uncontrolled with hyperglycemia 3. Obesity 4. Hypertension 5. SIRS, resolved 6. Hx of 3 vessel heart bypass. 2003 7. hx of herniorrhaphy left 8. Injury of the right big toe, healed 9. Hx of cellulitis 10. VLADIMIR vs Chronic kidney disease, now creatinine decreased to 1.2. Assessment/Plan -hyperglycemic, watch visitors food -start Lovenox for DVT prophylaxis -on Tradjenta, Metformin BID -watch creatinine -c.w PT/OT -C w ASA 81 and plavix 75 and atorvastatin 40 for a/coagualtion -Lisinopril and metoprolol per cardiology BP control -increase Lantus to 22 and increase his mealtime insulin to 6 -Echo neg and carotid ultrasound negative -cardiology consult dr Bonner -neurology consult Dr Matthews is appreciated Result Diagram: 11/22/18 0623 11/22/18 0623 Results 24hrs Laboratory Tests Test 11/23/18 17:12 11/23/18 20:38 11/24/18 02:20 11/24/18 07:56 Bedside Glucose 242 H 216 219 253 H Test 11/24/18 11:46 Bedside Glucose 192 Subjective 24 Hr Interval Summary Free Text/Dictation weakness right arm Musculoskeletal: restricted range of motion (right arm ) Exam/Review of Systems Exam Vitals Vital Signs Date Temp Pulse Resp B/P (MAP) Pulse Ox O2 O2 Flow FiO2 Time Delivery Rate 11/24/18 97.9 93 20 123/75 96 Room Air 14:00 (91) Intake and Output 11/23/18 11/23/18 11/24/18 1515:00 23:00 07:00 IntakeIntake Total 1100 ml OutputOutput Total 450 ml 150 ml 1 ml BalanceBalance -450 ml 950 ml -1 ml Constitutional: alert, oriented Neck: supple Respiratory: clear to auscultation Cardiovascular: regular rate and rhythm Gastrointestinal: soft Musculoskeletal: muscle weakness (right arm) Neurological: focal weakness (right arm), reflexes (absent right arm) Skin: nl turgor Results Results 24hrs Laboratory Tests Test 11/23/18 17:12 11/23/18 20:38 11/24/18 02:20 11/24/18 07:56 Bedside Glucose 242 H 216 219 253 H Test 11/24/18 11:46 Bedside Glucose 192 Medications Medication Current Medications Docusate Sodium (Colace) 100 mg BID PO Last administered on 11/24/18 08:23; Admin Dose 100 MG; Start 11/21/18 at 21:00 Senna (Senokot) 1 tab HS PO Last administered on 11/22/18 21:26; Admin Dose 1 TAB; Start 11/21/18 at 21:00 Magnesium Hydroxide (Milk Of Mag) 30 ml BID PRN PO CONSTIPATION Last administered on 11/23/18at 00:38; Admin Dose 30 ML; Start 11/21/18 at 17:30 Lactulose (Enulose) 20 gm DAILY PRN PO CONSTIPATION Last administered on 11/24/18at 04:13; Admin Dose 20 GM; Start 11/21/18 at 17:30 Bisacodyl (Dulcolax Supp) 10 mg DAILY PRN [place] CONSTIPATION; Start 11/21/18 at 17:30 Acetaminophen (Tylenol Tab) 650 mg Q4H PRN PO PAIN Last administered on 11/21/18 22:19; Admin Dose 650 MG; Start 11/21/18 at 17:30 Miscellaneous Information (Pending [facility] Order For Wound Care) This patient bates... PRN PRN XX WOUND CARE; Start 11/21/18 at 17:30 Diagnostic Test (Pha) (Accu-Chek) 1 ea 02 XX Last administered on 11/24/18at 02:32; Admin Dose 1 EA; Start 11/22/18 at 02:00 Insulin Aspart (Novolog Insulin Pen) NOVOLOG *MILD* ALGORITHM WITH MEALS BEDTIME SC Last administered on 11/24/18at 11:50; Admin Dose 2 UNIT; Start 11/21/18 at 21:00 Glucagon (Glucagen) 1 mg PRN PRN IM DECREASED GLUCOSE; Start 11/21/18 at 18:00 Glucose (Glutose) 15 gm PRN PRN PO DECREASED GLUCOSE; Start 11/21/18 at 18:00 Glucose (Glutose) 22.5 gm PRN PRN PO DECREASED GLUCOSE; Start 11/21/18 at 18:00 Aspirin (Aspirin) 81 mg DAILY PO Last administered on 11/24/18 08:24; Admin Dose 81 MG; Start 11/22/18 at 09:00 Atorvastatin Calcium (Lipitor) 40 mg HS PO Last administered on 11/23/18at 20:43; Admin Dose 40 MG; Start 11/21/18 at 21:00 Clopidogrel Bisulfate (plaVIX) 75 mg DAILY PO Last administered on 11/24/18 08:23; Admin Dose 75 MG; Start 11/22/18 at 09:00 Hydralazine HCl (Apresoline) 5 mg Q6H PRN IV ELEVATED BLOOD PRESSURE; Start 11/21/18 at 18:00 Linagliptin (Tradjenta) 5 mg DAILY PO Last administered on 11/24/18 08:23; Admin Dose 5 MG; Start 11/22/18 at 09:00 Metoprolol Succinate (Toprol Xl) 50 mg DAILY PO Last administered on 11/23/18 13:25; Admin Dose 50 MG; Start 11/22/18 at 09:00 Mupirocin (Bactroban) 1 applic BID TOP Last administered on 11/24/18 09:28; Admin Dose 1 APPLIC; Start 11/21/18 at 21:00 Pantoprazole (Protonix Tab) 40 mg DAILY@06 PO Last administered on 11/24/18 05:36; Admin Dose 40 MG; Start 11/22/18 at 06:00 Insulin Aspart (Novolog Insulin Pen) 6 unit WITH BREAKFAST SC Last administered on 11/24/18 08:01; Admin Dose 6 UNIT; Start 11/24/18 at 07:35 Insulin Aspart (Novolog Insulin Pen) 6 unit WITH LUNCH SC Last administered on 11/24/18at 11:52; Admin Dose 6 UNIT; Start 11/24/18 at 12:00 Insulin Aspart (Novolog Insulin Pen) 6 unit WITH DINNER SC ; Start 11/24/18 at 17:35 Insulin Glargine (Lantus) 22 units DAILY@2000 SC Last administered on 11/23/18at 20:42; Admin Dose 22 UNITS; Start 7/18/19 at 20:00 Metformin HCl (Glucophage) 500 mg WITH BREAKFAST PO Last administered on 11/24/18at 07:58; Admin Dose 500 MG; Start 11/24/18 at 07:35 Metformin HCl (Glucophage) 500 mg WITH DINNER PO ; Start 11/24/18 at 17:35 Diagnostic Test (Pha) (Accu-Chek) 1 ea AC MEALS AND BEDTIME XX Last administered on 11/23/18at 20:49; Admin Dose 1 EA; Start 11/23/18 at 21:00 Lisinopril (Zestril) 5 mg DAILY PO ; Start 11/25/18 at 09:00 ADAN PALMA Nov 24, 2018 16:09
[2018-11-24 19:21] VITALS: BP 119/71; PULSE 83; RESP 18
[2018-11-24] MEDS: SENNA TAB PO SCH (20:28)
[2018-11-24] MEDS: ATORVASTATIN 40 MG TAB PO SCH (20:28)
[2018-11-24] MEDS: INSULIN GLARGINE [LANTus] (100 UNITS/ML) SYG SC SCH (20:31)
[2018-11-25 02:00] VITALS: BP 122/77; PULSE 79; RESP 18
[2018-11-25] MEDS: ACCU-CHEK XX SCH ×5 (02:36→20:32)
[2018-11-25] MEDS: PANTOPRAZOLE (EC) 40 MG TAB PO SCH (06:01)
[2018-11-25 07:00] VITALS: BP 128/78; PULSE 87; RESP 18
[2018-11-25] MEDS: INSULIN ASPART [NOVOLOG] 3 ML PEN SC SCH ×7 (07:59→20:26)
[2018-11-25] MEDS: metFORMIN 500 MG TAB PO SCH ×2 (08:00→17:50)
[2018-11-25] MEDS: DOCUSATE SODIUM 100 MG CAP PO SCH ×2 (08:01→20:23)
[2018-11-25] MEDS: ASPIRIN 81 MG TAB PO SCH (08:01)
[2018-11-25] MEDS: METOPROLOL (XL) 50 MG TAB PO SCH (08:01)
[2018-11-25] MEDS: CLOPIDOGREL 75 MG TAB PO SCH (08:01)
[2018-11-25] MEDS: BALSAM PERU/CASTOR OIL 60 GM TUBE TOP SCH (08:02)
[2018-11-25] MEDS: LINAGLIPTIN 5 MG TABLET PO SCH (08:02)
[2018-11-25] MEDS: LISINOPRIL 5 MG TAB PO SCH (08:02)
[2018-11-25] MEDS: MUPIROCIN 2% 22 GM OINT TOP SCH ×2 (08:02→20:32)
[2018-11-25] MEDS: ENOXAPARIN 40 MG/0.4 ML SYG SC SCH (08:18)
--- NOTE | 2018-11-25 10:31 | PN ---
Date/Time of Note Date/Time of Note DATE: 11/25/18 TIME: 10:28 Subjective AWAKE ALERRT UP IN WC Objective Vital Signs Date Temp Pulse Resp B/P (MAP) Pulse Ox O2 O2 Flow FiO2 Time Delivery Rate 11/25/18 98.1 87 18 128/78 92 Room Air 07:00 (95) Intake and Output 11/24/18 11/24/18 11/25/18 1515:00 23:00 07:00 IntakeIntake Total 1100 ml 800 ml OutputOutput Total 1 ml BalanceBalance 1099 ml 800 ml Exam LUNGS CTA COR RRR R ADILENE UE>LE CLOF XT AND GAIT MIN / MODA Results/Medications Result Diagram: 11/25/1862511/25/18 06 Results 24 hrs Laboratory Tests Test 11/24/18 11:46 11/24/18 17:27 11/24/18 20:27 11/25/18 02:16 Bedside Glucose 192 137 185 164 Test 11/25/18 06:26 11/25/18 07:49 White Blood Count 6.9 # Red Blood Count 5.64 Hemoglobin 14.8 Hematocrit 46.7 Mean Corpuscular 82.8 Volume Mean Corpuscular 26.2 L Hemoglobin Mean Corpuscular 31.7 L Hemoglobin Concent Red Cell 15.0 H Distribution Width Platelet Count 217 Mean Platelet Volume 10.4 Immature 0.700 H Granulocytes % Neutrophils % 64.0 Lymphocytes % 28.0 Monocytes % 4.6 Eosinophils % 2.3 Basophils % 0.4 Nucleated Red Blood 0.0 Cells % Immature 0.050 H Granulocytes # Neutrophils # 4.4 Lymphocytes # 1.9 Monocytes # 0.3 Eosinophils # 0.2 Basophils # 0.0 Nucleated Red Blood 0.0 Cells # Sodium Level 140 Potassium Level 4.4 Chloride Level 99 Carbon Dioxide Level 31 Anion Gap 10 Blood Urea Nitrogen 45 H Creatinine 1.68 H Est Glomerular 41 L Filtrat Rate mL/min Glucose Level 222 H Calcium Level 9.6 Bedside Glucose 236 H Medications Current Medications Docusate Sodium (Colace) 100 mg BID PO Last administered on 11/25/18at 08:01; Admin Dose 100 MG; Start 11/21/18 at 21:00 Senna (Senokot) 1 tab HS PO Last administered on 11/24/18at 20:28; Admin Dose 1 TAB; Start 11/21/18 at 21:00 Magnesium Hydroxide (Milk Of Mag) 30 ml BID PRN PO CONSTIPATION Last administered on 11/23/18at 00:38; Admin Dose 30 ML; Start 11/21/18 at 17:30 Lactulose (Enulose) 20 gm DAILY PRN PO CONSTIPATION Last administered on 11/24/18at 04:13; Admin Dose 20 GM; Start 11/21/18 at 17:30 Bisacodyl (Dulcolax Supp) 10 mg DAILY PRN [place] CONSTIPATION; Start 11/21/18 at 17:30 Acetaminophen (Tylenol Tab) 650 mg Q4H PRN PO PAIN Last administered on 11/21/18 22:19; Admin Dose 650 MG; Start 11/21/18 at 17:30 Miscellaneous Information (Pending Santyl Order For Wound Care) This patient bates... PRN PRN XX WOUND CARE; Start 11/21/18 at 17:30 Diagnostic Test (Pha) (Accu-Chek) 1 ea 02 XX Last administered on 11/25/18at 02:36; Admin Dose 1 EA; Start 11/22/18 at 02:00 Insulin Aspart (Novolog Insulin Pen) NOVOLOG *MILD* ALGORITHM WITH MEALS BEDTIM E SC Last administered on 11/25/18at 07:59; Admin Dose 3 UNIT; Start 11/21/18 at 21:00 Glucagon (Glucagen) 1 mg PRN PRN IM DECREASED GLUCOSE; Start 11/21/18 at 18:00 Glucose (Glutose) 15 gm PRN PRN PO DECREASED GLUCOSE; Start 11/21/18 at 18:00 Glucose (Glutose) 22.5 gm PRN PRN PO DECREASED GLUCOSE; Start 11/21/18 at 18:00 Aspirin (Aspirin) 81 mg DAILY PO Last administered on 11/25/18at 08:01; Admin Dose 81 MG; Start 11/22/18 at 09:00 Atorvastatin Calcium (Lipitor) 40 mg HS PO Last administered on 11/24/18at 20:28; Admin Dose 40 MG; Start 11/21/18 at 21:00 Clopidogrel Bisulfate (plaVIX) 75 mg DAILY PO Last administered on 11/25/18at 08:01; Admin Dose 75 MG; Start 11/22/18 at 09:00 Hydralazine HCl (Apresoline) 5 mg Q6H PRN IV ELEVATED BLOOD PRESSURE; Start 11/21/18 at 18:00 Linagliptin (Tradjenta) 5 mg DAILY PO Last administered on 11/25/18 08:02; Admin Dose 5 MG; Start 11/22/18 at 09:00 Metoprolol Succinate (Toprol Xl) 50 mg DAILY PO Last administered on 11/23/18 13:25; Admin Dose 50 MG; Start 11/22/18 at 09:00 Mupirocin (Bactroban) 1 applic BID TOP Last administered on 11/25/18 08:02; Admin Dose 1 APPLIC; Start 11/21/18 at 21:00 Pantoprazole (Protonix Tab) 40 mg DAILY@06 PO Last administered on 11/25/18 06:01; Admin Dose 40 MG; Start 11/22/18 at 06:00 Insulin Aspart (Novolog Insulin Pen) 6 unit WITH BREAKFAST SC Last administered on 11/25/18 07:59; Admin Dose 6 UNIT; Start 11/24/18 at 07:35 Insulin Aspart (Novolog Insulin Pen) 6 unit WITH LUNCH SC Last administered on 11/24/18 11:52; Admin Dose 6 UNIT; Start 11/24/18 at 12:00 Insulin Aspart (Novolog Insulin Pen) 6 unit WITH DINNER SC Last administered on 11/24/18 17:30; Admin Dose 6 UNIT; Start 11/24/18 at 17:35 Insulin Glargine (Lantus) 22 units DAILY@2000 SC Last administered on 11/24/18 20:31; Admin Dose 22 UNITS; Start 11/23/18 at 20:00 Metformin HCl (Glucophage) 500 mg WITH BREAKFAST PO Last administered on 11/25/18 08:00; Admin Dose 500 MG; Start 11/24/18 at 07:35 Metformin HCl (Glucophage) 500 mg WITH DINNER PO Last administered on 11/24/18 17:29; Admin Dose 500 MG; Start 11/24/18 at 17:35 Diagnostic Test (Pha) (Accu-Chek) 1 ea AC MEALS AND BEDTIME XX Last administered on 11/24/18 20:31; Admin Dose 1 EA; Start 11/23/18 at 21:00 Lisinopril (Zestril) 5 mg DAILY PO ; Start 11/25/18 at 09:00 Enoxaparin Sodium (Lovenox) 40 mg DAILY SC Last administered on 11/25/18at 08:18; Admin Dose 40 MG; Start 11/25/18 at 09:00 Assessment/Plan Additional Assessment/Plan rehab- 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 Continue current treatment plan. ASA /LOVENOX Hypertension. Coronary artery disease. CABG. Hyperlipidemia. Diabetes mellitus type 2.OOC CONT SCHEDULED AND PRN AGENTS Acute on chronic kidney disease.CREAT INCREASE TO 1.68 RECHECK BMP 2- 3 DAYS MALU BROOKS MD Nov 25, 2018 10:31
--- NOTE | 2018-11-25 12:57 | CONS ---
Consult Date/Type/Reason Admit Date/Time Nov 21, 2018 at 16:58 Initial Consult Date Requesting Provider: JAMES WILLIS MD Date/Time of Note DATE: 11/25/18 TIME: 12:55 Subjective NO acute events - pt comfortable - BP in good range - will monitor clinically now. ROS: No fever, no chills, no nausea, no vomiting, no diarrhea/constipation No recent weight changes No chest pain, no PND, no orthopnea - mild SOB No dizziness, blurred vision No thirst, no heat or cold intolerance Objective Vitals Vital Signs Date Temp Pulse Resp B/P (MAP) Pulse Ox O2 O2 Flow FiO2 Time Delivery Rate 11/25/18 98.1 87 18 128/78 92 Room Air 07:00 (95) Intake and Output 11/24/18 11/24/18 11/25/18 1515:00 23:00 07:00 IntakeIntake Total 1100 ml 800 ml OutputOutput Total 1 ml BalanceBalance 1099 ml 800 ml Exam General: WN/WD/NAD, AOx 3 HEENT: Unicetric/atraumatic/EOMI (follow commands) NECK: JVD elevated, no thyromegaly Lymph: no lymphadenopathy HEART: regular with no S3, II/ systolic murmur at apex LUNGS: Coarse sounds ABD: soft, NT, ND, +BS : Intact Neuro: non focal SKIN: chronic changes EXT: trace edema Results/Medications Result Diagram: 11/25/18 0626 11/25/18 0626 Results 24 hrs Laboratory Tests Test 11/24/18 17:27 11/24/18 20:27 11/25/18 02:16 11/25/18 06:26 Bedside Glucose 137 185 164 White Blood Count 6.9 # Red Blood Count 5.64 Hemoglobin 14.8 Hematocrit 46.7 Mean Corpuscular 82.8 Volume Mean Corpuscular 26.2 L Hemoglobin Mean Corpuscular 31.7 L Hemoglobin Concent Red Cell 15.0 H Distribution Width Platelet Count 217 Mean Platelet Volume 10.4 Immature 0.700 H Granulocytes % Neutrophils % 64.0 Lymphocytes % 28.0 Monocytes % 4.6 Eosinophils % 2.3 Basophils % 0.4 Nucleated Red Blood 0.0 Cells % Immature 0.050 H Granulocytes # Neutrophils # 4.4 Lymphocytes # 1.9 Monocytes # 0.3 Eosinophils # 0.2 Basophils # 0.0 Nucleated Red Blood 0.0 Cells # Sodium Level 140 Potassium Level 4.4 Chloride Level 99 Carbon Dioxide Level 31 Anion Gap 10 Blood Urea Nitrogen 45 H Creatinine 1.68 H Est Glomerular 41 L Filtrat Rate mL/min Glucose Level 222 H Calcium Level 9.6 Test 11/25/18 07:49 11/25/18 11:56 Bedside Glucose 236 H 207 Home Meds Active Scripts Clindamycin Hcl* (Clindamycin Hcl*) 300 Mg Capsule, 300 MG PO Q6 for 14 Days, CAP Prov:DENY VELASQUEZ MD 11/18/16 Metformin Hcl (Glucophage) 500 Mg Tablet, 1000 MG PO BID WITH MEALS for 28 Days, TAB Prov:DENY VELASQUEZ MD 11/18/16 Linagliptin (TRADJENTA) 5 Mg Tablet, 5 MG PO DAILY for 28 Days, TAB Prov:DENY VELASQUEZ MD 11/18/16 Insulin Glargine* (Lantus*) 100 Unit/Ml Soln, 25 UNIT SC DAILY@20 for 28 Days Prov:DENY VELASQUEZ MD 11/18/16 Insulin Aspart* (Novolog Insulin Pen*) 100 Unit/Ml Soln, 10 UNIT SC WITH MEALS for 28 Days Prov:DENY VELASQUEZ MD 11/18/16 Pantoprazole* (Pantoprazole*) 40 Mg Tablet.dr, 40 MG PO DAILY@06 for 14 Days Prov:DENY VELASQUEZ MD 11/18/16 L Acidophil/B Lactis/B Longum (FLORAJEN3 CAPSULE) 460 Mg Capsule, 1 EACH PO BID for 28 Days, CAP Prov:DENY VELASQUEZ MD 11/18/16 Metoprolol Succinate* (Toprol XL*) 100 Mg Tab.sr.24h, 100 MG PO DAILY for 28 Days Prov:DENY VELASQUEZ MD 11/18/16 Reported Medications Metformin Hcl* (Metformin Hcl*) 500 Mg Tablet, 500 MG PO WITH BREAKFAST, #30 TAB 10/22/15 Aspirin* (Aspirin* EC) 81 Mg Tablet.dr, 81 MG PO DAILY, TAB 10/22/15 Lisinopril* (Lisinopril*) 20 Mg Tablet, 20 MG PO DAILY, #30 TAB 10/22/15 Medications Current Medications Docusate Sodium (Colace) 100 mg BID PO Last administered on 11/25/18at 08:01; Admin Dose 100 MG; Start 11/21/18 at 21:00 Senna (Senokot) 1 tab HS PO Last administered on 11/24/18 20:28; Admin Dose 1 TAB; Start 11/21/18 at 21:00 Magnesium Hydroxide (Milk Of Mag) 30 ml BID PRN PO CONSTIPATION Last administered on 11/23/18 00:38; Admin Dose 30 ML; Start 11/21/18 at 17:30 Lactulose (Enulose) 20 gm DAILY PRN PO CONSTIPATION Last administered on 11/24/18at 04:13; Admin Dose 20 GM; Start 11/21/18 at 17:30 Bisacodyl (Dulcolax Supp) 10 mg DAILY PRN [place] CONSTIPATION; Start 11/21/18 at 17:30 Acetaminophen (Tylenol Tab) 650 mg Q4H PRN PO PAIN Last administered on 11/21/18 22:19; Admin Dose 650 MG; Start 11/21/18 at 17:30 Miscellaneous Information (Pending [facility] Order For Wound Care) This patient bates... PRN PRN XX WOUND CARE; Start 11/21/18 at 17:30 Diagnostic Test (Pha) (Accu-Chek) 1 ea 02 XX Last administered on 11/25/18at 02:36; Admin Dose 1 EA; Start 11/22/18 at 02:00 Insulin Aspart (Novolog Insulin Pen) NOVOLOG *MILD* ALGORITHM WITH MEALS BEDTIME SC Last administered on 11/25/18 12:00; Admin Dose 2 UNIT; Start 11/21/18 at 21:00 Glucagon (Glucagen) 1 mg PRN PRN IM DECREASED GLUCOSE; Start 11/21/18 at 18:00 Glucose (Glutose) 15 gm PRN PRN PO DECREASED GLUCOSE; Start 11/21/18 at 18:00 Glucose (Glutose) 22.5 gm PRN PRN PO DECREASED GLUCOSE; Start 11/21/18 at 18:00 Aspirin (Aspirin) 81 mg DAILY PO Last administered on 11/25/18 08:01; Admin Dose 81 MG; Start 11/22/18 at 09:00 Atorvastatin Calcium (Lipitor) 40 mg HS PO Last administered on 11/24/18 20:28; Admin Dose 40 MG; Start 11/21/18 at 21:00 Clopidogrel Bisulfate (plaVIX) 75 mg DAILY PO Last administered on 11/25/18 08:01; Admin Dose 75 MG; Start 11/22/18 at 09:00 Hydralazine HCl (Apresoline) 5 mg Q6H PRN IV ELEVATED BLOOD PRESSURE; Start 11/21/18 at 18:00 Linagliptin (Tradjenta) 5 mg DAILY PO Last administered on 11/25/18 08:02; Admin Dose 5 MG; Start 11/22/18 at 09:00 Metoprolol Succinate (Toprol Xl) 50 mg DAILY PO Last administered on 11/23/18 13:25; Admin Dose 50 MG; Start 11/22/18 at 09:00 Mupirocin (Bactroban) 1 applic BID TOP Last administered on 11/25/18 08:02; Admin Dose 1 APPLIC; Start 11/21/18 at 21:00 Pantoprazole (Protonix Tab) 40 mg DAILY@06 PO Last administered on 11/25/18 06:01; Admin Dose 40 MG; Start 11/22/18 at 06:00 Insulin Aspart (Novolog Insulin Pen) 6 unit WITH BREAKFAST SC Last administered on 11/25/18 07:59; Admin Dose 6 UNIT; Start 11/24/18 at 07:35 Insulin Aspart (Novolog Insulin Pen) 6 unit WITH LUNCH SC Last administered on 11/25/18 12:01; Admin Dose 6 UNIT; Start 11/24/18 at 12:00 Insulin Aspart (Novolog Insulin Pen) 6 unit WITH DINNER SC Last administered on 11/24/18 17:30; Admin Dose 6 UNIT; Start 11/24/18 at 17:35 Insulin Glargine (Lantus) 22 units DAILY@2000 SC Last administered on 11/24/18 20:31; Admin Dose 22 UNITS; Start 11/23/18 at 20:00 Metformin HCl (Glucophage) 500 mg WITH BREAKFAST PO Last administered on 11/25/18 08:00; Admin Dose 500 MG; Start 11/24/18 at 07:35 Metformin HCl (Glucophage) 500 mg WITH DINNER PO Last administered on 11/24/18 17:29; Admin Dose 500 MG; Start 11/24/18 at 17:35 Diagnostic Test (Pha) (Accu-Chek) 1 ea AC MEALS AND BEDTIME XX Last administered on 11/25/18 12:01; Admin Dose 1 EA; Start 11/23/18 at 21:00 Lisinopril (Zestril) 5 mg DAILY PO ; Start 11/25/18 at 09:00 Enoxaparin Sodium (Lovenox) 40 mg DAILY SC Last administered on 11/25/18at 08:18; Admin Dose 40 MG; Start 11/25/18 at 09:00 Assessment/Plan Hospital Course (Demo Recall) 1. Hypertension-reasonable control - con't to monitor now. 2. History of coronary artery disease, status post coronary artery bypass grafting with a known occlusion of one graft by catheterization 2015. Negative troponin x3 here. No chest pain.-Echo EF 50%, no sig valve abnl - no intervention planned. 3. Dyslipidemia- treated. 4. Right arm weakness. Rule out acute cerebrovascular accident. Negative head CT at outside hospital. Now s/p MRI revealing acute CVA. No sig arrythmias noted on tele - defer to rehab team. 5. Diabetes mellitus- on meds - keep euglycemic. 6. Renal failure from outside hospital - CR 1.68 - avoid nephrotoxic meds. TOSHIA LUND MD Nov 25, 2018 12:57
--- NOTE | 2018-11-25 13:38 | PN ---
Date/Time of Note Date/Time of Note DATE: 11/25/18 TIME: 13:29 Assessment/Plan VTE Prophylaxis Risk score (from Ns)>0 risk: 5 SCD applied (from Nsg): Yes Pharmacological prophylaxis: LMWH Lines/Catheters IV Catheter Type (from Nrs): [place] Urinary Cath still in place: No Assessment/Plan Hospital Course 1 Right arm weakness due to ischemic stroke, same. MRI brain 11/20/18 showed : Acute improved, ischemic, infarcts in the left posterior frontal paige radiography and left external capsule 2. DM type II uncontrolled with hyperglycemia, 3. Obesity 4. Hypertension, controlled 5. SIRS, resolved 6. Hx of 3 vessel heart bypass, 2003 7. hx of herniorrhaphy left 8. Injury of the right big toe, healed 9. Hx of cellulitis 10. VLADIMIR vs Chronic kidney disease, now creatinine increased to 1.68 due to metformin twice daily. Prerenal azotemia Assessment/Plan -fall precaution -Discussed diagnosis, treatment, risks benefits, side effects and alternate treatment. Patient reported not much improvement -Medication Metformin, their effects and side effects including metabolic, affect on heart were discussed. -Compliance was addressed, no outside food. -Care coordinated with Dr Duron -hyperglycemic, better -Continue with Lovenox for DVT prophylaxis -Spoke to nursing staff -on Tradjenta, Metformin BID -watch creatinine, now rise up to 1.68 -c.w PT/OT, has a specially designed walker -C w ASA 81 and Plavix 75 -For hyperlipidemia low-fat diet and and atorvastatin 40 mg -Lisinopril and metoprolol per cardiology BP control -Continue with Lantus to 22 and continue with his mealtime insulin to 6 -cardiology consult dr Bonner -neurology consult Dr Matthews is appreciated Result Diagram: 11/25/18 0626 11/25/18 0626 Results 24hrs Laboratory Tests Test 11/24/18 17:27 11/24/18 20:27 11/25/18 02:16 11/25/18 06:26 Bedside Glucose 137 185 164 White Blood Count 6.9 # Red Blood Count 5.64 Hemoglobin 14.8 Hematocrit 46.7 Mean Corpuscular 82.8 Volume Mean Corpuscular 26.2 L Hemoglobin Mean Corpuscular 31.7 L Hemoglobin Concent Red Cell 15.0 H Distribution Width Platelet Count 217 Mean Platelet Volume 10.4 Immature 0.700 H Granulocytes % Neutrophils % 64.0 Lymphocytes % 28.0 Monocytes % 4.6 Eosinophils % 2.3 Basophils % 0.4 Nucleated Red Blood 0.0 Cells % Immature 0.050 H Granulocytes # Neutrophils # 4.4 Lymphocytes # 1.9 Monocytes # 0.3 Eosinophils # 0.2 Basophils # 0.0 Nucleated Red Blood 0.0 Cells # Sodium Level 140 Potassium Level 4.4 Chloride Level 99 Carbon Dioxide Level 31 Anion Gap 10 Blood Urea Nitrogen 45 H Creatinine 1.68 H Est Glomerular 41 L Filtrat Rate mL/min Glucose Level 222 H Calcium Level 9.6 Test 11/25/18 07:49 11/25/18 11:56 Bedside Glucose 236 H 207 Subjective 24 Hr Interval Summary Free Text/Dictation Constitutional: No fever, cough or chills, no overnight events. EYE: No eye disease. No visual problems. CARDIOVASCULAR: No chest pain. No tachycardia. No Palpitation. RESPIRATORY: No breathing problems. No COPD or disease of respiration. GASTROINTESTINAL: No Nausea. No Vomiting. No constipation. Endocrine: No excessive thirst, No polyuria, No hot intolerance. No cold intolerance. Patient has diabetes mellitus MUSCULO-SKELETAL: Patient reported no improvement in the weakness of the right arm even though he is his few times a day physical and Occupational Therapy NEUROLOGICAL: Alert oriented in person, place, time and situation. Right arm weakness, patient unable to raise right arm above the shoulder. No Headache, Confusion. No Seizures. Patient reported be of balance sometimes. Unable to check balance patient is eating. Exam/Review of Systems Exam Vitals Vital Signs Date Temp Pulse Resp B/P (MAP) Pulse Ox O2 O2 Flow FiO2 Time Delivery Rate 11/25/18 98.1 87 18 128/78 92 Room Air 07:00 (95) Intake and Output 11/24/18 11/24/18 11/25/18 1515:00 23:00 07:00 IntakeIntake Total 1100 ml 800 ml OutputOutput Total 1 ml BalanceBalance 1099 ml 800 ml Exam No acute distress, no events overnight. Eyes: anicteric, EOM's intact, no pallor Nose: no rhinorrhea Neck: supple, no thyromegaly, no carotid bruits Lungs: clear bilaterally. CVS: regular rate and rhythm, no murmurs Abdomen: soft, bowel sounds present, no hepatosplenomegally, no masses, no rebound or guarding. Rectal: differed. External genitalia: no lesions, no Archer. Extremities: Trace edema, DP palpable Neuro: alert and oriented x 3 Gait: abnormal, has a walker Motor strength ble : 5+/5+, right arm weakness, starting contracture Sensory exam is abnormal; no sensation in the right upper arm, bilaterally decreased sensation in lower extremity Deep tendon reflexes: normal, Babisky reflexes are absent bilaterally Skin: no lesions Results Results 24hrs Laboratory Tests Test 11/24/18 17:27 11/24/18 20:27 11/25/18 02:16 11/25/18 06:26 Bedside Glucose 137 185 164 White Blood Count 6.9 # Red Blood Count 5.64 Hemoglobin 14.8 Hematocrit 46.7 Mean Corpuscular 82.8 Volume Mean Corpuscular 26.2 L Hemoglobin Mean Corpuscular 31.7 L Hemoglobin Concent Red Cell 15.0 H Distribution Width Platelet Count 217 Mean Platelet Volume 10.4 Immature 0.700 H Granulocytes % Neutrophils % 64.0 Lymphocytes % 28.0 Monocytes % 4.6 Eosinophils % 2.3 Basophils % 0.4 Nucleated Red Blood 0.0 Cells % Immature 0.050 H Granulocytes # Neutrophils # 4.4 Lymphocytes # 1.9 Monocytes # 0.3 Eosinophils # 0.2 Basophils # 0.0 Nucleated Red Blood 0.0 Cells # Sodium Level 140 Potassium Level 4.4 Chloride Level 99 Carbon Dioxide Level 31 Anion Gap 10 Blood Urea Nitrogen 45 H Creatinine 1.68 H Est Glomerular 41 L Filtrat Rate mL/min Glucose Level 222 H Calcium Level 9.6 Test 11/25/18 07:49 11/25/18 11:56 Bedside Glucose 236 H 207 Medications Medication Current Medications Docusate Sodium (Colace) 100 mg BID PO Last administered on 11/25/18at 08:01; Admin Dose 100 MG; Start 11/21/18 at 21:00 Senna (Senokot) 1 tab HS PO Last administered on 11/24/18at 20:28; Admin Dose 1 TAB; Start 11/21/18 at 21:00 Magnesium Hydroxide (Milk Of Mag) 30 ml BID PRN PO CONSTIPATION Last administered on 11/23/18at 00:38; Admin Dose 30 ML; Start 11/21/18 at 17:30 Lactulose (Enulose) 20 gm DAILY PRN PO CONSTIPATION Last administered on 9at 04:13; Admin Dose 20 GM; Start 11/21/18 at 17:30 Bisacodyl (Dulcolax Supp) 10 mg DAILY PRN [place] CONSTIPATION; Start 11/21/18 at 17:30 Acetaminophen (Tylenol Tab) 650 mg Q4H PRN PO PAIN Last administered on 11/21/18at 22:19; Admin Dose 650 MG; Start 11/21/18 at 17:30 Miscellaneous Information (Pending Santyl Order For Wound Care) This patient bates... PRN PRN XX WOUND CARE; Start 11/21/18 at 17:30 Diagnostic Test (Pha) (Accu-Chek) 1 ea 02 XX Last administered on 11/25/18at 02:36; Admin Dose 1 EA; Start 11/22/18 at 02:00 Insulin Aspart (Novolog Insulin Pen) NOVOLOG *MILD* ALGORITHM WITH MEALS BEDTIME SC Last administered on 11/25/18at 12:00; Admin Dose 2 UNIT; Start 11/21/18 at 21:00 Glucagon (Glucagen) 1 mg PRN PRN IM DECREASED GLUCOSE; Start 11/21/18 at 18:00 Glucose (Glutose) 15 gm PRN PRN PO DECREASED GLUCOSE; Start 11/21/18 at 18:00 Glucose (Glutose) 22.5 gm PRN PRN PO DECREASED GLUCOSE; Start 11/21/18 at 18:00 Aspirin (Aspirin) 81 mg DAILY PO Last administered on 11/25/18at 08:01; Admin Dose 81 MG; Start 11/22/18 at 09:00 Atorvastatin Calcium (Lipitor) 40 mg HS PO Last administered on 11/24/18at 20:28; Admin Dose 40 MG; Start 11/21/18 at 21:00 Clopidogrel Bisulfate (plaVIX) 75 mg DAILY PO Last administered on 11/25/18at 08:01; Admin Dose 75 MG; Start 11/22/18 at 09:00 Hydralazine HCl (Apresoline) 5 mg Q6H PRN IV ELEVATED BLOOD PRESSURE; Start 11/21/18 at 18:00 Linagliptin (Tradjenta) 5 mg DAILY PO Last administered on 11/25/18at 08:02; Admin Dose 5 MG; Start 11/22/18 at 09:00 Metoprolol Succinate (Toprol Xl) 50 mg DAILY PO Last administered on 11/23/18 13:25; Admin Dose 50 MG; Start 11/22/18 at 09:00 Mupirocin (Bactroban) 1 applic BID TOP Last administered on 11/25/18 08:02; Admin Dose 1 APPLIC; Start 11/21/18 at 21:00 Pantoprazole (Protonix Tab) 40 mg DAILY@06 PO Last administered on 11/25/18 06:01; Admin Dose 40 MG; Start 11/22/18 at 06:00 Insulin Aspart (Novolog Insulin Pen) 6 unit WITH BREAKFAST SC Last administered on 11/25/18 07:59; Admin Dose 6 UNIT; Start 11/24/18 at 07:35 Insulin Aspart (Novolog Insulin Pen) 6 unit WITH LUNCH SC Last administered on 11/25/18 12:01; Admin Dose 6 UNIT; Start 11/24/18 at 12:00 Insulin Aspart (Novolog Insulin Pen) 6 unit WITH DINNER SC Last administered on 11/24/18 17:30; Admin Dose 6 UNIT; Start 11/24/18 at 17:35 Insulin Glargine (Lantus) 22 units DAILY@2000 SC Last administered on 11/24/18 20:31; Admin Dose 22 UNITS; Start 11/23/18 at 20:00 Metformin HCl (Glucophage) 500 mg WITH BREAKFAST PO Last administered on 11/25/18 08:00; Admin Dose 500 MG; Start 11/24/18 at 07:35 Metformin HCl (Glucophage) 500 mg WITH DINNER PO Last administered on 11/24/18 17:29; Admin Dose 500 MG; Start 11/24/18 at 17:35 Diagnostic Test (Pha) (Accu-Chek) 1 ea AC MEALS AND BEDTIME XX Last administered on 11/25/18 12:01; Admin Dose 1 EA; Start 11/23/18 at 21:00 Lisinopril (Zestril) 5 mg DAILY PO ; Start 11/25/18 at 09:00 Enoxaparin Sodium (Lovenox) 40 mg DAILY SC Last administered on 11/25/18 08 :18; Admin Dose 40 MG; Start 11/25/18 at 09:00 ADAN PALMA Nov 25, 2018 13:38
[2018-11-25 14:00] VITALS: BP 130/76; PULSE 90; RESP 18
[2018-11-25 19:29] VITALS: BP 132/79; RESP 18
[2018-11-25] MEDS: ATORVASTATIN 40 MG TAB PO SCH (20:23)
[2018-11-25] MEDS: SENNA TAB PO SCH (20:23)
[2018-11-25] MEDS: INSULIN GLARGINE [LANTus] (100 UNITS/ML) SYG SC SCH (20:27)
[2018-11-26 02:00] VITALS: BP 128/77; PULSE 88; RESP 18
[2018-11-26] MEDS: ACCU-CHEK XX SCH ×5 (02:04→20:20)
[2018-11-26] MEDS: PANTOPRAZOLE (EC) 40 MG TAB PO SCH (06:01)
[2018-11-26 07:30] VITALS: BP 127/88; PULSE 97; RESP 20
[2018-11-26] MEDS: INSULIN ASPART [NOVOLOG] 3 ML PEN SC SCH ×7 (07:35→20:03)
[2018-11-26] MEDS: LINAGLIPTIN 5 MG TABLET PO SCH (07:49)
[2018-11-26] MEDS: metFORMIN 500 MG TAB PO SCH ×2 (07:49→17:16)
[2018-11-26] MEDS: ASPIRIN 81 MG TAB PO SCH (08:42)
[2018-11-26] MEDS: METOPROLOL (XL) 50 MG TAB PO SCH (08:43)
[2018-11-26] MEDS: DOCUSATE SODIUM 100 MG CAP PO SCH ×2 (08:43→20:15)
[2018-11-26] MEDS: CLOPIDOGREL 75 MG TAB PO SCH (08:43)
[2018-11-26] MEDS: LISINOPRIL 5 MG TAB PO SCH (08:43)
[2018-11-26] MEDS: ENOXAPARIN 40 MG/0.4 ML SYG SC SCH (08:44)
[2018-11-26] MEDS: MUPIROCIN 2% 22 GM OINT TOP SCH (08:47)
[2018-11-26] MEDS: BALSAM PERU/CASTOR OIL 60 GM TUBE TOP SCH (08:47)
--- NOTE | 2018-11-26 12:04 | CONS ---
Consult Date/Type/Reason Admit Date/Time Nov 21, 2018 at 16:58 Initial Consult Date Requesting Provider: JAMES WILLIS MD Date/Time of Note DATE: 11/26/18 TIME: 12:01 Subjective No acute events - BP in good range - con't rehab as tolerated - no CP now. ROS: No fever, no chills, no nausea, no vomiting, no diarrhea/constipation No recent weight changes No chest pain, no PND, no orthopnea No dizziness, blurred vision No thirst, no heat or cold intolerance Objective Vitals Vital Signs Date Temp Pulse Resp B/P (MAP) Pulse Ox O2 O2 Flow FiO2 Time Delivery Rate 11/26/18 97.4 97 20 127/88 97 Room Air 07:30 (101) Intake and Output 11/25/18 11/25/18 11/26/18 1515:00 23:00 07:00 IntakeIntake Total 1200 ml 240 ml OutputOutput Total 600 ml BalanceBalance 600 ml 240 ml Exam General: WN/WD/NAD, AOx 3 HEENT: Unicetric/atraumatic/EOMI (follows commands) NECK: JVD elevated, no thyromegaly Lymph: no lymphadenopathy HEART: regular with no S3, II/ systolic murmur at apex LUNGS: Coarse sounds ABD: soft, NT, ND, +BS : Intact Neuro: non focal SKIN: chronic changes EXT: trace edema, R UE decreased ROM Results/Medications Result Diagram: 11/26/18 0620 11/26/18 0620 Results 24 hrs Laboratory Tests Test 11/25/18 17:43 11/25/18 20:21 11/26/18 01:59 11/26/18 02:15 Bedside Glucose 111 184 135 Urine Color YELLOW Urine Clarity CLEAR Urine pH 5.0 Urine Specific 1.016 [place] Urine Ketones NEGATIVE Urine Nitrite NEGATIVE Urine Bilirubin NEGATIVE Urine Urobilinogen NEGATIVE Urine Leukocyte NEGATIVE Esterase Urine Microscopic 0 RBC Urine Microscopic 0 WBC Urine Mucus FEW A Urine Hemoglobin NEGATIVE Urine Glucose NEGATIVE Urine Total Protein 2+ H Test 11/26/18 06:20 11/26/18 07:34 11/26/18 11:47 White Blood Count 5.2 # Red Blood Count 5.55 Hemoglobin 14.5 Hematocrit 46.1 Mean Corpuscular 83.1 Volume Mean Corpuscular 26.1 L Hemoglobin Mean Corpuscular 31.5 L Hemoglobin Concent Red Cell 15.3 H Distribution Width Platelet Count 214 Mean Platelet Volume 10.6 H Immature 0.800 H Granulocytes % Neutrophils % 59.8 Lymphocytes % 29.6 Monocytes % 6.3 Eosinophils % 2.9 Basophils % 0.6 Nucleated Red Blood 0.0 Cells % Immature 0.040 H Granulocytes # Neutrophils # 3.1 Lymphocytes # 1.5 Monocytes # 0.3 Eosinophils # 0.2 Basophils # 0.0 Nucleated Red Blood 0.0 Cells # Sodium Level 141 Potassium Level 5.3 H Chloride Level 103 Carbon Dioxide Level 30 Anion Gap 8 Blood Urea Nitrogen 39 H Creatinine 1.41 H Est Glomerular 50 L Filtrat Rate mL/min Glucose Level 135 # Calcium Level 9.7 Bedside Glucose 136 181 Home Meds Active Scripts Clindamycin Hcl* (Clindamycin Hcl*) 300 Mg Capsule, 300 MG PO Q6 for 14 Days, CAP Prov:DENY VELASQUEZ MD 11/18/16 Metformin Hcl (Glucophage) 500 Mg Tablet, 1000 MG PO BID WITH MEALS for 28 Days, TAB Prov:DENY VELASQUEZ MD 11/18/16 Linagliptin (TRADJENTA) 5 Mg Tablet, 5 MG PO DAILY for 28 Days, TAB Prov:DENY VELASQUEZ MD 11/18/16 Insulin Glargine* (Lantus*) 100 Unit/Ml Soln, 25 UNIT SC DAILY@20 for 28 Days Prov:DENY VELASQUEZ MD 11/18/16 Insulin Aspart* (Novolog Insulin Pen*) 100 Unit/Ml Soln, 10 UNIT SC WITH MEALS for 28 Days Prov:DENY VELASQUEZ MD 11/18/16 Pantoprazole* (Pantoprazole*) 40 Mg Tablet.dr, 40 MG PO DAILY@06 for 14 Days Prov:DENY VELASQUEZ MD 11/18/16 L Acidophil/B Lactis/B Longum (FLORAJEN3 CAPSULE) 460 Mg Capsule, 1 EACH PO BID for 28 Days, CAP Prov:DENY VELASQUEZ MD 11/18/16 Metoprolol Succinate* (Toprol XL*) 100 Mg Tab.sr.24h, 100 MG PO DAILY for 28 Days Prov:DENY VELASQUEZ MD 11/18/16 Reported Medications Metformin Hcl* (Metformin Hcl*) 500 Mg Tablet, 500 MG PO WITH BREAKFAST, #30 TAB 10/22/15 Aspirin* (Aspirin* EC) 81 Mg Tablet.dr, 81 MG PO DAILY, TAB 10/22/15 Lisinopril* (Lisinopril*) 20 Mg Tablet, 20 MG PO DAILY, #30 TAB 10/22/15 Medications Current Medications Docusate Sodium (Colace) 100 mg BID PO Last administered on 11/26/18at 08:43; Admin Dose 100 MG; Start 11/21/18 at 21:00 Senna (Senokot) 1 tab HS PO Last administered on 11/25/18at 20:23; Admin Dose 1 TAB; Start 11/21/18 at 21:00 Magnesium Hydroxide (Milk Of Mag) 30 ml BID PRN PO CONSTIPATION Last administered on 11/23/18at 00:38; Admin Dose 30 ML; Start 11/21/18 at 17:30 Lactulose (Enulose) 20 gm DAILY PRN PO CONSTIPATION Last administered on 11/24/18at 04:13; Admin Dose 20 GM; Start 11/21/18 at 17:30 Bisacodyl (Dulcolax Supp) 10 mg DAILY PRN [place] CONSTIPATION; Start 11/21/18 at 17:30 Acetaminophen (Tylenol Tab) 650 mg Q4H PRN PO PAIN Last administered on 11/21/18at 22:19; Admin Dose 650 MG; Start 11/21/18 at 17:30 Miscellaneous Information (Pending [facility] Order For Wound Care) This patient bates... PRN PRN XX WOUND CARE; Start 11/21/18 at 17:30 Diagnostic Test (Pha) (Accu-Chek) 1 ea 02 XX Last administered on 11/26/18at 02:04; Admin Dose 1 EA; Start 11/22/18 at 02:00 Insulin Aspart (Novolog Insulin Pen) NOVOLOG *MILD* ALGORITHM WITH MEALS BEDTIME SC Last administered on 11/26/18at 11:56; Admin Dose 2 UNIT; Start 11/21/18 at 21:00 Glucagon (Glucagen) 1 mg PRN PRN IM DECREASED GLUCOSE; Start 11/21/18 at 18:00 Glucose (Glutose) 15 gm PRN PRN PO DECREASED GLUCOSE; Start 11/21/18 at 18:00 Glucose (Glutose) 22.5 gm PRN PRN PO DECREASED GLUCOSE; Start 11/21/18 at 18:00 Aspirin (Aspirin) 81 mg DAILY PO Last administered on 11/26/18 08:42; Admin Dose 81 MG; Start 11/22/18 at 09:00 Atorvastatin Calcium (Lipitor) 40 mg HS PO Last administered on 11/25/18 20:23; Admin Dose 40 MG; Start 11/21/18 at 21:00 Clopidogrel Bisulfate (plaVIX) 75 mg DAILY PO Last administered on 11/26/18 08:43; Admin Dose 75 MG; Start 11/22/18 at 09:00 Hydralazine HCl (Apresoline) 5 mg Q6H PRN IV ELEVATED BLOOD PRESSURE; Start 11/21/18 at 18:00 Linagliptin (Tradjenta) 5 mg DAILY PO Last administered on 11/26/18 07:49; Admin Dose 5 MG; Start 11/22/18 at 09:00 Metoprolol Succinate (Toprol Xl) 50 mg DAILY PO Last administered on 11/23/18 13:25; Admin Dose 50 MG; Start 11/22/18 at 09:00 Pantoprazole (Protonix Tab) 40 mg DAILY@06 PO Last administered on 11/26/18 06:01; Admin Dose 40 MG; Start 11/22/18 at 06:00 Insulin Aspart (Novolog Insulin Pen) 6 unit WITH BREAKFAST SC Last administered on 11/26/18 07:56; Admin Dose 6 UNIT; Start 11/24/18 at 07:35 Insulin Aspart (Novolog Insulin Pen) 6 unit WITH LUNCH SC Last administered on 11/26/18 11:57; Admin Dose 6 UNIT; Start 11/24/18 at 12:00 Insulin Aspart (Novolog Insulin Pen) 6 unit WITH DINNER SC Last administered on 11/25/18 17:51; Admin Dose 6 UNIT; Start 11/24/18 at 17:35 Insulin Glargine (Lantus) 22 units DAILY@2000 SC Last administered on 11/25/18 20:27; Admin Dose 22 UNITS; Start 11/23/18 at 20:00 Metformin HCl (Glucophage) 500 mg WITH BREAKFAST PO Last administered on 11/26/18 07:49; Admin Dose 500 MG; Start 11/24/18 at 07:35 Metformin HCl (Glucophage) 500 mg WITH DINNER PO Last administered on 11/25/18 17:50; Admin Dose 500 MG; Start 11/24/18 at 17:35 Diagnostic Test (Pha) (Accu-Chek) 1 ea AC MEALS AND BEDTIME XX Last administered on 11/26/18at 11:57; Admin Dose 1 EA; Start 11/23/18 at 21:00 Lisinopril (Zestril) 5 mg DAILY PO ; Start 11/25/18 at 09:00 Enoxaparin Sodium (Lovenox) 40 mg DAILY SC Last administered on 11/26/18at 08:44; Admin Dose 40 MG; Start 11/25/18 at 09:00 Assessment/Plan Hospital Course (Demo Recall) 1. Hypertension-reasonable control - con't to monitor now. Better now < 130 SBP. 2. History of coronary artery disease, status post coronary artery bypass graf leggett with a known occlusion of one graft by catheterization 2015. Negative troponin x3 here. No chest pain.-Echo EF 50%, no sig valve abnl - no intervention planned. Treated. 3. Dyslipidemia- treated. 4. Right arm weakness. Rule out acute cerebrovascular accident. Negative head CT at outside hospital. Now s/p MRI revealing acute CVA. No sig arrythmias noted on tele - defer to rehab team. Con't rehab. 5. Diabetes mellitus- on meds - keep euglycemic. 6. Renal failure from outside hospital - CR 1.68 - avoid nephrotoxic meds. Cr 1.4 - good urine output now. TOSHIA LUND MD Nov 26, 2018 12:04
--- NOTE | 2018-11-26 12:35 | PN ---
Date/Time of Note Date/Time of Note DATE: 11/26/18 TIME: 12:31 Assessment/Plan VTE Prophylaxis Risk score (from Ns)>0 risk: 4 SCD applied (from [facility] [place] Yes SCD contraindicated: other Pharmacological prophylaxis: LMWH Lines/Catheters IV [facility] [place] Urinary Cath still in place: No Assessment/Plan Hospital Course 1 Right arm weakness due to ischemic stroke, same. MRI brain 11/20/18 showed : Acute improved, ischemic, infarcts in the left posterior frontal paige radiography and left external capsule 2. DM type II controlled with hyperglycemia, controlled now 3. Obesity 4. Hypertension, controlled 5. SIRS, resolved 6. Hx of 3 vessel heart bypass, 2003 7. hx of herniorrhaphy left 8. Injury of the right big toe, healed 9. Hx of cellulitis 10. VLADIMIR vs Chronic kidney disease, now creatinine increased to 1.68 due to metformin twice daily. Prerenal azotemia. Nephrotic syndrome more likely due to diabetes mellitus versus nephrotic sclerosis 11. Hyperkalemia, new Assessment/Plan -Hyperkalemia Spoke to magdaleno Garner blood pressure medication parameters are changed Urinalysis is normal except proteinuria Creatinine decreased today Potassium plasma start Continue with physical/occupational therapy Patient reported weakness in the right upper extremity despite therapy Dr. Huerta's neurology consult is appreciated Hypoglycemic protocol blood sugar under reasonable control Consider discontinue metformin due to GFR 50 and sudden increase in creatinine DVT prophylaxis heparin twice daily im Continue with Tradjenta 1800 ADA diet continue Result Diagram: 11/26/18 0620 11/26/18 0620 Results 24hrs Laboratory Tests Test 11/25/18 17:43 11/25/18 20:21 11/26/18 01:59 11/26/18 02:15 Bedside Glucose 111 184 135 Urine Color YELLOW Urine Clarity CLEAR Urine pH 5.0 Urine Specific 1.016 [place] Urine Ketones NEGATIVE Urine Nitrite NEGATIVE Urine Bilirubin NEGATIVE Urine Urobilinogen NEGATIVE Urine Leukocyte NEGATIVE Esterase Urine Microscopic 0 RBC Urine Microscopic 0 WBC Urine Mucus FEW A Urine Hemoglobin NEGATIVE Urine Glucose NEGATIVE Urine Total Protein 2+ H Test 11/26/18 06:20 11/26/18 07:34 11/26/18 11:47 White Blood Count 5.2 # Red Blood Count 5.55 Hemoglobin 14.5 Hematocrit 46.1 Mean Corpuscular 83.1 Volume Mean Corpuscular 26.1 L Hemoglobin Mean Corpuscular 31.5 L Hemoglobin Concent Red Cell 15.3 H Distribution Width Platelet Count 214 Mean Platelet Volume 10.6 H Immature 0.800 H Granulocytes % Neutrophils % 59.8 Lymphocytes % 29.6 Monocytes % 6.3 Eosinophils % 2.9 Basophils % 0.6 Nucleated Red Blood 0.0 Cells % Immature 0.040 H Granulocytes # Neutrophils # 3.1 Lymphocytes # 1.5 Monocytes # 0.3 Eosinophils # 0.2 Basophils # 0.0 Nucleated Red Blood 0.0 Cells # Sodium Level 141 Potassium Level 5.3 H Chloride Level 103 Carbon Dioxide Level 30 Anion Gap 8 Blood Urea Nitrogen 39 H Creatinine 1.41 H Est Glomerular 50 L Filtrat Rate mL/min Glucose Level 135 # Calcium Level 9.7 Bedside Glucose 136 181 Subjective 24 Hr Interval Summary Free Text/Dictation Constitutional: No fever, cough or chills, no overnight events. EYE: No eye disease. No visual problems. CARDIOVASCULAR: No chest pain. No tachycardia. No Palpitation. RESPIRATORY: No breathing problems. No COPD or disease of respiration. GASTROINTESTINAL: No Nausea. No Vomiting. No constipation. Endocrine: No excessive thirst, No polyuria, No hot intolerance. No cold intolerance. Patient has diabetes mellitus MUSCULO-SKELETAL: Patient reported no improvement in the weakness of the right arm even though he is has physical and Occupational Therapy 3 times a day NEUROLOGICAL: Alert oriented in person, place, time and situation. Right arm weakness, patient unable to raise right arm above the shoulder. No Headache, Confusion. No Seizures. Patient reported be of balance sometimes. Unable to check balance patient is eating. Exam/Review of Systems Exam Vitals Vital Signs Date Temp Pulse Resp B/P (MAP) Pulse Ox O2 O2 Flow FiO2 Time Delivery Rate 11/26/18 97.4 97 20 127/88 97 Room Air 07:30 (101) Intake and Output 11/25/18 11/25/18 11/26/18 1515:00 23:00 07:00 IntakeIntake Total 1200 ml 240 ml OutputOutput Total 600 ml BalanceBalance 600 ml 240 ml Exam No acute distress, no events overnight. Stool yesterday. Sitting in a wheelchair with family around Eyes: anicteric, EOM's intact, no pallor Nose: no rhinorrhea Neck: supple, no thyromegaly, no carotid bruits Lungs: clear bilaterally. Normal air movement CVS: regular rate and rhythm, no murmurs Abdomen: soft, bowel sounds present, no hepatosplenomegally, no masses, no rebound or guarding. Rectal: differed. External genitalia: no lesions, no [place]. Extremities: Trace edema, DP palpable Neuro: alert and oriented x 3 Gait: abnormal, has a walker Motor strength ble : 5+/5+, right arm weakness, starting contracture, no active motion Sensory exam is abnormal; no sensation in the right upper arm, bilaterally decreased sensation in lower extremity Deep tendon reflexes: normal, Babisky reflexes are absent bilaterally Skin: no lesions Results Results 24hrs Laboratory Tests Test 11/25/18 17:43 11/25/18 20:21 11/26/18 01:59 11/26/18 02:15 Bedside Glucose 111 184 135 Urine Color YELLOW Urine Clarity CLEAR Urine pH 5.0 Urine Specific 1.016 [place] Urine Ketones NEGATIVE Urine Nitrite NEGATIVE Urine Bilirubin NEGATIVE Urine Urobilinogen NEGATIVE Urine Leukocyte NEGATIVE Esterase Urine Microscopic 0 RBC Urine Microscopic 0 WBC Urine Mucus FEW A Urine Hemoglobin NEGATIVE Urine Glucose NEGATIVE Urine Total Protein 2+ H Test 11/26/18 06:20 11/26/18 07:34 11/26/18 11:47 White Blood Count 5.2 # Red Blood Count 5.55 Hemoglobin 14.5 Hematocrit 46.1 Mean Corpuscular 83.1 Volume Mean Corpuscular 26.1 L Hemoglobin Mean Corpuscular 31.5 L Hemoglobin Concent Red Cell 15.3 H Distribution Width Platelet Count 214 Mean Platelet Volume 10.6 H Immature 0.800 H Granulocytes % Neutrophils % 59.8 Lymphocytes % 29.6 Monocytes % 6.3 Eosinophils % 2.9 Basophils % 0.6 Nucleated Red Blood 0.0 Cells % Immature 0.040 H Granulocytes # Neutrophils # 3.1 Lymphocytes # 1.5 Monocytes # 0.3 Eosinophils # 0.2 Basophils # 0.0 Nucleated Red Blood 0.0 Cells # Sodium Level 141 Potassium Level 5.3 H Chloride Level 103 Carbon Dioxide Level 30 Anion Gap 8 Blood Urea Nitrogen 39 H Creatinine 1.41 H Est Glomerular 50 L Filtrat Rate mL/min Glucose Level 135 # Calcium Level 9.7 Bedside Glucose 136 181 Medications Medication Current Medications Docusate Sodium (Colace) 100 mg BID PO Last administered on 11/26/18at 08:43; Admin Dose 100 MG; Start 7/16/19 at 21:00 Senna (Senokot) 1 tab HS PO Last administered on 11/25/18at 20:23; Admin Dose 1 TAB; Start 11/21/18 at 21:00 Magnesium Hydroxide (Milk Of Mag) 30 ml BID PRN PO CONSTIPATION Last administered on 11/23/18at 00:38; Admin Dose 30 ML; Start 11/21/18 at 17:30 Lactulose (Enulose) 20 gm DAILY PRN PO CONSTIPATION Last administered on 11/24/18at 04:13; Admin Dose 20 GM; Start 11/21/18 at 17:30 Bisacodyl (Dulcolax Supp) 10 mg DAILY PRN [place] CONSTIPATION; Start 11/21/18 at 17:30 Acetaminophen (Tylenol Tab) 650 mg Q4H PRN PO PAIN Last administered on 11/21/18at 22:19; Admin Dose 650 MG; Start 11/21/18 at 17:30 Miscellaneous Information (Pending [facility] Order For Wound Care) This patient bates... PRN PRN XX WOUND CARE; Start 11/21/18 at 17:30 Diagnostic Test (Pha) (Accu-Chek) 1 ea 02 XX Last administered on 11/26/18at 02:04; Admin Dose 1 EA; Start 11/22/18 at 02:00 Insulin Aspart (Novolog Insulin Pen) NOVOLOG *MILD* ALGORITHM WITH MEALS BEDTIME SC Last administered on 11/26/18at 11:56; Admin Dose 2 UNIT; Start 11/21/18 at 21:00 Glucagon (Glucagen) 1 mg PRN PRN IM DECREASED GLUCOSE; Start 11/21/18 at 18:00 Glucose (Glutose) 15 gm PRN PRN PO DECREASED GLUCOSE; Start 11/21/18 at 18:00 Glucose (Glutose) 22.5 gm PRN PRN PO DECREASED GLUCOSE; Start 11/21/18 at 18:00 Aspirin (Aspirin) 81 mg DAILY PO Last administered on 11/26/18at 08:42; Admin Dose 81 MG; Start 11/22/18 at 09:00 Atorvastatin Calcium (Lipitor) 40 mg HS PO Last administered on 11/25/18at 20:23; Admin Dose 40 MG; Start 11/21/18 at 21:00 Clopidogrel Bisulfate (plaVIX) 75 mg DAILY PO Last administered on 11/26/18 08:43; Admin Dose 75 MG; Start 11/22/18 at 09:00 Hydralazine HCl (Apresoline) 5 mg Q6H PRN IV ELEVATED BLOOD PRESSURE; Start 11/21/18 at 18:00 Linagliptin (Tradjenta) 5 mg DAILY PO Last administered on 11/26/18 07:49; Admin Dose 5 MG; Start 11/22/18 at 09:00 Metoprolol Succinate (Toprol Xl) 50 mg DAILY PO Last administered on 11/23/18 13:25; Admin Dose 50 MG; Start 11/22/18 at 09:00 Pantoprazole (Protonix Tab) 40 mg DAILY@06 PO Last administered on 11/26/18 06:01; Admin Dose 40 MG; Start 11/22/18 at 06:00 Insulin Aspart (Novolog Insulin Pen) 6 unit WITH BREAKFAST SC Last adm inistered on 11/26/18 07:56; Admin Dose 6 UNIT; Start 11/24/18 at 07:35 Insulin Aspart (Novolog Insulin Pen) 6 unit WITH LUNCH SC Last administered on 11/26/18 11:57; Admin Dose 6 UNIT; Start 11/24/18 at 12:00 Insulin Aspart (Novolog Insulin Pen) 6 unit WITH DINNER SC Last administered on 11/25/18 17:51; Admin Dose 6 UNIT; Start 11/24/18 at 17:35 Insulin Glargine (Lantus) 22 units DAILY@2000 SC Last administered on 11/25/18 20:27; Admin Dose 22 UNITS; Start 11/23/18 at 20:00 Metformin HCl (Glucophage) 500 mg WITH BREAKFAST PO Last administered on 11/26/18 07:49; Admin Dose 500 MG; Start 11/24/18 at 07:35 Metformin HCl (Glucophage) 500 mg WITH DINNER PO Last administered on 11/25 17:50; Admin Dose 500 MG; Start 11/24/18 at 17:35 Diagnostic Test (Pha) (Accu-Chek) 1 ea AC MEALS AND BEDTIME XX Last administered on 11/26/18 11:57; Admin Dose 1 EA; Start 11/23/18 at 21:00 Lisinopril (Zestril) 5 mg DAILY PO ; Start 11/25/18 at 09:00 Enoxaparin Sodium (Lovenox) 40 mg DAILY SC Last administered on 11/26/18at 08:44; Admin Dose 40 MG; Start 11/25/18 at 09:00 ADAN PALMA Nov 26, 2018 12:35
[2018-11-26 14:00] VITALS: BP 141/82; PULSE 108; RESP 20
[2018-11-26 20:00] VITALS: BP 148/73; PULSE 94; RESP 18
[2018-11-26] MEDS: INSULIN GLARGINE [LANTus] (100 UNITS/ML) SYG SC SCH (20:14)
[2018-11-26] MEDS: SENNA TAB PO SCH (20:15)
[2018-11-26] MEDS: ATORVASTATIN 40 MG TAB PO SCH (20:15)
[2018-11-27 02:00] VITALS: BP 104/57; PULSE 90; RESP 18
[2018-11-27] MEDS: ACCU-CHEK XX SCH ×5 (02:00→21:15)
[2018-11-27] MEDS: PANTOPRAZOLE (EC) 40 MG TAB PO SCH (06:45)
[2018-11-27 07:30] VITALS: BP 129/76; PULSE 82; RESP 20
[2018-11-27] MEDS: metFORMIN 500 MG TAB PO SCH (07:41)
[2018-11-27] MEDS: LINAGLIPTIN 5 MG TABLET PO SCH (07:42)
[2018-11-27] MEDS: INSULIN ASPART [NOVOLOG] 3 ML PEN SC SCH ×7 (07:45→21:00)
[2018-11-27] MEDS: LISINOPRIL 5 MG TAB PO SCH (08:25)
[2018-11-27] MEDS: DOCUSATE SODIUM 100 MG CAP PO SCH ×2 (08:25→21:13)
[2018-11-27] MEDS: CLOPIDOGREL 75 MG TAB PO SCH (08:26)
[2018-11-27] MEDS: ASPIRIN 81 MG TAB PO SCH (08:26)
[2018-11-27] MEDS: METOPROLOL (XL) 50 MG TAB PO SCH (08:26)
[2018-11-27] MEDS: BALSAM PERU/CASTOR OIL 60 GM TUBE TOP SCH (08:28)
[2018-11-27] MEDS: ENOXAPARIN 40 MG/0.4 ML SYG SC SCH (08:43)
[2018-11-27] MEDS ORDERED: NA POLYST SULFON 15 GM/60 ML BTL PO ONE (12:00)
[2018-11-27] MEDS ORDERED: SODIUM POLYSTYRENE 15 GM KIT (POWDER + SORBITOL) PO SCH ×2 (12:30)
--- NOTE | 2018-11-27 12:33 | CONS ---
Assessment/Plan Assessment/Plan Hospital Course (Demo Recall) IMPRESSION: 1. Hypertension-reasonable control 2. History of coronary artery disease, status post coronary artery bypass grafting with a known occlusion of one graft by catheterization 2016. Negative troponin x3 here. No chest pain.-Echo EF 50%, no sig valve abnl 3. Dyslipidemia. 4. Right arm weakness. Rule out acute cerebrovascular accident. Negative head CT at outside hospital. Now s/p MRI revealing acute CVA. No sig arrythmias noted on tele 5. Diabetes mellitus. 6. Renal failure-acute onset Recc: -Now in rehab -Contineu current BB -zestril held due to ARF -Continue asa/plavix -continue statin -PT/OT Consultation Date/Type/Reason Admit Date/Time Nov 21, 2018 at 16:58 Initial Consult Date 11/22/18 Type of Consult Cardiology Reason for Consultation HTN Requesting Provider: JAMES WILLIS MD Date/Time of Note DATE: 11/27/18 TIME: 12:29 Exam/Review of Systems Vital Signs Vitals Vital Signs Date Temp Pulse Resp B/P (MAP) Pulse Ox O2 O2 Flow FiO2 Time Delivery Rate 11/27/18 97.9 82 20 129/76 96 Room Air 07:30 (93) Intake and Output 11/26/18 11/26/18 11/27/18 1515:00 23:00 07:00 IntakeIntake Total 1000 ml 980 ml 120 ml BalanceBalance 1000 ml 980 ml 120 ml Exam Exam Review of Systems: CONSTITUTIONAL: No fevers, chills. PULMONARY: No sob CARDIOVASCULAR: No chest pain/palpitations GASTROINTESTINAL: No nausea/vomiting. GENITOURINARY: No hematuria/dysuria. MUSCULOSKELETAL: No myagias/arthalgias. PSYCHIATRIC: The patient denies depression. NEUROLOGIC: weakness of the UE Constitutional: alert Psych: no complaints Head: normocephalic ENMT: mucosa pink and moist Neck: supple, jvd (9cm water) Respiratory: clear to auscultation Cardiovascular: regular rate and rhythm Gastrointestinal: soft, non-tender Musculoskeletal: muscle tone (normal) Extremities: edema (none) Labs Result Diagram: 11/27/18 0608 11/27/18 0608 Results 24hrs Laboratory Tests Test 11/26/18 13:59 11/26/18 17:15 11/26/18 19:39 11/27/18 06:08 Potassium Level 5.1 5.4 H Bedside Glucose 165 125 White Blood Count 5.6 Red Blood Count 5.15 Hemoglobin 13.7 L Hematocrit 43.0 Mean Corpuscular 83.5 Volume Mean Corpuscular 26.6 L Hemoglobin Mean Corpuscular 31.9 L Hemoglobin Concent Red Cell 15.0 H Distribution Width Platelet Count 203 Mean Platelet Volume 10.7 H Immature 0.700 H Granulocytes % Neutrophils % 60.7 Lymphocytes % 25.7 Monocytes % 9.3 Eosinophils % 2.9 Basophils % 0.7 Nucleated Red Blood 0.0 Cells % Immature 0.040 H Granulocytes # Neutrophils # 3.4 Lymphocytes # 1.4 Monocytes # 0.5 Eosinophils # 0.2 Basophils # 0.0 Nucleated Red Blood 0.0 Cells # Sodium Level 142 Chloride Level 102 Carbon Dioxide Level 30 Anion Gap 10 Blood Urea Nitrogen 40 H Creatinine 1.49 H Est Glomerular 47 L Filtrat Rate mL/min Glucose Level 170 Calcium Level 9.5 Test 11/27/18 07:40 11/27/18 12:04 Bedside Glucose 142 182 Medications Medications Current Medications Docusate Sodium (Colace) 100 mg BID PO Last administered on 11/27/18at 08:25; Admin Dose 100 MG; Start 11/21/18 at 21:00 Senna (Senokot) 1 tab HS PO Last administered on 11/26/18at 20:15; Admin Dose 1 TAB; Start 11/21/18 at 21:00 Magnesium Hydroxide (Milk Of Mag) 30 ml BID PRN PO CONSTIPATION Last administered on 11/23/18at 00:38; Admin Dose 30 ML; Start 11/21/18 at 17:30 Lactulose (Enulose) 20 gm DAILY PRN PO CONSTIPATION Last administered on 11/24/18at 04:13; Admin Dose 20 GM; Start 11/21/18 at 17:30 Bisacodyl (Dulcolax Supp) 10 mg DAILY PRN [place] CONSTIPATION; Start 11/21/18 at 17:30 Acetaminophen (Tylenol Tab) 650 mg Q4H PRN PO PAIN Last administered on at 22:19; Admin Dose 650 MG; Start 11/21/18 at 17:30 [facility]isc[facility] This patient bates... PRN PRN XX WOUND CARE; Start 11/21/18 at 17:30 Diagnostic Test (Pha) (Accu-Chek) 1 ea 02 XX Last administered on 11/26/18at 02:04; Admin Dose 1 EA; Start 11/22/18 at 02:00 Insulin Aspart (Novolog Insulin Pen) NOVOLOG *MILD* ALGORITHM WITH MEALS BEDTIME SC Last administered on 11/27/18at 12:07; Admin Dose 2 UNIT; Start 11/21/18 at 21:00 Glucagon (Glucagen) 1 mg PRN PRN IM DECREASED GLUCOSE; Start 11/21/18 at 18:00 Glucose (Glutose) 15 gm PRN PRN PO DECREASED GLUCOSE; Start 11/21/18 at 18:00 Glucose (Glutose) 22.5 gm PRN PRN PO DECREASED GLUCOSE; Start 11/21/18 at 18:00 Aspirin (Aspirin) 81 mg DAILY PO Last administered on 11/27/18at 08:26; Admin Dose 81 MG; Start 11/22/18 at 09:00 Atorvastatin Calcium (Lipitor) 40 mg HS PO Last administered on 11/26/18at 20:15; Admin Dose 40 MG; Start 11/21/18 at 21:00 Clopidogrel Bisulfate (plaVIX) 75 mg DAILY PO Last administered on 11/27/18 08:26; Admin Dose 75 MG; Start 11/22/18 at 09:00 Hydralazine HCl (Apresoline) 5 mg Q6H PRN IV ELEVATED BLOOD PRESSURE; Start 11/21/18 at 18:00 Linagliptin (Tradjenta) 5 mg DAILY PO Last administered on 11/27/18at 07:42; Admin Dose 5 MG; Start 11/22/18 at 09:00 Metoprolol Succinate (Toprol Xl) 50 mg DAILY PO Last administered on 11/27/18 08:26; Admin Dose 50 MG; Start 11/22/18 at 09:00 Pantoprazole (Protonix Tab) 40 mg DAILY@06 PO Last administered on 11/27/18at 06:45; Admin Dose 40 MG; Start 11/22/18 at 06:00 Insulin Aspart (Novolog Insulin Pen) 6 unit WITH BREAKFAST SC Last administered on 11/27/18at 07:46; Admin Dose 6 UNIT; Start 11/24/18 at 07:35 Insulin Aspart (Novolog Insulin Pen) 6 unit WITH LUNCH SC Last administered on 11/27/18 12:07; Admin Dose 6 UNIT; Start 11/24/18 at 12:00 Insulin Aspart (Novolog Insulin Pen) 6 unit WITH DINNER SC Last administered on 11/26/18 17:18; Admin Dose 6 UNIT; Start 11/24/18 at 17:35 Insulin Glargine (Lantus) 22 units DAILY@2000 SC Last administered on 11/26/18 20:14; Admin Dose 22 UNITS; Start 11/23/18 at 20:00 Diagnostic Test (Pha) (Accu-Chek) 1 ea AC MEALS AND BEDTIME XX Last administered on 11/27/18 12:07; Admin Dose 1 EA; Start 11/23/18 at 21:00 Enoxaparin Sodium (Lovenox) 40 mg DAILY SC Last administered on 11/27/18 08:43; Admin Dose 40 MG; Start 11/25/18 at 09:00 Sodium Polystyrene Sulfonate (Kayexelate 15 Gm Kit (Powder+Sorbitol)) 30 gm ONCE PO ; Start 11/27/18 at 12:30; Stop 11/27/18 at 12:31 [id number] SU Nov 27, 2018 12:33
[2018-11-27 14:00] VITALS: BP 113/63; PULSE 85; RESP 20
--- NOTE | 2018-11-27 14:47 | PN ---
Date/Time of Note Date/Time of Note DATE: 11/27/18 TIME: 14:44 Assessment/Plan VTE Prophylaxis Risk score (from [facility] [place])>0 risk: 9 SCD applied (from [facility] [place]): No SCD contraindicated: low risk/ambulating Pharmacological prophylaxis: NA/contraindicated Pharm contraindication: low risk/ambulating Lines/Catheters IV [facility] Type (from [facility] [place] Urinary Cath still in place: No Assessment/Plan Hospital Course 1 right arm weakness MRI brain 11/20/18 1. Acute, ischemic, infarcts in the left posterior frontal paige radiography and left external capsule 2. DM type II uncontrolled 3. Obesity 4. Hypertension 5. SIRS, source ? 6. Hx of 3 vessel heart bypass. 2003 7. hx of herniorrhaphy left 8. Injury of the right big toe 9. Hx of cellulitis 10. Chronic kidney disease. UA is negative CR 1.3 now with VLADIMIR and hyperkalemia Assessment/Plan -Hold lisinopril -Low K diet give Kayexalate -Hold metformin -CW ASA 81 and plavix 75 and atorvastatin 40 -Aggressive PT/OT -cw Lantus to 22 and increase her mealtime insulin to 6 and add metformin -Echo neg and carotid ultrasound negative -cardiology consult dr Bonner -neurology consult Dr Matthews Result Diagram: 11/27/18 0608 11/27/18 0608 Results 24hrs Laboratory Tests Test 11/26/18 17:15 11/26/18 19:39 11/27/18 06:08 11/27/18 07:40 Bedside Glucose 165 125 142 White Blood Count 5.6 Red Blood Count 5.15 Hemoglobin 13.7 L Hematocrit 43.0 Mean Corpuscular 83.5 Volume Mean Corpuscular 26.6 L Hemoglobin Mean Corpuscular 31.9 L Hemoglobin Concent Red Cell 15.0 H Distribution Width Platelet Count 203 Mean Platelet Volume 10.7 H Immature 0.700 H Granulocytes % Neutrophils % 60.7 Lymphocytes % 25.7 Monocytes % 9.3 Eosinophils % 2.9 Basophils % 0.7 Nucleated Red Blood 0.0 Cells % Immature 0.040 H Granulocytes # Neutrophils # 3.4 Lymphocytes # 1.4 Monocytes # 0.5 Eosinophils # 0.2 Basophils # 0.0 Nucleated Red Blood 0.0 Cells # Sodium Level 142 Potassium Level 5.4 H Chloride Level 102 Carbon Dioxide Level 30 Anion Gap 10 Blood Urea Nitrogen 40 H Creatinine 1.49 H Est Glomerular 47 L Filtrat Rate mL/min Glucose Level 170 Calcium Level 9.5 Test 11/27/18 12:04 Bedside Glucose 182 Subjective 24 Hr Interval Summary Free Text/Dictation K 5.4 RUE weakness improving Exam/Review of Systems Exam Vitals Vital Signs Date Temp Pulse Resp B/P (MAP) Pulse Ox O2 O2 Flow FiO2 Time Delivery Rate 11/27/18 97.9 82 20 129/76 96 Room Air 07:30 (93) Intake and Output 11/26/18 11/26/18 11/27/18 1515:00 23:00 07:00 IntakeIntake Total 1000 ml 980 ml 120 ml BalanceBalance 1000 ml 980 ml 120 ml Exam No acute distress, no events overnight. Eyes: anicteric, EOM's intact, no pallor Nose: no rhinorrhea Neck: supple, no thyromegaly, no carotid bruits Lungs: clear bilaterally. Normal air movement CVS: regular rate and rhythm, no murmurs Abdomen: soft, bowel sounds present, no hepatosplenomegally, no masses, no rebound or guarding. neuro right UE weakness Results Results 24hrs Laboratory Tests Test 11/26/18 17:15 11/26/18 19:39 11/27/18 06:08 11/27/18 07:40 Bedside Glucose 165 125 142 White Blood Count 5.6 Red Blood Count 5.15 Hemoglobin 13.7 L Hematocrit 43.0 Mean Corpuscular 83.5 Volume Mean Corpuscular 26.6 L Hemoglobin Mean Corpuscular 31.9 L Hemoglobin Concent Red Cell 15.0 H Distribution Width Platelet Count 203 Mean Platelet Volume 10.7 H Immature 0.700 H Granulocytes % Neutrophils % 60.7 Lymphocytes % 25.7 Monocytes % 9.3 Eosinophils % 2.9 Basophils % 0.7 Nucleated Red Blood 0.0 Cells % Immature 0.040 H Granulocytes # Neutrophils # 3.4 Lymphocytes # 1.4 Monocytes # 0.5 Eosinophils # 0.2 Basophils # 0.0 Nucleated Red Blood 0.0 Cells # Sodium Level 142 Potassium Level 5.4 H Chloride Level 102 Carbon Dioxide Level 30 Anion Gap 10 Blood Urea Nitrogen 40 H Creatinine 1.49 H Est Glomerular 47 L Filtrat Rate mL/min Glucose Level 170 Calcium Level 9.5 Test 11/27/18 12:04 Bedside Glucose 182 Medications Medication Current Medications Docusate Sodium (Colace) 100 mg BID PO Last administered on 11/27/18 08:25; Admin Dose 100 MG; Start 11/21/18 at 21:00 Senna (Senokot) 1 tab HS PO Last administered on 11/26/18 20:15; Admin Dose 1 TAB; Start 11/21/18 at 21:00 Magnesium Hydroxide (Milk Of Mag) 30 ml BID PRN PO CONSTIPATION Last administered on 11/23/18at 00:38; Admin Dose 30 ML; Start 11/21/18 at 17:30 Lactulose (Enulose) 20 gm DAILY PRN PO CONSTIPATION Last administered on 11/24/18 04:13; Admin Dose 20 GM; Start 11/21/18 at 17:30 Bisacodyl (Dulcolax Supp) 10 mg DAILY PRN [place] CONSTIPATION; Start 11/21/18 at 17:30 Acetaminophen (Tylenol Tab) 650 mg Q4H PRN PO PAIN Last administered on 11/21/18 22:19; Admin Dose 650 MG; Start 11/21/18 at 17:30 Miscellaneous Information (Pending [facility] Order For Wound Care) This patient bates... PRN PRN XX WOUND CARE; Start 11/21/18 at 17:30 Diagnostic Test (Pha) (Accu-Chek) 1 ea 02 XX Last administered on 11/26/18at 02:04; Admin Dose 1 EA; Start 11/22/18 at 02:00 Insulin Aspart (Novolog Insulin Pen) NOVOLOG *MILD* ALGORITHM WITH MEALS BEDTIME SC Last administered on 11/27/18at 12:07; Admin Dose 2 UNIT; Start 11/21/18 at 21:00 Glucagon (Glucagen) 1 mg PRN PRN IM DECREASED GLUCOSE; Start 11/21/18 at 18:00 Glucose (Glutose) 15 gm PRN PRN PO DECREASED GLUCOSE; Start 11/21/18 at 18:00 Glucose (Glutose) 22.5 gm PRN PRN PO DECREASED GLUCOSE; Start 11/21/18 at 18:00 Aspirin (Aspirin) 81 mg DAILY PO Last administered on 11/27/18 08:26; Admin Dose 81 MG; Start 11/22/18 at 09:00 Atorvastatin Calcium (Lipitor) 40 mg HS PO Last administered on 11/26/18 20:15; Admin Dose 40 MG; Start 11/21/18 at 21:00 Clopidogrel Bisulfate (plaVIX) 75 mg DAILY PO Last administered on 11/27/18 08:26; Admin Dose 75 MG; Start 11/22/18 at 09:00 Hydralazine HCl (Apresoline) 5 mg Q6H PRN IV ELEVATED BLOOD PRESSURE; Start 11/21/18 at 18:00 Linagliptin (Tradjenta) 5 mg DAILY PO Last administered on 11/27/18 07:42; Admin Dose 5 MG; Start 11/22/18 at 09:00 Metoprolol Succinate (Toprol Xl) 50 mg DAILY PO Last administered on 11/27/18 08:26; Admin Dose 50 MG; Start 11/22/18 at 09:00 Pantoprazole (Protonix Tab) 40 mg DAILY@06 PO Last administered on 11/27/18 06:45; Admin Dose 40 MG; Start 11/22/18 at 06:00 Insulin Aspart (Novolog Insulin Pen) 6 unit WITH BREAKFAST SC Last administered on 11/27/18 07:46; Admin Dose 6 UNIT; Start 11/24/18 at 07:35 Insulin Aspart (Novolog Insulin Pen) 6 unit WITH LUNCH SC Last administered on 11/27/18 12:07; Admin Dose 6 UNIT; Start 11/24/18 at 12:00 Insulin Aspart (Novolog Insulin Pen) 6 unit WITH DINNER SC Last administered on 11/26/18 17:18; Admin Dose 6 UNIT; Start 11/24/18 at 17:35 Insulin Glargine (Lantus) 22 units DAILY@2000 SC Last administered on 11/26/18 20:14; Admin Dose 22 UNITS; Start 11/23/18 at 20:00 Diagnostic Test (Pha) (Accu-Chek) 1 ea AC MEALS AND BEDTIME XX Last administered on 11/27/18 12:07; Admin Dose 1 EA; Start 11/23/18 at 21:00 Enoxaparin Sodium (Lovenox) 40 mg DAILY SC Last administered on 11/27/18 08:43; Admin Dose 40 MG; Start 11/25/18 at 09:00 JAMES WILLIS MD Nov 27, 2018 14:47
--- NOTE | 2018-11-27 17:20 | PN ---
Date/Time of Note Date/Time of Note DATE: 11/27/18 TIME: 17:17 Subjective Comfortable Objective Vital Signs Date Temp Pulse Resp B/P (MAP) Pulse Ox O2 O2 Flow FiO2 Time Delivery Rate 11/27/18 97.6 85 20 113/63 97 Room Air 14:00 (80) Intake and Output 11/26/18 11/26/18 11/27/18 1515:00 23:00 07:00 IntakeIntake Total 1000 ml 980 ml 120 ml BalanceBalance 1000 ml 980 ml 120 ml Exam pulm-cta cga ambulation Results/Medications Result Diagram: 11/27/18 0608 11/27/18 0608 Results 24 hrs Laboratory Tests Test 11/26/18 19:39 11/27/18 06:08 11/27/18 07:40 11/27/18 12:04 Bedside Glucose 125 142 182 White Blood Count 5.6 Red Blood Count 5.15 Hemoglobin 13.7 L Hematocrit 43.0 Mean Corpuscular 83.5 Volume Mean Corpuscular 26.6 L Hemoglobin Mean Corpuscular 31.9 L Hemoglobin Concent Red Cell 15.0 H Distribution Width Platelet Count 203 Mean Platelet Volume 10.7 H Immature 0.700 H Granulocytes % Neutrophils % 60.7 Lymphocytes % 25.7 Monocytes % 9.3 Eosinophils % 2.9 Basophils % 0.7 Nucleated Red Blood 0.0 Cells % Immature 0.040 H Granulocytes # Neutrophils # 3.4 Lymphocytes # 1.4 Monocytes # 0.5 Eosinophils # 0.2 Basophils # 0.0 Nucleated Red Blood 0.0 Cells # Sodium Level 142 Potassium Level 5.4 H Chloride Level 102 Carbon Dioxide Level 30 Anion Gap 10 Blood Urea Nitrogen 40 H Creatinine 1.49 H Est Glomerular 47 L Filtrat Rate mL/min Glucose Level 170 Calcium Level 9.5 Medications Current Medications Docusate Sodium (Colace) 100 mg BID PO Last administered on 11/27/18at 08:25; Admin Dose 100 MG; Start 11/21/18 at 21:00 Senna (Senokot) 1 tab HS PO Last administered on 11/26/18at 20:15; Admin Dose 1 TAB; Start 11/21/18 at 21:00 Magnesium Hydroxide (Milk Of Mag) 30 ml BID PRN PO CONSTIPATION Last administered on 11/23/18at 00:38; Admin Dose 30 ML; Start 11/21/18 at 17:30 Lactulose (Enulose) 20 gm DAILY PRN PO CONSTIPATION Last administered on 11/24/18at 04:13; Admin Dose 20 GM; Start 11/21/18 at 17:30 Bisacodyl (Dulcolax Supp) [address] CONSTIPATION; Start 11/21/18 at 17:30 Acetaminophen (Tylenol Tab) 650 mg Q4H PRN PO PAIN Last administered on 11/21/18at 22:19; Admin Dose 650 MG; Start 11/21/18 at 17:30 [facility] This patient bates... PRN PRN XX WOUND CARE; Start 11/21/18 at 17:30 Diagnostic Test (Pha) (Accu-Chek) 1 ea 02 XX Last administered on 11/26/18at 02:04; Admin Dose 1 EA; Start 11/22/18 at 02:00 Insulin Aspart (Novolog Insulin Pen) NOVOLOG *MILD* ALGORITHM WITH MEALS BEDTIME SC Last administered on 11/27/18at 12:07; Admin Dose 2 UNIT; Start 11/21/18 at 21:00 Glucagon (Glucagen) 1 mg PRN PRN IM DECREASED GLUCOSE; Start 11/21/18 at 18:00 Glucose (Glutose) 15 gm PRN PRN PO DECREASED GLUCOSE; Start 11/21/18 at 18:00 Glucose (Glutose) 22.5 gm PRN PRN PO DECREASED GLUCOSE; Start 11/21/18 at 18:00 Aspirin (Aspirin) 81 mg DAILY PO Last administered on 11/27/18at 08:26; Admin Dose 81 MG; Start 11/22/18 at 09:00 Atorvastatin Calcium (Lipitor) 40 mg HS PO Last administered on 11/26/18at 20:15; Admin Dose 40 MG; Start 11/21/18 at 21:00 Clopidogrel Bisulfate (plaVIX) 75 mg DAILY PO Last administered on 11/27/18at 08:26; Admin Dose 75 MG; Start 11/22/18 at 09:00 Hydralazine HCl (Apresoline) 5 mg Q6H PRN IV ELEVATED BLOOD PRESSURE; Start 11/21/18 at 18:00 Linagliptin (Tradjenta) 5 mg DAILY PO Last administered on 11/27/18at 07:42; Admin Dose 5 MG; Start 11/22/18 at 09:00 Metoprolol Succinate (Toprol Xl) 50 mg DAILY PO Last administered on 11/27/18 08:26; Admin Dose 50 MG; Start 11/22/18 at 09:00 Pantoprazole (Protonix Tab) 40 mg DAILY@06 PO Last administered on 11/27/18 06:45; Admin Dose 40 MG; Start 11/22/18 at 06:00 Insulin Aspart (Novolog Insulin Pen) 6 unit WITH BREAKFAST SC Last administered on 11/27/18 07:46; Admin Dose 6 UNIT; Start 11/24/18 at 07:35 Insulin Aspart (Novolog Insulin Pen) 6 unit WITH LUNCH SC Last administered on 11/27/18 12:07; Admin Dose 6 UNIT; Start 11/24/18 at 12:00 Insulin Aspart (Novolog Insulin Pen) 6 unit WITH DINNER SC Last administered on 11/26/18 17:18; Admin Dose 6 UNIT; Start 11/24/18 at 17:35 Insulin Glargine (Lantus) 22 units DAILY@2000 SC Last administered on 11/26/18 20:14; Admin Dose 22 UNITS; Start 11/23/18 at 20:00 Diagnostic Test (Pha) (Accu-Chek) 1 ea AC MEALS AND BEDTIME XX Last administered on 11/27/18 12:07; Admin Dose 1 EA; Start 11/23/18 at 21:00 Enoxaparin Sodium (Lovenox) 40 mg DAILY SC Last administered on 11/27/18 08:43; Admin Dose 40 MG; Start 11/25/18 at 09:00 Assessment/Plan Additional Assessment/Plan rehab- Left frontal paige radiata infarct cerebrovascular accident with right- sided weakness. Continue current treatment plan, good steady gains Hypertension. Coronary artery disease. CABG. Hyperlipidemia. Diabetes mellitus type 2. Acute on chronic kidney disease. NEHA BROOKS MD Nov 27, 2018 17:20
[2018-11-27 20:11] VITALS: BP 118/73; PULSE 86; RESP 18
[2018-11-27] MEDS: SENNA TAB PO SCH (21:13)
[2018-11-27] MEDS: ATORVASTATIN 40 MG TAB PO SCH (21:13)
[2018-11-27] MEDS: INSULIN GLARGINE [LANTus] (100 UNITS/ML) SYG SC SCH (21:15)
[2018-11-28] MEDS: ACCU-CHEK XX SCH ×5 (02:00→21:02)
[2018-11-28 02:21] VITALS: BP 128/77; PULSE 84; RESP 18
[2018-11-28] MEDS: PANTOPRAZOLE (EC) 40 MG TAB PO SCH (06:28)
[2018-11-28 07:00] VITALS: BP 132/78; PULSE 72; RESP 18
[2018-11-28] MEDS: INSULIN ASPART [NOVOLOG] 3 ML PEN SC SCH ×7 (07:35→20:30)
[2018-11-28] MEDS: LINAGLIPTIN 5 MG TABLET PO SCH (07:56)
[2018-11-28] MEDS ORDERED: SOD CHLORIDE 0.9% 1,000 ML IV SCH (10:00)
--- NOTE | 2018-11-28 10:14 | CONS ---
Consult Date/Type/Reason Admit Date/Time Nov 21, 2018 at 16:58 Initial Consult Date Requesting Provider: JAMES WILLIS MD Date/Time of Note DATE: 11/28/18 TIME: 10:12 Subjective No acute events - pt comfortable - pain controlled - con't rehab. ROS: No fever, no chills, no nausea, no vomiting, no diarrhea/constipation No recent weight changes No chest pain, no PND, no orthopnea No dizziness, blurred vision No thirst, no heat or cold intolerance Objective Vitals Vital Signs Date Temp Pulse Resp B/P (MAP) Pulse Ox O2 O2 Flow FiO2 Time Delivery Rate 11/28/18 98.0 84 18 128/77 98 Room Air 02:21 (94) Intake and Output 11/27/18 11/27/18 11/28/18 1515:00 23:00 07:00 IntakeIntake Total 1090 ml 50 ml OutputOutput Total 1 ml BalanceBalance 1090 ml 49 ml Exam General: WN/WD/NAD, AOx 3 HEENT: Unicetric/atraumatic/EOMI (follows commands) NECK: JVD elevated, no thyromegaly Lymph: no lymphadenopathy HEART: regular with no S3, II/ systolic murmur at apex, PMI L LUNGS: Coarse sounds ABD: soft, NT, ND, +BS : Intact Neuro: non focal SKIN: chronic changes EXT: trace edema Results/Medications Result Diagram: 11/27/18 0608 11/28/18 0557 Results 24 hrs Laboratory Tests Test 11/27/18 12:04 11/27/18 17:24 11/27/18 21:12 11/28/18 05:57 Bedside Glucose 182 113 134 Sodium Level 142 Potassium Level 4.3 Chloride Level 102 Carbon Dioxide Level 31 Anion Gap 9 Blood Urea Nitrogen 40 H Creatinine 1.51 H Est Glomerular 47 L Filtrat Rate mL/min Glucose Level 145 Calcium Level 9.5 Test 11/28/18 07:49 Bedside Glucose 126 Home Meds Active Scripts Clindamycin Hcl* (Clindamycin Hcl*) 300 Mg Capsule, 300 MG PO Q6 for 14 Days, CAP Prov:DENY VELASQUEZ MD 11/18/16 Metformin Hcl (Glucophage) 500 Mg Tablet, 1000 MG PO BID WITH MEALS for 28 Days, TAB Prov:DENY VELASQUEZ MD 11/18/16 Linagliptin (TRADJENTA) 5 Mg Tablet, 5 MG PO DAILY for 28 Days, TAB Prov:DENY VELASQUEZ MD 11/18/16 Insulin Glargine* (Lantus*) 100 Unit/Ml Soln, 25 UNIT SC DAILY@20 for 28 Days Prov:DENY VELASQUEZ MD 11/18/16 Insulin Aspart* (Novolog Insulin Pen*) 100 Unit/Ml Soln, 10 UNIT SC WITH MEALS for 28 Days Prov:DENY VELASQUEZ MD 11/18/16 Pantoprazole* (Pantoprazole*) 40 Mg Tablet.dr, 40 MG PO DAILY@06 for 14 Days Prov:DENY VELASQUEZ MD 11/18/16 L Acidophil/B Lactis/B Longum (FLORAJEN3 CAPSULE) 460 Mg Capsule, 1 EACH PO BID for 28 Days, CAP Prov:DENY VELASQUEZ MD 11/18/16 Metoprolol Succinate* (Toprol XL*) 100 Mg Tab.sr.24h, 100 MG PO DAILY for 28 Days Prov:DENY VELASQUEZ MD 11/18/16 Reported Medications Metformin Hcl* (Metformin Hcl*) 500 Mg Tablet, 500 MG PO WITH BREAKFAST, #30 TAB 10/22/15 Aspirin* (Aspirin* EC) 81 Mg Tablet.dr, 81 MG PO DAILY, TAB 10/22/15 Lisinopril* (Lisinopril*) 20 Mg Tablet, 20 MG PO DAILY, #30 TAB 10/22/15 Medications Current Medications Docusate Sodium (Colace) 100 mg BID PO Last administered on 11/27/18at 21:13; Admin Dose 100 MG; Start 11/21/18 at 21:00 Senna (Senokot) 1 tab HS PO Last administered on 11/27/18at 21:13; Admin Dose 1 TAB; Start 11/21/18 at 21:00 Magnesium Hydroxide (Milk Of Mag) 30 ml BID PRN PO CONSTIPATION Last administered on 11/23/18at 00:38; Admin Dose 30 ML; Start 11/21/18 at 17:30 Lactulose (Enulose) 20 gm DAILY PRN PO CONSTIPATION Last administered on 11/24/18at 04:13; Admin Dose 20 GM; Start 11/21/18 at 17:30 Bisacodyl (Dulcolax Supp) 10 mg DAILY PRN [place] CONSTIPATION; Start 11/21/18 at 17:30 Acetaminophen (Tylenol Tab) 650 mg Q4H PRN PO PAIN Last administered on 22:19; Admin Dose 650 MG; Start 11/21/18 at 17:30 Miscellaneous Information (Pending [facility] Order For Wound Care) This patient bates... PRN PRN XX WOUND CARE; Start 11/21/18 at 17:30 Diagnostic Test (Pha) (Accu-Chek) 1 ea 02 XX Last administered on 11/26/18at 02:04; Admin Dose 1 EA; Start 11/22/18 at 02:00 Insulin Aspart (Novolog Insulin Pen) NOVOLOG *MILD* ALGORITHM WITH MEALS BEDTIME SC Last administered on 11/27/18 12:07; Admin Dose 2 UNIT; Start 11/21/18 at 21:00 Glucagon (Glucagen) 1 mg PRN PRN IM DECREASED GLUCOSE; Start 11/21/18 at 18:00 Glucose (Glutose) 15 gm PRN PRN PO DECREASED GLUCOSE; Start 11/21/18 at 18:00 Glucose (Glutose) 22.5 gm PRN PRN PO DECREASED GLUCOSE; Start 11/21/18 at 18:00 Aspirin (Aspirin) 81 mg DAILY PO Last administered on 11/27/18 08:26; Admin Dose 81 MG; Start 11/22/18 at 09:00 Atorvastatin Calcium (Lipitor) 40 mg HS PO Last administered on 11/27/18at 21:13; Admin Dose 40 MG; Start 11/21/18 at 21:00 Clopidogrel Bisulfate (plaVIX) 75 mg DAILY PO Last administered on 11/27/18 08:26; Admin Dose 75 MG; Start 11/22/18 at 09:00 Hydralazine HCl (Apresoline) 5 mg Q6H PRN IV ELEVATED BLOOD PRESSURE; Start 11/21/18 at 18:00 Linagliptin (Tradjenta) 5 mg DAILY PO Last administered on 11/28/18 07:56; Admin Dose 5 MG; Start 11/22/18 at 09:00 Metoprolol Succinate (Toprol Xl) 50 mg DAILY PO Last administered on 11/27/18 08:26; Admin Dose 50 MG; Start 11/22/18 at 09:00 Pantoprazole (Protonix Tab) 40 mg DAILY@06 PO Last administered on 7/23/19at 06:28; Admin Dose 40 MG; Start 11/22/18 at 06:00 Insulin Aspart (Novolog Insulin Pen) 6 unit WITH BREAKFAST SC Last administered on 11/28/18at 07:54; Admin Dose 6 UNIT; Start 11/24/18 at 07:35 Insulin Aspart (Novolog Insulin Pen) 6 unit WITH LUNCH SC Last administered on 11/27/18at 12:07; Admin Dose 6 UNIT; Start 11/24/18 at 12:00 Insulin Aspart (Novolog Insulin Pen) 6 unit WITH DINNER SC Last administered on 11/27/18at 17:27; Admin Dose 6 UNIT; Start 11/24/18 at 17:35 Insulin Glargine (Lantus) 22 units DAILY@2000 SC Last administered on 11/27/18 21:15; Admin Dose 22 UNITS; Start 11/23/18 at 20:00 Diagnostic Test (Pha) (Accu-Chek) 1 ea AC MEALS AND BEDTIME XX Last administered on 11/27/18at 21:15; Admin Dose 1 EA; Start 11/23/18 at 21:00 Enoxaparin Sodium (Lovenox) 40 mg DAILY SC Last administered on 11/27/18 08:43; Admin Dose 40 MG; Start 11/25/18 at 09:00 Sodium Chloride 1,000 ml @ 50 mls/hr Q20H IV ; Start 11/28/18 at 10:00; Stop 11/29/18 at 05:59 Assessment/Plan Hospital Course (Demo Recall) 1. Hypertension-reasonable control - con't to monitor now. Better now < 130 SBP. Will allow for now. 2. History of coronary artery disease, status post coronary artery bypass grafting with a known occlusion of one graft by catheterization 2015. Negative troponin x3 here. No chest pain.-Echo EF 50%, no sig valve abnl - no intervention planned. Treated. No CP. 3. Dyslipidemia- treated. 4. Right arm weakness. Rule out acute cerebrovascular accident. Negative head CT at outside hospital. Now s/p MRI revealing acute CVA. No sig arrythmias noted on tele - defer to rehab team. Con't rehab. 5. Diabetes mellitus- on meds - keep euglycemic. 6. Renal failure from outside hospital - CR 1.68 - avoid nephrotoxic meds. Cr 1.4 up to 1.51 - good urine output now.- Renal team follows. TOSHIA LUND MD Nov 28, 2018 10:14
[2018-11-28] MEDS: CLOPIDOGREL 75 MG TAB PO SCH (12:22)
[2018-11-28] MEDS: METOPROLOL (XL) 50 MG TAB PO SCH (12:23)
[2018-11-28] MEDS: DOCUSATE SODIUM 100 MG CAP PO SCH ×2 (12:23→20:27)
[2018-11-28] MEDS: ASPIRIN 81 MG TAB PO SCH (12:23)
[2018-11-28] MEDS: ENOXAPARIN 40 MG/0.4 ML SYG SC SCH (12:24)
[2018-11-28] MEDS: BALSAM PERU/CASTOR OIL 60 GM TUBE TOP SCH (12:25)
[2018-11-28 14:00] VITALS: BP 136/75; PULSE 80; RESP 18
--- NOTE | 2018-11-28 14:54 | PN ---
Date/Time of Note Date/Time of Note DATE: 11/28/18 TIME: 14:45 Assessment/Plan VTE Prophylaxis Risk score (from [facility] [place] risk: 4 SCD applied (from [facility] [place] No SCD contraindicated: low risk/ambulating Pharmacological prophylaxis: NA/contraindicated Pharm contraindication: low risk/ambulating Lines/Catheters [facility] Saline Lock Urinary Cath still in place: No Assessment/Plan Hospital Course 1 right arm weakness MRI brain 11/20/18 1. Acute, ischemic, infarcts in the left posterior frontal paige radiography and left external capsule 2. DM type II uncontrolled 3. Obesity 4. Hypertension 5. SIRS, source ? 6. Hx of 3 vessel heart bypass. 2003 7. hx of herniorrhaphy left 8. Injury of the right big toe 9. Hx of cellulitis 10. Chronic kidney disease. UA is negative CR 1.3 now with VLADIMIR and hyperkalemia Assessment/Plan -Hold lisinopril -Low K diet give Kayexalate -Hold metformin - NS at 50 cc/hr> gentle iv fluids -CW ASA 81 and plavix 75 and atorvastatin 40 -Aggressive PT/OT -cw Lantus to 22 and increase her mealtime insulin to 6 and add metformin -Echo neg and carotid ultrasound negative -cardiology consult dr Bonner -neurology consult Dr Matthews Result Diagram: 11/27/18 0608 11/28/18 0557 Results 24hrs Laboratory Tests Test 11/27/18 17:24 11/27/18 21:12 11/28/18 05:57 11/28/18 07:49 Bedside Glucose 113 134 126 Sodium Level 142 Potassium Level 4.3 Chloride Level 102 Carbon Dioxide Level 31 Anion Gap 9 Blood Urea Nitrogen 40 H Creatinine 1.51 H Est Glomerular 47 L Filtrat Rate mL/min Glucose Level 145 Calcium Level 9.5 Test 11/28/18 12:17 Bedside Glucose 187 Subjective 24 Hr Interval Summary Free Text/Dictation Improving with physical therapy. Exam/Review of Systems Exam Vitals Vital Signs Date Temp Pulse Resp B/P (MAP) Pulse Ox O2 O2 Flow FiO2 Time Delivery Rate 11/28/18 98.2 72 18 132/78 96 Room Air 07:00 (96) Intake and Output 11/27/18 11/27/18 11/28/18 1515:00 23:00 07:00 IntakeIntake Total 1090 ml 50 ml OutputOutput Total 1 ml BalanceBalance 1090 ml 49 ml Exam No acute distress, no events overnight. Eyes: anicteric, EOM's intact, no pallor Nose: no rhinorrhea Neck: supple, no thyromegaly, no carotid bruits Lungs: clear bilaterally. Normal air movement CVS: regular rate and rhythm, no murmurs Abdomen: soft, bowel sounds present, no hepatosplenomegally, no masses, no rebound or guarding. neuro right UE weakness 3/5 Results Results 24hrs Laboratory Tests Test 11/27/18 17:24 11/27/18 21:12 11/28/18 05:57 11/28/18 07:49 Bedside Glucose 113 134 126 Sodium Level 142 Potassium Level 4.3 Chloride Level 102 Carbon Dioxide Level 31 Anion Gap 9 Blood Urea Nitrogen 40 H Creatinine 1.51 H Est Glomerular 47 L Filtrat Rate mL/min Glucose Level 145 Calcium Level 9.5 Test 11/28/18 12:17 Bedside Glucose 187 Medications Medication Current Medications Docusate Sodium (Colace) 100 mg BID PO Last administered on 11/28/18at 12:23; Admin Dose 100 MG; Start 11/21/18 at 21:00 Senna (Senokot) 1 tab HS PO Last administered on 11/27/18at 21:13; Admin Dose 1 TAB; Start 11/21/18 at 21:00 Magnesium Hydroxide (Milk Of Mag) 30 ml BID PRN PO CONSTIPATION Last adm inistered on 11/23/18at 00:38; Admin Dose 30 ML; Start 11/21/18 at 17:30 Lactulose (Enulose) 20 gm DAILY PRN PO CONSTIPATION Last administered on 11/24/18at 04:13; Admin Dose 20 GM; Start 11/21/18 at 17:30 Bisacodyl (Dulcolax Supp) 10 mg DAILY PRN [place] CONSTIPATION; Start 11/21/18 at 17:30 Acetaminophen (Tylenol Tab) 650 mg Q4H PRN PO PAIN Last administered on 11/21/18at 22:19; Admin Dose 650 MG; Start 11/21/18 at 17:30 [facility]isc[facility] This patient h a... PRN PRN XX WOUND CARE; Start 11/21/18 at 17:30 Diagnostic Test (Pha) (Accu-Chek) 1 ea 02 XX Last administered on 11/26/18 02:04; Admin Dose 1 EA; Start 11/22/18 at 02:00 Insulin Aspart (Novolog Insulin Pen) NOVOLOG *MILD* ALGORITHM WITH MEALS BEDTIME SC Last administered on 11/28/18 12:28; Admin Dose 2 UNIT; Start 11/21/18 at 21:00 Glucagon (Glucagen) 1 mg PRN PRN IM DECREASED GLUCOSE; Start 11/21/18 at 18:00 Glucose (Glutose) 15 gm PRN PRN PO DECREASED GLUCOSE; Start 11/21/18 at 18:00 Glucose (Glutose) 22.5 gm PRN PRN PO DECREASED GLUCOSE; Start 11/21/18 at 18:00 Aspirin (Aspirin) 81 mg DAILY PO Last administered on 11/28/18 12:23; Admin Dose 81 MG; Start 11/22/18 at 09:00 Atorvastatin Calcium (Lipitor) 40 mg HS PO Last administered on 11/27/18 21:13; Admin Dose 40 MG; Start 11/21/18 at 21:00 Clopidogrel Bisulfate (plaVIX) 75 mg DAILY PO Last administered on 11/28/18 12:22; Admin Dose 75 MG; Start 11/22/18 at 09:00 Hydralazine HCl (Apresoline) 5 mg Q6H PRN IV ELEVATED BLOOD PRESSURE; Start 11/21/18 at 18:00 Linagliptin (Tradjenta) 5 mg DAILY PO Last administered on 11/28/18 07:56; Admin Dose 5 MG; Start 11/22/18 at 09:00 Metoprolol Succinate (Toprol Xl) 50 mg DAILY PO Last administered on 11/28/18 12:23; Admin Dose 50 MG; Start 11/22/18 at 09:00 Pantoprazole (Protonix Tab) 40 mg DAILY@06 PO Last administered on 11/28/18 06:28; Admin Dose 40 MG; Start 11/22/18 at 06:00 Insulin Aspart (Novolog Insulin Pen) 6 unit WITH BREAKFAST SC Last administered on 11/28/18 07:54; Admin Dose 6 UNIT; Start 11/24/18 at 07:35 Insulin Aspart (Novolog Insulin Pen) 6 unit WITH LUNCH SC Last administered on 11/28/18 12:29; Admin Dose 6 UNIT; Start 11/24/18 at 12:00 Insulin Aspart (Novolog Insulin Pen) 6 unit WITH DINNER SC Last administered on 11/27/18 17:27; Admin Dose 6 UNIT; Start 11/24/18 at 17:35 Insulin Glargine (Lantus) 22 units DAILY@2000 SC Last administered on 11/27/18 21:15; Admin Dose 22 UNITS; Start 11/23/18 at 20:00 Diagnostic Test (Pha) (Accu-Chek) 1 ea AC MEALS AND BEDTIME XX Last administered on 11/27/18at 21:15; Admin Dose 1 EA; Start 11/23/18 at 21:00 Enoxaparin Sodium (Lovenox) 40 mg DAILY SC Last administered on 11/28/18at 1 2:24; Admin Dose 40 MG; Start 11/25/18 at 09:00 Sodium Chloride 1,000 ml @ 50 mls/hr Q20H IV Last administered on 11/28/18 12:47; Admin Dose 50 MLS/HR; Start 11/28/18 at 10:00; Stop 11/29/18 at 05:59 JAMES WILLIS MD Nov 28, 2018 14:54
--- NOTE | 2018-11-28 15:16 | PN ---
Date/Time of Note Date/Time of Note DATE: 11/28/18 TIME: 15:13 Subjective Patient doing well with therapy Objective Vital Signs Date Temp Pulse Resp B/P (MAP) Pulse Ox O2 O2 Flow FiO2 Time Delivery Rate 11/28/18 98.2 72 18 132/78 96 Room Air 07:00 (96) Intake and Output 11/27/18 11/27/18 11/28/18 1515:00 23:00 07:00 IntakeIntake Total 1090 ml 50 ml OutputOutput Total 1 ml BalanceBalance 1090 ml 49 ml Exam pulm-cta abd-soft sba 220 feet Results/Medications Result Diagram: 11/27/18 0608 11/28/18 0557 Results 24 hrs Laboratory Tests Test 11/27/18 17:24 11/27/18 21:12 11/28/18 05:57 11/28/18 07:49 Bedside Glucose 113 134 126 Sodium Level 142 Potassium Level 4.3 Chloride Level 102 Carbon Dioxide Level 31 Anion Gap 9 Blood Urea Nitrogen 40 H Creatinine 1.51 H Est Glomerular 47 L Filtrat Rate mL/min Glucose Level 145 Calcium Level 9.5 Test 11/28/18 12:17 Bedside Glucose 187 Medications Current Medications Docusate Sodium (Colace) 100 mg BID PO Last administered on 11/28/18at 12:23; Admin Dose 100 MG; Start 11/21/18 at 21:00 Senna (Senokot) 1 tab HS PO Last administered on 11/27/18at 21:13; Admin Dose 1 TAB; Start 11/21/18 at 21:00 Magnesium Hydroxide (Milk Of Mag) 30 ml BID PRN PO CONSTIPATION Last administered on 11/23/18at 00:38; Admin Dose 30 ML; Start 11/21/18 at 17:30 Lactulose (Enulose) 20 gm DAILY PRN PO CONSTIPATION Last administered on 11/24/18at 04:13; Admin Dose 20 GM; Start 11/21/18 at 17:30 Bisacodyl (Dulcolax Supp) 10 mg DAILY PRN [place] CONSTIPATION; Start 11/21/18 at 17:30 Acetaminophen (Tylenol Tab) 650 mg Q4H PRN PO PAIN Last administered on 11/21/18at 22:19; Admin Dose 650 MG; Start 11/21/18 at 17:30 Miscellaneous Information (Pending [facility] Order For Wound Care) This patient bates... PRN PRN XX WOUND CARE; Start 11/21/18 at 17:30 Diagnostic Test (Pha) (Accu-Chek) 1 ea 02 XX Last administered on 11/26/18at 0 2:04; Admin Dose 1 EA; Start 11/22/18 at 02:00 Insulin Aspart (Novolog Insulin Pen) NOVOLOG *MILD* ALGORITHM WITH MEALS BEDTIME SC Last administered on 11/28/18 12:28; Admin Dose 2 UNIT; Start 11/06 10/25 at 21:00 Glucagon (Glucagen) 1 mg PRN PRN IM DECREASED GLUCOSE; Start 11/21/18 at 18:00 Glucose (Glutose) 15 gm PRN PRN PO DECREASED GLUCOSE; Start 11/21/18 at 18:00 Glucose (Glutose) 22.5 gm PRN PRN PO DECREASED GLUCOSE; Start 11/21/18 at 18:00 Aspirin (Aspirin) 81 mg DAILY PO Last administered on 11/28/18 12:23; Admin Dose 81 MG; Start 11/22/18 at 09:00 Atorvastatin Calcium (Lipitor) 40 mg HS PO Last administered on 11/27/18 21:13; Admin Dose 40 MG; Start 11/21/18 at 21:00 Clopidogrel Bisulfate (plaVIX) 75 mg DAILY PO Last administered on 11/28/18 12:22; Admin Dose 75 MG; Start 11/22/18 at 09:00 Hydralazine HCl (Apresoline) 5 mg Q6H PRN IV ELEVATED BLOOD PRESSURE; Start 11/21/18 at 18:00 Linagliptin (Tradjenta) 5 mg DAILY PO Last administered on 11/28/18 07:56; Admin Dose 5 MG; Start 11/22/18 at 09:00 Metoprolol Succinate (Toprol Xl) 50 mg DAILY PO Last administered on 11/28/18 12:23; Admin Dose 50 MG; Start 11/22/18 at 09:00 Pantoprazole (Protonix Tab) 40 mg DAILY@06 PO Last administered on 11/28/18 06:28; Admin Dose 40 MG; Start 11/22/18 at 06:00 Insulin Aspart (Novolog Insulin Pen) 6 unit WITH BREAKFAST SC Last administered on 11/28/18 07:54; Admin Dose 6 UNIT; Start 11/24/18 at 07:35 Insulin Aspart (Novolog Insulin Pen) 6 unit WITH LUNCH SC Last administered on 11/28/18 12:29; Admin Dose 6 UNIT; Start 11/24/18 at 12:00 Insulin Aspart (Novolog Insulin Pen) 6 unit WITH DINNER SC Last administered on 11/27/18 17:27; Admin Dose 6 UNIT; Start 11/24/18 at 17:35 Insulin Glargine (Lantus) 22 units DAILY@2000 SC Last administered on 11/27/18 21:15; Admin Dose 22 UNITS; Start 11/23/18 at 20:00 Diagnostic Test (Pha) (Accu-Chek) 1 ea AC MEALS AND BEDTIME XX Last administered on 11/27/18 21:15; Admin Dose 1 EA; Start 11/23/18 at 21:00 Sodium Chloride 1,000 ml @ 50 mls/hr Q20H IV Last administered on 11/28/18 12:47; Admin Dose 50 MLS/HR; Start 11/28/18 at 10:00; Stop 11/29/18 at 05:59 Enoxaparin Sodium (Lovenox) 30 mg DAILY SC ; Start 11/29/18 at 09:00 Assessment/Plan Additional Assessment/Plan rehab- Left frontal paige radiata infarct cerebrovascular accident with right- sided weakness. Great progress, anticipate home this week on Tuesday Hypertension. Coronary artery disease. CABG. Hyperlipidemia. Diabetes mellitus type 2. Acute on chronic kidney disease. NEHA BROOKS MD Nov 28, 2018 15:16
[2018-11-28 20:00] VITALS: BP 128/75; PULSE 71; RESP 18
[2018-11-28] MEDS: ATORVASTATIN 40 MG TAB PO SCH (20:27)
[2018-11-28] MEDS: SENNA TAB PO SCH (20:27)
[2018-11-28] MEDS: INSULIN GLARGINE [LANTus] (100 UNITS/ML) SYG SC SCH (20:28)
[2018-11-29 02:00] VITALS: BP 136/77; PULSE 67; RESP 18
[2018-11-29] MEDS: ACCU-CHEK XX SCH ×5 (02:00→20:45)
[2018-11-29] MEDS: PANTOPRAZOLE (EC) 40 MG TAB PO SCH (06:34)
[2018-11-29 07:00] VITALS: BP 116/69; PULSE 74; RESP 18
[2018-11-29] MEDS: INSULIN ASPART [NOVOLOG] 3 ML PEN SC SCH ×8 (07:35→20:44)
[2018-11-29] MEDS: LINAGLIPTIN 5 MG TABLET PO SCH (08:13)
[2018-11-29] MEDS: ASPIRIN 81 MG TAB PO SCH (08:59)
[2018-11-29] MEDS: METOPROLOL (XL) 50 MG TAB PO SCH (08:59)
[2018-11-29] MEDS: DOCUSATE SODIUM 100 MG CAP PO SCH ×2 (08:59→20:39)
[2018-11-29] MEDS: CLOPIDOGREL 75 MG TAB PO SCH (09:00)
[2018-11-29] MEDS: BALSAM PERU/CASTOR OIL 60 GM TUBE TOP SCH (09:00)
[2018-11-29] MEDS: ENOXAPARIN 30 MG/0.3 ML SYG SC SCH (09:01)
[2018-11-29 14:00] VITALS: BP 116/65; PULSE 66; RESP 18
--- NOTE | 2018-11-29 14:54 | PN ---
Date/Time of Note Date/Time of Note DATE: 11/29/18 TIME: 14:53 Assessment/Plan VTE Prophylaxis Risk score (from [facility] [place])>0 risk: 3 SCD applied (from [facility] [place]): No SCD contraindicated: low risk/ambulating Pharmacological prophylaxis: NA/contraindicated Pharm contraindication: low risk/ambulating Lines/Catheters IV [facility] Type (from [facility] Saline Lock Urinary Cath still in place: No Assessment/Plan Hospital Course 1 right arm weakness MRI brain 11/20/18 1. Acute, ischemic, infarcts in the left posterior frontal paige radiography and left external capsule 2. DM type II uncontrolled 3. Obesity 4. Hypertension 5. SIRS, source ? 6. Hx of 3 vessel heart bypass. 2003 7. hx of herniorrhaphy left 8. Injury of the right big toe 9. Hx of cellulitis 10. Chronic kidney disease. UA is negative CR 1.3 now with VLADIMIR and hyperkalem ia, VLADIMIR now with improvement Assessment/Plan -Hold lisinopril -Hold metformin - NS at 50 cc/hr> gentle iv fluids> kidny function function improved -CW ASA 81 and plavix 75 and atorvastatin 40 -Aggressive PT/OT -dec Lantus to 18 and decrease mealtime insulin -Echo neg and carotid ultrasound negative -cardiology consult dr Bonner -neurology consult Dr Matthews Result Diagram: 11/27/18 0608 11/29/18 0648 Results 24hrs Laboratory Tests Test 11/28/18 17:08 11/28/18 20:27 11/29/18 06:48 11/29/18 08:08 Bedside Glucose 104 151 125 Sodium Level 141 Potassium Level 3.9 Chloride Level 106 Carbon Dioxide Level 28 Anion Gap 7 Blood Urea Nitrogen 30 H Creatinine 1.31 H Est Glomerular 55 L Filtrat Rate mL/min Glucose Level 117 Calcium Level 9.1 Test 11/29/18 12:07 Bedside Glucose 250 H Subjective 24 Hr Interval Summary Free Text/Dictation Doing well. Working with PT Exam/Review of Systems Exam Vitals Vital Signs Date Temp Pulse Resp B/P (MAP) Pulse Ox O2 O2 Flow FiO2 Time Delivery Rate 11/29/18 97.6 74 18 116/69 97 Room Air 07:00 (85) Intake and Output 11/28/18 11/28/18 11/29/18 1515:00 23:00 07:00 IntakeIntake Total 1950 ml 700 ml OutputOutput Total 1200 ml BalanceBalance 750 ml 700 ml Exam No acute distress, no events overnight. Eyes: anicteric, EOM's intact, no pallor Nose: no rhinorrhea Neck: supple, no thyromegaly, no carotid bruits Lungs: clear bilaterally. Normal air movement CVS: regular rate and rhythm, no murmurs Abdomen: soft, bowel sounds present, no hepatosplenomegally, no masses, no rebound or guarding. neuro right UE weakness 3/5 Results Results 24hrs Laboratory Tests Test 11/28/18 17:08 11/28/18 20:27 11/29/18 06:48 11/29/18 08:08 Bedside Glucose 104 151 125 Sodium Level 141 Potassium Level 3.9 Chloride Level 106 Carbon Dioxide Level 28 Anion Gap 7 Blood Urea Nitrogen 30 H Creatinine 1.31 H Est Glomerular 55 L Filtrat Rate mL/min Glucose Level 117 Calcium Level 9.1 Test 11/29/18 12:07 Bedside Glucose 250 H Medications Medication Current Medications Docusate Sodium (Colace) 100 mg BID PO Last administered on 11/29/18at 08:59; Admin Dose 100 MG; Start 11/21/18 at 21:00 Senna (Senokot) 1 tab HS PO Last administered on 11/28/18at 20:27; Admin Dose 1 TAB; Start 11/21/18 at 21:00 Magnesium Hydroxide (Milk Of Mag) 30 ml BID PRN PO CONSTIPATION Last administered on 11/23/18at 00:38; Admin Dose 30 ML; Start 11/21/18 at 17:30 Lactulose (Enulose) 20 gm DAILY PRN PO CONSTIPATION Last administered on 11/24/18at 04:13; Admin Dose 20 GM; Start 11/21/18 at 17:30 Bisacodyl (Dulcolax Supp) 10 mg DAILY PRN [place] CONSTIPATION; Start 11/21/18 at 17:30 Acetaminophen (Tylenol Tab) 650 mg Q4H PRN PO PAIN Last administered on 11/21/18at 22:19; Admin Dose 650 MG; Start 11/21/18 at 17:30 Miscellaneous Information (Pending [facility] Order For Wound Care) This patient bates... PRN PRN XX WOUND CARE; Start 11/21/18 at 17:30 Diagnostic Test (Pha) (Accu-Chek) 1 02 XX Last administered on 11/26/18 02:04; Admin Dose 1 EA; Start 11/22/18 at 02:00 Insulin Aspart (Novolog Insulin Pen) NOVOLOG *MILD* ALGORITHM WITH MEALS BEDTIME SC Last administered on 11/29/18 12:11; Admin Dose 3 UNIT; Start 11/21/18 at 21:00 Glucagon (Glucagen) 1 mg PRN PRN IM DECREASED GLUCOSE; Start 11/21/18 at 18:00 Glucose (Glutose) 15 gm PRN PRN PO DECREASED GLUCOSE; Start 11/21/18 at 18:00 Glucose (Glutose) 22.5 gm PRN PRN PO DECREASED GLUCOSE; Start 11/21/18 at 18:00 Aspirin (Aspirin) 81 mg DAILY PO Last administered on 11/29/18 08:59; Admin Dose 81 MG; Start 11/22/18 at 09:00 Atorvastatin Calcium (Lipitor) 40 mg HS PO Last administered on 11/28/18 20:27; Admin Dose 40 MG; Start 11/21/18 at 21:00 Clopidogrel Bisulfate (plaVIX) 75 mg DAILY PO Last administered on 11/29/18 09:00; Admin Dose 75 MG; Start 11/22/18 at 09:00 Hydralazine HCl (Apresoline) 5 mg Q6H PRN IV ELEVATED BLOOD PRESSURE; Start 11/21/18 at 18:00 Linagliptin (Tradjenta) 5 mg DAILY PO Last administered on 11/29/18 08:13; Admin Dose 5 MG; Start 11/22/18 at 09:00 Metoprolol Succinate (Toprol Xl) 50 mg DAILY PO Last administered on 11/29/18 08:59; Admin Dose 50 MG; Start 11/22/18 at 09:00 Pantoprazole (Protonix Tab) 40 mg DAILY@06 PO Last administered on 11/29/18 06:34; Admin Dose 40 MG; Start 11/22/18 at 06:00 Insulin Aspart (Novolog Insulin Pen) 6 unit WITH BREAKFAST SC Last administered on 11/29/18 08:18; Admin Dose 6 UNIT; Start 11/24/18 at 07:35 Insulin Aspart (Novolog Insulin Pen) 6 unit WITH LUNCH SC Last administered on 11/29/18 12:11; Admin Dose 6 UNIT; Start 11/24/18 at 12:00 Insulin Aspart (Novolog Insulin Pen) 6 unit WITH DINNER SC Last administered on 11/28/18at 17:12; Admin Dose 6 UNIT; Start 11/24/18 at 17:35 Insulin Glargine (Lantus) 22 units DAILY@2000 SC Last administered on 11/28/18 20:28; Admin Dose 22 UNITS; Start 11/23/18 at 20:00 Diagnostic Test (Pha) (Accu-Chek) 1 ea AC MEALS AND BEDTIME XX Last administered on 11/29/18at 12:11; Admin Dose 1 EA; Start 11/23/18 at 21:00 Enoxaparin Sodium (Lovenox) 30 mg DAILY SC Last administered on 11/29/18 09:01; Admin Dose 30 MG; Start 11/29/18 at 09:00 JAMES WILLIS MD Nov 29, 2018 14:54
--- NOTE | 2018-11-29 15:03 | PN ---
Date/Time of Note Date/Time of Note DATE: 11/29/18 TIME: 15:01 Subjective patient frustrated that his UE is not improving as rapidly as he would like. Objective Vital Signs Date Temp Pulse Resp B/P (MAP) Pulse Ox O2 O2 Flow FiO2 Time Delivery Rate 11/29/18 97.6 74 18 116/69 97 Room Air 07:00 (85) Intake and Output 11/28/18 11/28/18 11/29/18 1515:00 23:00 07:00 IntakeIntake Total 1950 ml 700 ml OutputOutput Total 1200 ml BalanceBalance 750 ml 700 ml Exam Pulm-cta abd-soft SBA ambulation improving fine finger movement, but pincer grasp still weak Results/Medications Result Diagram: 11/27/18 0608 11/29/18 0648 Results 24 hrs Laboratory Tests Test 11/28/18 17:08 11/28/18 20:27 11/29/18 06:48 11/29/18 08:08 Bedside Glucose 104 151 125 Sodium Level 141 Potassium Level 3.9 Chloride Level 106 Carbon Dioxide Level 28 Anion Gap 7 Blood Urea Nitrogen 30 H Creatinine 1.31 H Est Glomerular 55 L Filtrat Rate mL/min Glucose Level 117 Calcium Level 9.1 Test 11/29/18 12:07 Bedside Glucose 250 H Medications Current Medications Docusate Sodium (Colace) 100 mg BID PO Last administered on 11/29/18at 08:59; Admin Dose 100 MG; Start 11/21/18 at 21:00 Senna (Senokot) 1 tab HS PO Last administered on 11/28/18at 20:27; Admin Dose 1 TAB; Start 11/21/18 at 21:00 Magnesium Hydroxide (Milk Of Mag) 30 ml BID PRN PO CONSTIPATION Last administered on 11/23/18at 00:38; Admin Dose 30 ML; Start 11/21/18 at 17:30 Lactulose (Enulose) 20 gm DAILY PRN PO CONSTIPATION Last administered on 11/24/18at 04:13; Admin Dose 20 GM; Start 11/21/18 at 17:30 Bisacodyl (Dulcolax Supp) 10 mg DAILY PRN [place] CONSTIPATION; Start 11/21/18 at 17:30 Acetaminophen (Tylenol Tab) 650 mg Q4H PRN PO PAIN Last administered on 11/21/18at 22:19; Admin Dose 650 MG; Start 11/21/18 at 17:30 Miscellaneous Information (Pending [facility] Order For Wound Care) This patient bates... PRN PRN XX WOUND CARE; Start 11/21/18 at 17:30 Diagnostic Test (Pha) (Accu-Chek) 1 ea 02 XX Last administered on 11/26/18at 02:04; Admin Dose 1 EA; Start 11/22/18 at 02:00 Insulin Aspart (Novolog Insulin Pen) NOVOLOG *MILD* ALGORITHM WITH MEALS BEDTIME SC Last administered on 11/29/18at 12:11; Admin Dose 3 UNIT; Start 11/21/18 at 21:00 Glucagon (Glucagen) 1 mg PRN PRN IM DECREASED GLUCOSE; Start 11/21/18 at 18:00 Glucose (Glutose) 15 gm PRN PRN PO DECREASED GLUCOSE; Start 11/21/18 at 18:00 Glucose (Glutose) 22.5 gm PRN PRN PO DECREASED GLUCOSE; Start 11/21/18 at 18:00 Aspirin (Aspirin) 81 mg DAILY PO Last administered on 11/29/18at 08:59; Admin Dose 81 MG; Start 11/22/18 at 09:00 Atorvastatin Calcium (Lipitor) 40 mg HS PO Last administered on 11/28/18at 20:27; Admin Dose 40 MG; Start 11/21/18 at 21:00 Clopidogrel Bisulfate (plaVIX) 75 mg DAILY PO Last administered on 11/29/18at 09:00; Admin Dose 75 MG; Start 11/22/18 at 09:00 Hydralazine HCl (Apresoline) 5 mg Q6H PRN IV ELEVATED BLOOD PRESSURE; Start 11/21/18 at 18:00 Linagliptin (Tradjenta) 5 mg DAILY PO Last administered on 11/29/18 08:13; Admin Dose 5 MG; Start 11/22/18 at 09:00 Metoprolol Succinate (Toprol Xl) 50 mg DAILY PO Last administered on 11/29/18 08:59; Admin Dose 50 MG; Start 11/22/18 at 09:00 Pantoprazole (Protonix Tab) 40 mg DAILY@06 PO Last administered on 11/29/18at 06:34; Admin Dose 40 MG; Start 11/22/18 at 06:00 Diagnostic Test (Pha) (Accu-Chek) 1 ea AC MEALS AND BEDTIME XX Last administered on 11/29/18at 12:11; Admin Dose 1 EA; Start 11/23/18 at 21:00 Enoxaparin Sodium (Lovenox) 30 mg DAILY SC Last administered on 11/29/18at 09:01; Admin Dose 30 MG; Start 11/29/18 at 09:00 Insulin Aspart (Novolog Insulin Pen) 4 unit WITH BREAKFAST SC ; Start 11/30/18 at 07:35; Status UNV Insulin Aspart (Novolog Insulin Pen) 4 unit WITH LUNCH SC ; Start 11/30/18 at 12:00; Status UNV Insulin Aspart (Novolog Insulin Pen) 4 unit WITH DINNER SC ; Start 11/29/18 at 17:35; Status UNV Insulin Glargine (Lantus) 18 units DAILY@2000 SC ; Start 11/29/18 at 20:00; Status UNV Assessment/Plan Additional Assessment/Plan rehab- Left frontal paige radiata infarct cerebrovascular accident with right- sided weakness. Great progress with functional mobility, continue interdisciplinary rehab and patient education regarding UE ther ex and finger movement Hypertension. Coronary artery disease. CABG. Hyperlipidemia. Diabetes mellitus type 2. Acute on chronic kidney disease. NEHA BROOKS MD Nov 29, 2018 15:03
--- NOTE | 2018-11-29 15:50 | CONS ---
Assessment/Plan Assessment/Plan Hospital Course (Demo Recall) IMPRESSION: 1. Hypertension-reasonable control 2. History of coronary artery disease, status post coronary artery bypass grafting with a known occlusion of one graft by catheterization 2016. Negative troponin x3 here. No chest pain.-Echo EF 50%, no sig valve abnl 3. Dyslipidemia. 4. Right arm weakness. Rule out acute cerebrovascular accident. Negative head CT at outside hospital. Now s/p MRI revealing acute CVA. No sig arrythmias noted on tele 5. Diabetes mellitus. 6. Renal failure-acute onset Recc: -Now in rehab -Contineu current BB -zestril held due to ARF -Continue asa/plavix -continue statin -PT/OT Consultation Date/Type/Reason Admit Date/Time Nov 21, 2018 at 16:58 Initial Consult Date 11/22/18 Type of Consult Cardiology Reason for Consultation HTN Requesting Provider: JAMES WILLIS MD Date/Time of Note DATE: 11/29/18 TIME: 15:48 Exam/Review of Systems Vital Signs Vitals Vital Signs Date Temp Pulse Resp B/P (MAP) Pulse Ox O2 O2 Flow FiO2 Time Delivery Rate 11/29/18 97.6 74 18 116/69 97 Room Air 07:00 (85) Intake and Output 11/28/18 11/28/18 11/29/18 1515:00 23:00 07:00 IntakeIntake Total 1950 ml 700 ml OutputOutput Total 1200 ml BalanceBalance 750 ml 700 ml Exam Exam Review of Systems: CONSTITUTIONAL: No fevers, chills. PULMONARY: No sob CARDIOVASCULAR: No chest pain/palpitations GASTROINTESTINAL: No nausea/vomiting. GENITOURINARY: No hematuria/dysuria. MUSCULOSKELETAL: No myagias/arthalgias. PSYCHIATRIC: The patient denies depression. NEUROLOGIC: focal RUE weakness Constitutional: alert, oriented Psych: no complaints Head: normocephalic ENMT: mucosa pink and moist Neck: supple, jvd (9 cm water) Respiratory: diminished breath sounds Cardiovascular: regular rate and rhythm Gastrointestinal: soft, non-tender Musculoskeletal: muscle weakness (RUE) Extremities: edema (none) Neurological: focal weakness (RUE) Labs Result Diagram: 11/27/18 0608 11/29/18 0648 Results 24hrs Laboratory Tests Test 11/28/18 17:08 11/28/18 20:27 11/29/18 06:48 11/29/18 08:08 Bedside Glucose 104 151 125 Sodium Level 141 Potassium Level 3.9 Chloride Level 106 Carbon Dioxide Level 28 Anion Gap 7 Blood Urea Nitrogen 30 H Creatinine 1.31 H Est Glomerular 55 L Filtrat Rate mL/min Glucose Level 117 Calcium Level 9.1 Test 11/29/18 12:07 Bedside Glucose 250 H Medications Medications Current Medications Docusate Sodium (Colace) 100 mg BID PO Last administered on 11/29/18 08:59; Admin Dose 100 MG; Start 11/21/18 at 21:00 Senna (Senokot) 1 tab HS PO Last administered on 11/28/18 20:27; Admin Dose 1 TAB; Start 11/21/18 at 21:00 Magnesium Hydroxide (Milk Of Mag) 30 ml BID PRN PO CONSTIPATION Last administered on 11/23/18 00:38; Admin Dose 30 ML; Start 11/21/18 at 17:30 Lactulose (Enulose) 20 gm DAILY PRN PO CONSTIPATION Last administered on 11/24/18at 04:13; Admin Dose 20 GM; Start 11/21/18 at 17:30 Bisacodyl (Dulcolax Supp) 10 mg DAILY PRN [place] CONSTIPATION; Start 11/21/18 at 17:30 Acetaminophen (Tylenol Tab) 650 mg Q4H PRN PO PAIN Last administered on 11/21/18 22:19; Admin Dose 650 MG; Start 11/21/18 at 17:30 Miscellaneous Information (Pending [facility] Order For Wound Care) This patient bates... PRN PRN XX WOUND CARE; Start 11/21/18 at 17:30 Diagnostic Test (Pha) (Accu-Chek) 1 ea 02 XX Last administered on 11/26/18at 02:04; Admin Dose 1 EA; Start 11/22/18 at 02:00 Insulin Aspart (Novolog Insulin Pen) NOVOLOG *MILD* ALGORITHM WITH MEALS BEDTIME SC Last administered on 11/29/18 12:11; Admin Dose 3 UNIT; Start 11/21/18 at 21:00 Glucagon (Glucagen) 1 mg PRN PRN IM DECREASED GLUCOSE; Start 11/21/18 at 18:00 Glucose (Glutose) 15 gm PRN PRN PO DECREASED GLUCOSE; Start 11/21/18 at 18:00 Glucose (Glutose) 22.5 gm PRN PRN PO DECREASED GLUCOSE; Start 11/21/18 at 18:00 Aspirin (Aspirin) 81 mg DAILY PO Last administered on 11/29/18 08:59; Admin Dose 81 MG; Start 11/22/18 at 09:00 Atorvastatin Calcium (Lipitor) 40 mg HS PO Last administered on 11/28/18 20:27; Admin Dose 40 MG; Start 11/21/18 at 21:00 Clopidogrel Bisulfate (plaVIX) 75 mg DAILY PO Last administered on 11/29/18 09:00; Admin Dose 75 MG; Start 11/22/18 at 09:00 Hydralazine HCl (Apresoline) 5 mg Q6H PRN IV ELEVATED BLOOD PRESSURE; Start 11/21/18 at 18:00 Linagliptin (Tradjenta) 5 mg DAILY PO Last administered on 11/29/18 08:13; Admin Dose 5 MG; Start 11/22/18 at 09:00 Metoprolol Succinate (Toprol Xl) 50 mg DAILY PO Last administered on 11/29/18 08:59; Admin Dose 50 MG; Start 11/22/18 at 09:00 Pantoprazole (Protonix Tab) 40 mg DAILY@06 PO Last administered on 11/29/18 06:34; Admin Dose 40 MG; Start 11/22/18 at 06:00 Diagnostic Test (Pha) (Accu-Chek) 1 ea AC MEALS AND BEDTIME XX Last administered on 11/29/18at 12:11; Admin Dose 1 EA; Start 11/23/18 at 21:00 Enoxaparin Sodium (Lovenox) 30 mg DAILY SC Last administered on 11/29/18 09:01; Admin Dose 30 MG; Start 11/29/18 at 09:00 Insulin Aspart (Novolog Insulin Pen) 4 unit WITH BREAKFAST SC ; Start 11/30/18 at 07:35 Insulin Aspart (Novolog Insulin Pen) 4 unit WITH LUNCH SC ; Start 11/30/18 at 12:00 Insulin Aspart (Novolog Insulin Pen) 4 unit WITH DINNER SC ; Start 11/29/18 at 17:35 Insulin Glargine (Lantus) 18 units DAILY@2000 SC ; Start 11/29/18 at 20:00 JUDAH SU Nov 29, 2018 15:50
[2018-11-29 19:25] VITALS: BP 123/69; PULSE 74; RESP 18
[2018-11-29] MEDS ORDERED: INSULIN GLARGINE [LANTus] (100 UNITS/ML) SYG SC SCH (20:00)
[2018-11-29] MEDS: ATORVASTATIN 40 MG TAB PO SCH (20:39)
[2018-11-29] MEDS: SENNA TAB PO SCH (20:39)
[2018-11-30] MEDS: ACCU-CHEK XX SCH ×5 (02:00→21:00)
[2018-11-30 02:05] VITALS: BP 118/70; PULSE 77; RESP 18
[2018-11-30] MEDS: PANTOPRAZOLE (EC) 40 MG TAB PO SCH (06:21)
[2018-11-30 07:30] VITALS: BP 137/79; PULSE 67; RESP 18
[2018-11-30] MEDS: INSULIN ASPART [NOVOLOG] 3 ML PEN SC SCH ×7 (07:35→21:27)
[2018-11-30] MEDS: LINAGLIPTIN 5 MG TABLET PO SCH (08:09)
[2018-11-30] MEDS: DOCUSATE SODIUM 100 MG CAP PO SCH ×2 (09:12→21:24)
[2018-11-30] MEDS: CLOPIDOGREL 75 MG TAB PO SCH (09:14)
[2018-11-30] MEDS: METOPROLOL (XL) 50 MG TAB PO SCH (09:16)
[2018-11-30] MEDS: BALSAM PERU/CASTOR OIL 60 GM TUBE TOP SCH (09:17)
[2018-11-30] MEDS: ENOXAPARIN 30 MG/0.3 ML SYG SC SCH (09:17)
[2018-11-30] MEDS: ASPIRIN 81 MG TAB PO SCH (09:18)
[2018-11-30 14:00] VITALS: BP 121/69; PULSE 78; RESP 20
--- NOTE | 2018-11-30 16:39 | PN ---
Date/Time of Note Date/Time of Note DATE: 11/30/18 TIME: 15:59 Objective Vital Signs Date Temp Pulse Resp B/P (MAP) Pulse Ox O2 O2 Flow FiO2 Time Delivery Rate 11/30/18 97.7 78 20 121/69 96 Room Air 14:00 (86) Intake and Output 11/29/18 11/29/18 11/30/18 1414:59 22:59 06:59 IntakeIntake Total 150 ml 1300 ml 950 ml OutputOutput Total 600 ml BalanceBalance 150 ml 700 ml 950 ml Exam INTERDISCIPLINARY TEAM CONFERENCE Attended by PT, OT, ST, Social Work, Rehabilitation Nursing, Livestock Farmer and Manager SupplierEnamel Machine Operator Exam: Pulm- cta Abd-soft BOWEL- Cont BLADDER-Cont SKIN- intact OT- DRESSING-sba BATHING- sba TOILETING- sba PT- BED MOBILITY- sba TRANSFERS- sba AMBULATION- sba 150 feet A/P- Interdisciplinary team conference held today. Please see interdisciplinary sheet. Working toward d.c. on 12/01 with post discharge follow up of physical therapy, occupational therapy. Results/Medications Result Diagram: 11/27/18 0608 11/29/18 0648 Results 24 hrs Laboratory Tests Test 11/29/18 17:22 11/29/18 20:39 11/30/18 08:06 11/30/18 12:15 Bedside Glucose 112 122 92 181 Medications Current Medications Docusate Sodium (Colace) 100 mg BID PO Last administered on 11/30/18at 09:12; Admin Dose 100 MG; Start 11/21/18 at 21:00 Senna (Senokot) 1 tab HS PO Last administered on 11/29/18at 20:39; Admin Dose 1 TAB; Start 11/21/18 at 21:00 Magnesium Hydroxide (Milk Of Mag) 30 ml BID PRN PO CONSTIPATION Last administered on 11/23/18at 00:38; Admin Dose 30 ML; Start 11/21/18 at 17:30 Lactulose (Enulose) 20 gm DAILY PRN PO CONSTIPATION Last administered on 11/24/18at 04:13; Admin Dose 20 GM; Start 11/21/18 at 17:30 Bisacodyl (Dulcolax Supp) 10 mg DAILY PRN [place] CONSTIPATION; Start 11/21/18 at 17:30 Acetaminophen (Tylenol Tab) 650 mg Q4H PRN PO PAIN Last administered on 11/21/18 22:19; Admin Dose 650 MG; Start 11/21/18 at 17:30 Miscellaneous Information (Pending [facility] Order For Wound Care) This patient bates... PRN PRN XX WOUND CARE; Start 11/21/18 at 17:30 Diagnostic Test (Pha) (Accu-Chek) 1 ea 02 XX Last administered on 11/26/18at 02:04; Admin Dose 1 EA; Start 11/22/18 at 02:00 Insulin Aspart (Novolog Insulin Pen) NOVOLOG *MILD* ALGORITHM WITH MEALS BEDTIME SC Last administered on 11/30/18 12:22; Admin Dose 2 UNIT; Start 11/21/18 at 21:00 Glucagon (Glucagen) 1 mg PRN PRN IM DECREASED GLUCOSE; Start 11/21/18 at 18:00 Glucose (Glutose) 15 gm PRN PRN PO DECREASED GLUCOSE; Start 11/21/18 at 18:00 Glucose (Glutose) 22.5 gm PRN PRN PO DECREASED GLUCOSE; Start 11/21/18 at 18:00 Aspirin (Aspirin) 81 mg DAILY PO Last administered on 11/30/18 09:18; Admin Dose 81 MG; Start 11/22/18 at 09:00 Atorvastatin Calcium (Lipitor) 40 mg HS PO Last administered on 11/29/18at 20:39; Admin Dose 40 MG; Start 11/21/18 at 21:00 Clopidogrel Bisulfate (plaVIX) 75 mg DAILY PO Last administered on 11/30/18 09:14; Admin Dose 75 MG; Start 11/22/18 at 09:00 Hydralazine HCl (Apresoline) 5 mg Q6H PRN IV ELEVATED BLOOD PRESSURE; Start 11/21/18 at 18:00 Linagliptin (Tradjenta) 5 mg DAILY PO Last administered on 11/30/18 08:09; Admin Dose 5 MG; Start 11/22/18 at 09:00 Metoprolol Succinate (Toprol Xl) 50 mg DAILY PO Last administered on 11/30/18 09:16; Admin Dose 50 MG; Start 11/22/18 at 09:00 Pantoprazole (Protonix Tab) 40 mg DAILY@06 PO Last administered on 11/30/18 06:21; Admin Dose 40 MG; Start 11/22/18 at 06:00 Diagnostic Test (Pha) (Accu-Chek) 1 ea AC MEALS AND BEDTIME XX Last administered on 11/30/18 12:15; Admin Dose 1 EA; Start 11/23/18 at 21:00 Enoxaparin Sodium (Lovenox) 30 mg DAILY SC Last administered on 11/30/18 09:17; Admin Dose 30 MG; Start 11/29/18 at 09:00 Insulin Aspart (Novolog Insulin Pen) 4 unit WITH BREAKFAST SC Last administered on 11/30/18 08:09; Admin Dose 4 UNIT; Start 11/30/18 at 07:35 Insulin Aspart (Novolog Insulin Pen) 4 unit WITH LUNCH SC Last administered on 11/30/18 12:24; Admin Dose 4 UNIT; Start 11/30/18 at 12:00 Insulin Aspart (Novolog Insulin Pen) 4 unit WITH DINNER SC Last administered on 11/29/18 17:47; Admin Dose 4 UNIT; Start 11/29/18 at 17:35 Insulin Glargine (Lantus) 18 units DAILY@2000 SC Last administered on 11/29/18 20:41; Admin Dose 18 UNITS; Start 11/29/18 at 20:00 NEHA BROOKS MD Nov 30, 2018 16:39
--- NOTE | 2018-11-30 18:28 | PN ---
Date/Time of Note Date/Time of Note DATE: 11/30/18 TIME: 18:26 Assessment/Plan VTE Prophylaxis Risk score (from [facility])>0 risk: 4 SCD applied (from [facility]): No SCD contraindicated: low risk/ambulating Pharmacological prophylaxis: NA/contraindicated Pharm contraindication: low risk/ambulating Lines/Catheters IV [facility] Type [facility]from [facility] [place] Urinary Cath still in place: No Assessment/Plan Hospital Course 1 right arm weakness MRI brain 11/20/18 1. Acute, ischemic, infarcts in the left posterior frontal paige radiography and left external capsule 2. DM type II uncontrolled 3. Obesity 4. Hypertension 5. SIRS, source ? 6. Hx of 3 vessel heart bypass. 2003 7. hx of herniorrhaphy left 8. Injury of the right big toe 9. Hx of cellulitis 10. Chronic kidney disease. UA is negative CR 1.3 now with VLADIMIR and hyperkalem ia, VLADIMIR now with improvement Assessment/Plan - recheck labs -Hold lisinopril -CW ASA 81 and plavix 75 and atorvastatin 40/mtp -Aggressive PT/OT -dec Lantus to 12 and decrease mealtime insulin -Echo neg and carotid ultrasound negative -cardiology consult dr Bonner -neurology consult Dr Matthews Result Diagram: 11/27/18 0608 11/29/18 0648 Results 24hrs Laboratory Tests Test 11/29/18 20:39 11/30/18 08:06 11/30/18 12:15 11/30/18 17:37 Bedside Glucose 122 92 181 134 Subjective 24 Hr Interval Summary Free Text/Dictation feels better Exam/Review of Systems Exam Vitals Vital Signs Date Temp Pulse Resp B/P (MAP) Pulse Ox O2 O2 Flow FiO2 Time Delivery Rate 11/30/18 97.7 78 20 121/69 96 Room Air 14:00 (86) Intake and Output 11/29/18 11/29/18 11/30/18 1515:00 23:00 07:00 IntakeIntake Total 150 ml 1300 ml 950 ml OutputOutput Total 600 ml BalanceBalance 150 ml 700 ml 950 ml Exam No acute distress, no events overnight. Eyes: anicteric, EOM's intact, no pallor Nose: no rhinorrhea Neck: supple, no thyromegaly, no carotid bruits Lungs: clear bilaterally. Normal air movement CVS: regular rate and rhythm, no murmurs Abdomen: soft, bowel sounds present, no hepatosplenomegally, no masses, no rebound or guarding. neuro right UE weakness 3/5 Results Results 24hrs Laboratory Tests Test 11/29/18 20:39 11/30/18 08:06 11/30/18 12:15 11/30/18 17:37 Bedside Glucose 122 92 181 134 Medications Medication Current Medications Docusate Sodium (Colace) 100 mg BID PO Last administered on 11/30/18at 09:12; Admin Dose 100 MG; Start 11/21/18 at 21:00 Senna (Senokot) 1 tab HS PO Last administered on 11/29/18at 20:39; Admin Dose 1 TAB; Start 11/21/18 at 21:00 Magnesium Hydroxide (Milk Of Mag) 30 ml BID PRN PO CONSTIPATION Last administered on 11/23/18at 00:38; Admin Dose 30 ML; Start 11/21/18 at 17:30 Lactulose (Enulose) 20 gm DAILY PRN PO CONSTIPATION Last administered on 11/24/18at 04:13; Admin Dose 20 GM; Start 11/21/18 at 17:30 Bisacodyl (Dulcolax Supp) 10 mg DAILY PRN [place] CONSTIPATION; Start 11/21/18 at 17:30 Acetaminophen (Tylenol Tab) 650 mg Q4H PRN PO PAIN Last administered on 11/21/18at 22:19; Admin Dose 650 MG; Start 11/21/18 at 17:30 Miscellaneous Information (Pending [facility] Order For Wound Care) This patient bates... PRN PRN XX WOUND CARE; Start 11/21/18 at 17:30 Diagnostic Test (Pha) (Accu-Chek) 1 ea 02 XX Last administered on 11/26/18at 02:04; Admin Dose 1 EA; Start 11/22/18 at 02:00 Insulin Aspart (Novolog Insulin Pen) NOVOLOG *MILD* ALGORITHM WITH MEALS BEDTIME SC Last administered on 11/30/18at 12:22; Admin Dose 2 UNIT; Start 11/21/18 at 21:00 Glucagon (Glucagen) 1 mg PRN PRN IM DECREASED GLUCOSE; Start 11/21/18 at 18:00 Glucose (Glutose) 15 gm PRN PRN PO DECREASED GLUCOSE; Start 11/21/18 at 18:00 Glucose (Glutose) 22.5 gm PRN PRN PO DECREASED GLUCOSE; Start 11/21/18 at 18:00 Aspirin (Aspirin) 81 mg DAILY PO Last administered on 11/30/18 09:18; Admin Dose 81 MG; Start 11/22/18 at 09:00 Atorvastatin Calcium (Lipitor) 40 mg HS PO Last administered on 11/29/18 20:39; Admin Dose 40 MG; Start 11/21/18 at 21:00 Clopidogrel Bisulfate (plaVIX) 75 mg DAILY PO Last administered on 11/30/18 09:14; Admin Dose 75 MG; Start 11/22/18 at 09:00 Hydralazine HCl (Apresoline) 5 mg Q6H PRN IV ELEVATED BLOOD PRESSURE; Start 11/21/18 at 18:00 Linagliptin (Tradjenta) 5 mg DAILY PO Last administered on 11/30/18 08:09; Admin Dose 5 MG; Start 11/22/18 at 09:00 Metoprolol Succinate (Toprol Xl) 50 mg DAILY PO Last administered on 11/30/18 09:16; Admin Dose 50 MG; Start 11/22/18 at 09:00 Pantoprazole (Protonix Tab) 40 mg DAILY@06 PO Last administered on 11/30/18 06:21; Admin Dose 40 MG; Start 11/22/18 at 06:00 Diagnostic Test (Pha) (Accu-Chek) 1 ea AC MEALS AND BEDTIME XX Last administered on 11/30/18 17:40; Admin Dose 1 EA; Start 11/23/18 at 21:00 Enoxaparin Sodium (Lovenox) 30 mg DAILY SC Last administered on 11/30/18 09:17; Admin Dose 30 MG; Start 11/29/18 at 09:00 Insulin Aspart (Novolog Insulin Pen) 4 unit WITH BREAKFAST SC Last administered on 11/30/18 08:09; Admin Dose 4 UNIT; Start 11/30/18 at 07:35 Insulin Aspart (Novolog Insulin Pen) 4 unit WITH LUNCH SC Last administered on 11/30/18 12:24; Admin Dose 4 UNIT; Start 11/30/18 at 12:00 Insulin Aspart (Novolog Insulin Pen) 4 unit WITH DINNER SC Last administered on 11/30/18 17:43; Admin Dose 4 UNIT; Start 11/29/18 at 17:35 Insulin Glargine (Lantus) 18 units DAILY@2000 SC Last administered on 11/29/18at 20:41; Admin Dose 18 UNITS; Start 11/29/18 at 20:00 JAMES WILLIS MD Nov 30, 2018 18:28
[2018-11-30 19:15] VITALS: BP 136/78; PULSE 75; RESP 18
--- NOTE | 2018-11-30 19:43 | CONS ---
Assessment/Plan Assessment/Plan Hospital Course (Demo Recall) IMPRESSION: 1. Hypertension-reasonable control 2. History of coronary artery disease, status post coronary artery bypass grafting with a known occlusion of one graft by catheterization 2016. Negative troponin x3 here. No chest pain.-Echo EF 50%, no sig valve abnl 3. Dyslipidemia. 4. Right arm weakness. Rule out acute cerebrovascular accident. Negative head CT at outside hospital. Now s/p MRI revealing acute CVA. No sig arrythmias noted on tele 5. Diabetes mellitus. 6. Renal failure-acute onset, some mild improvemnt Recc: -Now in rehab -Contineu current BB -zestril held due to ARF -Continue asa/plavix -continue statin -PT/OT Consultation Date/Type/Reason Admit Date/Time Nov 21, 2018 at 16:58 Initial Consult Date 11/22/18 Type of Consult Cardiology Reason for Consultation HTN Requesting Provider: JAMES WILLIS MD Date/Time of Note DATE: 11/30/18 TIME: 19:41 Exam/Review of Systems Vital Signs Vitals Vital Signs Date Temp Pulse Resp B/P (MAP) Pulse Ox O2 O2 Flow FiO2 Time Delivery Rate 11/30/18 98.0 75 18 136/78 97 Room Air 19:15 (97) Intake and Output 11/29/18 11/29/18 11/30/18 1515:00 23:00 07:00 IntakeIntake Total 150 ml 1300 ml 950 ml OutputOutput Total 600 ml BalanceBalance 150 ml 700 ml 950 ml Exam Exam Review of Systems: CONSTITUTIONAL: No fevers, chills. PULMONARY: No sob CARDIOVASCULAR: No chest pain/palpitations GASTROINTESTINAL: No nausea/vomiting. GENITOURINARY: No hematuria/dysuria. MUSCULOSKELETAL: No myagias/arthalgias. PSYCHIATRIC: The patient denies depression. NEUROLOGIC: No weakness Constitutional: alert Psych: no complaints Head: normocephalic ENMT: mucosa pink and moist Neck: supple, jvd (9 cm water) Respiratory: diminished breath sounds Cardiovascular: regular rate and rhythm Gastrointestinal: soft, non-tender Musculoskeletal: muscle tone (normal) Extremities: edema (none) Neurological: focal weakness (RUE) Labs Result Diagram: 11/27/18 0608 11/29/18 0648 Results 24hrs Laboratory Tests Test 11/29/18 20:39 11/30/18 08:06 11/30/18 12:15 11/30/18 17:37 Bedside Glucose 122 92 181 134 Medications Medications Current Medications Docusate Sodium (Colace) 100 mg BID PO Last administered on 11/30/18 09:12; Admin Dose 100 MG; Start 11/21/18 at 21:00 Senna (Senokot) 1 tab HS PO Last administered on 11/29/18 20:39; Admin Dose 1 TAB; Start 11/21/18 at 21:00 Magnesium Hydroxide (Milk Of Mag) 30 ml BID PRN PO CONSTIPATION Last administered on 11/23/18at 00:38; Admin Dose 30 ML; Start 11/21/18 at 17:30 Lactulose (Enulose) 20 gm DAILY PRN PO CONSTIPATION Last administered on 11/24/18 04:13; Admin Dose 20 GM; Start 11/21/18 at 17:30 Bisacodyl (Dulcolax Supp) 10 mg DAILY PRN [place] CONSTIPATION; Start 11/21/18 at 17:30 Acetaminophen (Tylenol Tab) 650 mg Q4H PRN PO PAIN Last administered on 11/21/18 22:19; Admin Dose 650 MG; Start 11/21/18 at 17:30 Miscellaneous Information (Pending [facility] Order For Wound Care) This patient bates... PRN PRN XX WOUND CARE; Start 11/21/18 at 17:30 Diagnostic Test (Pha) (Accu-Chek) 1 ea 02 XX Last administered on 11/26/18at 02:04; Admin Dose 1 EA; Start 11/22/18 at 02:00 Insulin Aspart (Novolog Insulin Pen) NOVOLOG *MILD* ALGORITHM WITH MEALS B EDTIME SC Last administered on 11/30/18 12:22; Admin Dose 2 UNIT; Start 11/21/18 at 21:00 Glucagon (Glucagen) 1 mg PRN PRN IM DECREASED GLUCOSE; Start 11/21/18 at 18:00 Glucose (Glutose) 15 gm PRN PRN PO DECREASED GLUCOSE; Start 11/21/18 at 18:00 Glucose (Glutose) 22.5 gm PRN PRN PO DECREASED GLUCOSE; Start 11/21/18 at 18:00 Aspirin (Aspirin) 81 mg DAILY PO Last administered on 11/30/18 09:18; Admin Dose 81 MG; Start 11/22/18 at 09:00 Atorvastatin Calcium (Lipitor) 40 mg HS PO Last administered on 11/29/18 20:39; Admin Dose 40 MG; Start 11/21/18 at 21:00 Clopidogrel Bisulfate (plaVIX) 75 mg DAILY PO Last administered on 11/30/18 09:14; Admin Dose 75 MG; Start 11/22/18 at 09:00 Hydralazine HCl (Apresoline) 5 mg Q6H PRN IV ELEVATED BLOOD PRESSURE; Start 11/21/18 at 18:00 Linagliptin (Tradjenta) 5 mg DAILY PO Last administered on 11/30/18 08:09; Admin Dose 5 MG; Start 11/22/18 at 09:00 Metoprolol Succinate (Toprol Xl) 50 mg DAILY PO Last administered on 11/30/18 09:16; Admin Dose 50 MG; Start 11/22/18 at 09:00 Pantoprazole (Protonix Tab) 40 mg DAILY@06 PO Last administered on 11/30/18 06:21; Admin Dose 40 MG; Start 11/22/18 at 06:00 Diagnostic Test (Pha) (Accu-Chek) 1 ea AC MEALS AND BEDTIME XX Last administered on 11/30/18 17:40; Admin Dose 1 EA; Start 11/23/18 at 21:00 Enoxaparin Sodium (Lovenox) 30 mg DAILY SC Last administered on 11/30/18 09:17; Admin Dose 30 MG; Start 11/29/18 at 09:00 Insulin Aspart (Novolog Insulin Pen) 4 unit WITH BREAKFAST SC Last administered on 11/30/18 08:09; Admin Dose 4 UNIT; Start 11/30/18 at 07:35 Insulin Aspart (Novolog Insulin Pen) 4 unit WITH LUNCH SC Last administered on 11/30/18 12:24; Admin Dose 4 UNIT; Start 11/30/18 at 12:00 Insulin Aspart (Novolog Insulin Pen) 4 unit WITH DINNER SC Last administered o n 11/30/18 17:43; Admin Dose 4 UNIT; Start 11/29/18 at 17:35 Insulin Glargine (Lantus) 12 units DAILY@2000 SC ; Start 11/30/18 at 20:00 JUDAH SU Nov 30, 2018 19:43
[2018-11-30] MEDS ORDERED: INSULIN GLARGINE [LANTus] (100 UNITS/ML) SYG SC SCH (20:00)
[2018-11-30] MEDS: ATORVASTATIN 40 MG TAB PO SCH (21:24)
[2018-11-30] MEDS: SENNA TAB PO SCH (21:25)
[2018-12-01 02:00] VITALS: BP 125/68; PULSE 72; RESP 18
[2018-12-01] MEDS: ACCU-CHEK XX SCH ×3 (02:00→11:30)
[2018-12-01] MEDS: PANTOPRAZOLE (EC) 40 MG TAB PO SCH (06:27)
[2018-12-01 07:00] VITALS: BP 140/79; PULSE 71; RESP 18
[2018-12-01] MEDS: INSULIN ASPART [NOVOLOG] 3 ML PEN SC SCH ×4 (07:44→11:38)
[2018-12-01] MEDS: LINAGLIPTIN 5 MG TABLET PO SCH (07:45)
[2018-12-01] MEDS: DOCUSATE SODIUM 100 MG CAP PO SCH (08:51)
[2018-12-01] MEDS: ASPIRIN 81 MG TAB PO SCH (08:51)
[2018-12-01] MEDS: CLOPIDOGREL 75 MG TAB PO SCH (08:51)
[2018-12-01] MEDS: METOPROLOL (XL) 50 MG TAB PO SCH (08:52)
[2018-12-01] MEDS: ENOXAPARIN 30 MG/0.3 ML SYG SC SCH (08:56)
[2018-12-01] MEDS: BALSAM PERU/CASTOR OIL 60 GM TUBE TOP SCH (08:58)
== END 2018-12-01 11:30 | disposition home health service (06) | DRG 57 ==
LOC: VRC 16:58
PROVIDERS: ADMIT Internal Medicine; ATTEND Physical Medicine & Rehabilitation
PROC: F07Z5ZZ Bed Mobility Treatment (ICD-10-PCS; principal; 2018-11-22)
PROC: F07Z8ZZ Transfer Training Treatment (ICD-10-PCS; 2018-11-22)
PROC: F07Z9ZZ Gait Training/Functional Ambulation Treatment (ICD-10-PCS; 2018-11-22)
PROC: F08Z0ZZ Bathing/Showering Techniques Treatment (ICD-10-PCS; 2018-11-22)
PROC: F08Z1ZZ Dressing Techniques Treatment (ICD-10-PCS; 2018-11-22)
PROC: F08Z2ZZ Grooming/Personal Hygiene Treatment (ICD-10-PCS; 2018-11-22)
DX: I69.351 Hemiplegia and hemiparesis following cerebral infarction affecting right dominant side (principal); N17.9 Acute kidney failure, unspecified; E11.22 Type 2 diabetes mellitus with diabetic chronic kidney disease; E11.65 Type 2 diabetes mellitus with hyperglycemia; E87.5 Hyperkalemia; E78.5 Hyperlipidemia, unspecified; E66.9 Obesity, unspecified; I25.10 Atherosclerotic heart disease of native coronary artery without angina pectoris; I12.9 Hypertensive chronic kidney disease with stage 1 through stage 4 chronic kidney disease, or unspecified chronic kidney disease; N18.9 Chronic kidney disease, unspecified; Z74.09 Other reduced mobility; Z95.1 Presence of aortocoronary bypass graft; Z68.30 Body mass index [BMI] 30.0-30.9, adult; Z79.4 Long term (current) use of insulin; Z79.82 Long term (current) use of aspirin; Z79.02 Long term (current) use of antithrombotics/antiplatelets
CPT/HCPCS: 80048; 80053; 81001; 82962; 84132; 85025; 87081; 87086; 92523; 97110; 97112; 97116; 97150; 97163; 97166; 97530; 97535; J1650; J1815; J7030